=== PATIENT | female | born 1930 | race Caucasian/White ===

== ENCOUNTER 2018-08-04 08:30 | Inpatient (IN) ==
[2018-08-04] MEDS ORDERED: dilTIAZem HCl 5 MG/ML 5 ML VIAL IV STA (08:42)
[2018-08-04] MEDS ORDERED: FUROSEMIDE 40 MG/4 ML VIAL IV STA (08:42)
--- NOTE | 2018-08-04 09:03 | XRay Report ---
XR chest 1V portable CLINICAL HISTORY: 88 years-old Female presenting with Dyspnea. TECHNIQUE: Portable upright AP view of the chest was obtained. COMPARISON: None. FINDINGS: Atherosclerosis of the aortic arch. Cardiac silhouette enlarged. Pulmonary vascular prominence. Asymm etric bronchial wall thickening on the right with diffuse right lung density and more focal patchy no dular opacities with a slight basilar predominance. Small right and trace left pleural effusion suspe cted. No pneumothorax. Degenerative changes of the thoracic spine. Upper abdomen normal. IMPRESSION: 1. Cardiomegaly with volume overload. 2. Given the asymmetry of the right lung patchy infiltrates, an underlying process such as infection or metastatic disease cannot be excluded. Asymmetric congestive change and pulmonary edema are possi ble though less likely. Consider chest CT for further violation. 3. Small pleural effusions. Electronically signed by: Max Cosme M.D. 08/04/2018 9:02 AM
[2018-08-04 09:17] LABS: Hematocrit (blood only) 30.1 % (37-47); Hemoglobin 9.4 g/dL (12.0-16.0); Mean Corpuscular Hgb Conc 31.2 g/dL (32-36); Mean Corpuscular Volume 88.5 fL (80-100); Mean Platelet Volume 10.7 fL (7.4-10.4); Platelet Count 283 K/uL (130-400); RDW Coefficient of Variation 15.6 % (11.5-14.5); RDW Standard Deviation 50.5 fL (36.4-46.3); White Blood Count 17.19 K/uL (4.8-10.8)
[2018-08-04 09:35] LABS: INR 1.1 (0.9-1.1); Partial Thromboplastin Ratio 0.9; Partial Thromboplastin Time 23.3 Seconds (21.0-31.0); Prothrombin Time 10.9 Seconds (9.0-12.0)
[2018-08-04 09:36] LABS: Basophils # (auto) 0.02 K/uL (0-0.2); Basophils % (auto) 0.1 %; Echinocytes 1+; Eosinophils # (auto) 0.07 K/uL (0-0.5); Eosinophils % (auto) 0.4 %; Immature Granulocytes # (auto) 0.07 K/uL (0.00-0.02); Immature Granulocytes % (auto) 0.4 %; Lymphocytes # (auto) 2.07 K/uL (1.2-3.4); Monocytes # (auto) 0.83 K/uL (0.11-0.59); Monocytes % (auto) 4.8 %; Neutrophils # (auto) 14.13 K/uL (1.4-6.5); Neutrophils % (auto) 82.3 %
[2018-08-04 09:43] LABS: Albumin Level 2.9 gm/dl (3.4-5.0); BUN Creatinine Ratio 20.8 (10-20); Calcium 8.9 mg/dl (8.5-10.1); Creatinine Clr Calc Pharmacy 13.8 ml/min; Est GFR (African American) 18.1; Est GFR (Non-African American) 15.6; Potassium 4.6 mmol/L (3.5-5.1)
[2018-08-04 09:56] LABS: Appearance Urine Clear (Clear); Bilirubin Urine Negative (Negative); Blood Urine Negative (Negative); Color Urine Yellow; Glucose Urine UA Negative (Negative); Ketones Urine Negative (Negative); Leukocyte Esterase Urine Trace (Negative); Nitrite Urine Negative (Negative); Protein Urine 2+ (Negative); Specific Gravity Urine 1.015 (1.000-1.030); Urobilinogen Urine Negative (Negative); pH Urine 5.5 (4.5-7.5)
[2018-08-04 10:30] LABS: Albumin Globulin Ratio 0.8 (0.9-2); Bilirubin,Total 0.4 mg/dl (0.2-1); Globulin 3.6 gm/dl (2.5-4.0); Total Protein 6.5 gm/dl (6.4-8.2); Troponin I 0.094 ng/ml (0-0.045)
[2018-08-04 10:48] LABS: Amorphous Sediment Urine Present (None Prsent); Bacteria Urine 3+ (Negative); RBC Urine 0-4 /hpf (0-4)
--- NOTE | 2018-08-04 11:39 | CT Scan Report ---
CT chest wo con CLINICAL HISTORY: 88 years-old Female presenting with hypoxia, shortness of breath, f/u CXR. TECHNIQUE: Multidetector CT imaging of the chest was performed without the use of intravenous contras t. IV contrast: None. One or more dose lowering techniques were used consistent with the principles o f ALARA (as low as reasonably achievable), including automatic exposure control, mA or kV adjustment to individual patient size, and/or use of iterative reconstruction. COMPARISON: Chest x-ray from earlier today. CT DOSE (mGy.cm): The estimated cumulative dose is 177.20 mGy.cm. FINDINGS: Building Performance Consultant topogram: Cardiomegaly. Soft tissues: Normal thyroid and thoracic inlet. Numerous scattered subcentimeter mediastinal lymph n odes, nonspecific. Atherosclerosis of the aorta. Multichamber enlargement of the heart. Coronary gabe ry, aortic valve, and mitral annular calcification. Small bilateral pleural effusions. Pericardial cy st suggested along the right cardiophrenic angle. No pericardial effusion. Large sliding-type hiatal hernia. Lungs and airways: No pneumothorax. Central airways patent allowing for the expiratory phase of respi ration. Pulmonary arteries enlarged relative to adjacent bronchi. Interlobular septal prominence most pronounced in the right upper lobe. Extensive volume loss and consolidation in the right middle and lower lobes and to a lesser extent in the left lower lobe. This primarily represents passive atelecta sis in the setting of the effusions. Patchy groundglass opacity noted in the right upper and middle l obes. Minimal groundglass opacity is also noted at the lung bases. Musculoskeletal: Degenerative changes of the spine. IMPRESSION: 1. Bilateral pleural effusions with extensive passive atelectasis. 2. Patchy groundglass infiltrates in the right upper and middle lobes. While the distribution and as ymmetry due not favor pulmonary edema, this diagnosis is not excluded. However, other evidence consid erations include an infectious or inflammatory infiltrate. 3. Mild pulmonary edema may be present at the lung bases. 4. Cardiomegaly. 5. Large sliding-type hiatal hernia. Electronically signed by: Max Cosme M.D. 08/04/2018 11:38 AM
[2018-08-04] MEDS ORDERED: HEPARIN SOD 5,000 UNIT/0.5 ML VIAL ONE (11:49)
[2018-08-04] MEDS ORDERED: ACETAMINOPHEN 325 MG TAB PO PRN (12:15)
[2018-08-04] MEDS ORDERED: GLUCOSE 40% GEL 15 GM TUBE PO PRN (12:18)
[2018-08-04] MEDS ORDERED: GLUCAGON FOR INJ 1 MG VIAL SQ PRN (12:18)
[2018-08-04] MEDS ORDERED: GLUCOSE 10 TABS/TUBE PO PRN (12:18)
[2018-08-04] MEDS ORDERED: DEXTROSE 50% 50 ML SYRINGE IV PRN (12:18)
[2018-08-04] MEDS ORDERED: CARBOHYDRATES FOR HYPOGLYCEMIA PO PRN (12:18)
[2018-08-04] MEDS: Heparin Adult STANDARD Wt-Based Dextrose 5% 25,000 units/500 mL IV SCH (12:41)
--- NOTE | 2018-08-04 12:49 | History & Physical Report ---
Date of Service August 04, 2018 Assessment & Plan (1) Atrial fibrillation, rapid: -Admit to telemetry -Patient presenting from home with reports of shortness of breath, lightheadedness, diaphoresis; found to be in A. fib with RVR -Received diltiazem 15mg IV for EMS and then an additional 20 mg IV in the ED with improvement in heart rates -No history of atrial fibrillation -will start metoprolol 12.5 mg p.o. every 6 hours -Start heparin; [id number] score 5 (HTN, age, DM, female; score possibly 6 with CHF, echo pending) -Initial troponin 0.094, no reports of chest pain, likely demand ischemia from A. fib with RVR; will continue to trend -Resting echo -Cardiology consult (2) Acute CHF: -Possibly from A. fib with RVR -No reported history of CHF (outpatient records unavailable) -Received furosemide 40 mg IV in the ED -Noted to be on Bumex 1 mg every other day at home -Creatinine 2.6 (unknown baseline) -Reevaluate patient later today and consider additional diuresis -Echo -Low Na+ diet, Hernandes placed, I's and O's, daily weights (3) Acute respiratory failure: -Initially requiring BiPAP in the ED secondary to tachypnea and increased work of breathing -Now doing well on 6 L via oxygen mask -Likely due to volume overload however given leukocytosis and infiltrates noted on CT chest, will place empirically on ceftriaxone and doxycycline; noted normal lactate and procalcitonin (4) Possible urinary tract infection: -UA suggest possible UTI, on ceftriaxone as above -Follow culture (5) Chronic kidney disease: -Unknown baseline, records requested from PCP -Creatinine 2.6 today, continue to monitor (6) HTN (hypertension): -BP elevated on arrival, improved after IV diltiazem -Continue home doses of clonidine and doxazosin, will hold losartan for now in light of unknown baseline creatinine and diuresis (7) COPD (chronic obstructive pulmonary disease): -No wheezing noted on exam -Continue home Advair -[id number] nebulizers (8) Diabetes: -Hgb A1c unknown, will check -Hold oral agents and utilize NovoLog per protocol while hospitalized (9) DVT prophylaxis: -On IV heparin History of Present Illness Chief Complaint: Shortness of breath Primary Care Provider: FAHEEM MARS 88-year-old female who presents to the ED with shortness of breath. Patient is currently visiting from out of town, staying with her daughter. She arrived yesterday. She was in her usual state of health yesterday. This morning, around 4 AM, she called out to her daughter and reported that she was short of breath. Her daughter found her leaning over, very short of breath, and diaphoretic. Patient also reports she felt lightheaded. EMS was then called. Patient denies chest pain and palpitations. She has chronic lower extremity edema which is managed by her outpatient master police detective. This is been mildly increased over the past couple of weeks. Patient denies orthopnea. No cough or sputum production. Denies fevers and chills. No abdominal pain, nausea, vomiting, diarrhea. She denies urinary symptoms. Upon EMS arrival, patient was found to be in A. fib with RVR. She was given diltiazem 50 mg IV and transported to the ED. In the ER, she was placed on BiPAP secondary to tachypnea and increased work of breathing. She remained in A. fib with RVR and was given an additional diltiazem 20 mg IV and Lasix 40 mg IV. EKG shows LBBB with A. fib RVR. Labs show WBC 17 K, Hgb 9.4, creatinine 2.6, initial troponin 0 0.094. Negative procalcitonin lactate. UA suggest possible UTI. CXR shows volume overload and possible underlying pneumonia. Allergies Allergy/AdvReac Type Severity Reaction Status Date / Time No Known Allergies Allergy Unverified 08/04/18 09:22 Home Medications Home Medications Medication Instructions Recorded Confirmed Type aspirin 81 mg PO QAM 08/04/18 08/04/18 History bumetanide 1 mg PO Q2D 08/04/18 08/04/18 History cholecalciferol (vitamin D3) 5,000 unit PO QAM 08/04/18 08/04/18 History [Vitamin D3] clonidine HCl 0.3 mg PO BIDM 08/04/18 08/04/18 History doxazosin 4 mg PO QAM 08/04/18 08/04/18 History fluticasone propion-salmeterol 1 puff INHALATION BID 08/04/18 08/04/18 History [Advair Diskus] glimepiride 3 mg PO QAM 08/04/18 08/04/18 History losartan 100 mg PO PM 08/04/18 08/04/18 History simvastatin 40 mg PO PM 08/04/18 08/04/18 History sitagliptin [Januvia] 25 mg PO PM 08/04/18 08/04/18 History Past Med/Surg History Medical History Chronic kidney disease (Chronic) History of hysterectomy (Chronic) Lower extremity edema (Chronic) HTN (hypertension) (Chronic) COPD (chronic obstructive pulmonary disease) (Chronic) Diabetes (Chronic) Family History Father Emphysema lung Mother Stroke Social History Communication Ability: Effective Beliefs That Will Affect Care: None marital status: / Current Living Situation: Alone current occupational status: retired Other Information That Helps Us Care for You: No Feels Safe at Home: Yes Safety Concerns: Feels Safe At This Time Smoking Status: Never smoker Hx Alcohol Use: No Hx Substance Use: No Review of Systems Review of Systems: ROS per HPI, all other systems reviewed and negative Physical Exam Constitutional: WD/WN, vitals as above Eyes: PERRL, conjunctivae normal, anicteric sclerae ENMT: external ear and nose normal, oropharynx normal Respiratory: normal respiratory effort; no respiratory distress Auscultation: + diminished lung sounds On BiPAP Cardiovascular: Rate/Rhythm: + tachycardic and + irregularly irregular Vessels: normal peripheral pulses Extremities: + edema (+3 pitting BLE) Gastrointestinal (Abdomen): normal bowel sounds, soft, nontender, no hepatosplenomegaly Musculoskeletal: no cyanosis or clubbing, extremities motor strength 5/5 Skin: no rashes, warm and dry Neurologic: PERRL, EOMI, accommodation nl, no face palsy, no dysarthria Psychiatric: A+Ox3, euthymic affect Genitourinary: Hernandes in place draining clear yellow urine Results & Data Vital Signs (Past 12 Hours) Vital Signs Temp Pulse Resp BP BP Pulse Ox 08/04/18 12:16 36.5 C 20 163/80 H 97 08/04/18 12:15 36.5 C 08/04/18 11:30 107 H 23 162/81 H 97 08/04/18 11:03 83 24 98 08/04/18 11:00 91 H 21 166/77 H 99 08/04/18 10:33 168/75 H 08/04/18 10:30 96 H 21 96 08/04/18 10:00 96 H 20 160/89 H 96 08/04/18 09:55 120 H 22 78 L 08/04/18 09:54 100 H 22 168/77 H 93 08/04/18 09:32 100 H 23 95 08/04/18 09:31 105 H 20 151/95 H 93 08/04/18 09:30 103 H 24 91 08/04/18 09:08 103 H 30 H 94 08/04/18 09:02 109 H 29 H 94 08/04/18 09:01 112 H 33 H 171/104 H 93 08/04/18 09:00 111 H 31 H 93 08/04/18 08:57 128 H 30 H 193/110 H 94 08/04/18 08:51 119 H 32 H 183/87 H 92 08/04/18 08:38 127 H 36 H 193/110 H 98 08/04/18 08:37 127 H 32 H 100 08/04/18 08:35 126 H 33 H 97 Laboratory Results Short CBC 08/04/18 Range/Units 08:42 WBC 17.19 H (4.8-10.8) K/uL Hgb 9.4 L (12.0-16.0) g/dL Hct 30.1 L (37-47) % Plt Count 283 (130-400) K/uL BMP 08/04/18 08:42 Sodium 140 Potassium 4.6 Chloride 107 Carbon Dioxide 22 BUN 55 H Creatinine 2.66 H Glucose 205 H Calcium 8.9 Cardiac Enzymes 08/04/18 Range/Units 08:42 Troponin I 0.094 H* (0-0.045) ng/ml Liver Function 08/04/18 Range/Units 08:42 Total Bilirubin 0.4 (0.2-1) mg/dl AST 22 (15-37) U/L ALT 20 (12-78) U/L Alkaline Phosphatase 75 (45-117) U/L Albumin 2.9 L (3.4-5.0) gm/dl Urine 08/04/18 Range/Units 09:30 Urine Color Yellow Urine Appearance Clear (Clear) Urine pH 5.5 (4.5-7.5) Ur Specific [place] 1.015 (1.000-1.030) Urine Protein 2+ H (Negative) Urine Glucose (UA) Negative (Negative) Diagnostic Findings CXR IMPRESSION: 1. Cardiomegaly with volume overload. 2. Given the asymmetry of the right lung patchy infiltrates, an underlying process such as infection or metastatic disease cannot be excluded. Asymmetric congestive change and pulmonary edema are possible though less likely. Consider chest CT for further violation. 3. Small pleural effusions. CHEST CT IMPRESSION: 1. Bilateral pleural effusions with extensive passive atelectasis. 2. Patchy groundglass infiltrates in the right upper and middle lobes. While the distribution and asymmetry due not favor pulmonary edema, this diagnosis is not excluded. However, other evidence considerations include an infectious or inflammatory infiltrate. 3. Mild pulmonary edema may be present at the lung bases. 4. Cardiomegaly. 5. Large sliding-type hiatal hernia. Code Status & VTE Plan Code Status Patient is a DNR as per my discussion with her and her daughter who is the bedside. VTE Prophylaxis Plan VTE Prophylaxis will be ordered: Yes Supervising Physician Co-Signing Physician Notes Patient is an 88-year-old female with history of diabetes, CKD, COPD, hypertension and other problems presents with history of sudden onset of shortne ss of breath today morning. She had a brief episode of diaphoresis associated with mild lightheadedness. Family states that patient had chronic bilateral lower extremity edema which could have slightly progressed from her baseline. Patient was found to be in A. fib RVR while in ED and was given diltiazem. Patient was also found to be tachypneic, and has labored breathing and was placed on BiPAP which later was transitioned to nasal cannula. Labs showed elevated white count at 17 K, anemia-hemoglobin of 9.4, creatinine at 2.66, unknown baseline, mild troponin elevation 0.094, normal lactate and procalcitonin levels. Urine analysis is abnormal, patient denies any urinary symptoms. CT chest showed bilateral pleural effusions with extensive atelectasis, patchy groundglass infiltrates in the right upper limb edema. EKG showed A. fib RVR with premature ventricular complexes, left bundle branch block, QTC 511, no previous EKGs to compare to. Patient currently denies any chest pain, palpitations. No known history of cough, fever chills. Patient is elderly, no apparent distress, normocephalic atraumatic, lungs decreased breath sounds at bases, irregularly irregular rhythm, tachycardia, abdomen soft nontender, grossly normal focal neurological deficits, bilateral lower extremity edema 2-3+, skin on right mario. Patient is admitted for management of A. fib RVR, volume overload likely secondary to tachyarrhythmia. To R/O UTI. Troponin elevation likely due to demand ischemia. Agree with starting metoprolol, IV heparin, ceftriaxone, Doxy. Will hold losartan for now. IV lasix as needed. Supplemental oxygen as needed, cardiology is consulted. Check ECHO. Will obtain old records. I personally reviewed the record. Patient is interviewed and examined at bedside. Patient's care is coordinated with Dana Palm [employer]. Please refer to the documentation above for details of patient's presentation and for discussion of other issues.
[2018-08-04 13:06] LABS: Estimated Average Glucose 177 mg/dl; Hemoglobin A1C 7.8 % (4.5-5.6)
--- NOTE | 2018-08-04 13:39 | Emergency Department Note ---
Entered by Leslye Almanza acting as a scribe for History of Present Illness General Chief complaint: Respiratory Distress Stated complaint: sob Source: patient and family (daughter) History of Present Illness Onset (ago): hour(s) (this morning) Location: eyes Pain Consistency: + other (episode) Quality: + other (shortness of breath) Associated symptoms: + diaphoresis The patient is a 88 year old female that is presenting to the Emergency Room with complaints of an episode of respiratory distress that started this morning. The patient's daughter reports that the patient repeatedly stated that she was unable to breath while seated. Her daughter notes that the patient started sweating and was bent over in her chair. Her daughter states that she decided to call EMS at that time as the symptoms were abnormal for the patient. Her daughter notes that the patient has a history of atrial fibrillation, COPD, diabetes, and kidney disease. Her daughter reports that the patient's bilateral legs are swollen at baseline secondary to her kidney disease. Her daughter states that the patient takes diuretics and that the patient's provider is working on finding the correct dosage. The patient's daughter notes that the patient lives by herself normally and is able to carry out most daily functions on her own. Her daughter states that the patient's other daughter checks on the patient daily to make sure she takes her medications and eats regularly. Her daughter notes that patient has some short term memory loss. Her daughter denies any known history of heart disease for the patient. She denies that the patient takes any blood thinners regularly. EMS notes that the patient received 15mg of Cardizem IV by my medic command and a Duoneb en route. Home Medications Home Medications Medication Instructions Recorded Confirmed Type aspirin 81 mg PO QAM 08/04/18 08/04/18 History bumetanide 1 mg PO Q2D 08/04/18 08/04/18 History cholecalciferol (vitamin D3) 5,000 unit PO QAM 08/04/18 08/04/18 History [Vitamin D3] clonidine HCl 0.3 mg PO BIDM 08/04/18 08/04/18 History doxazosin 4 mg PO QAM 08/04/18 08/04/18 History fluticasone propion-salmeterol 1 puff INHALATION BID 08/04/18 08/04/18 History [Advair Diskus] glimepiride 3 mg PO QAM 08/04/18 08/04/18 History losartan 100 mg PO PM 08/04/18 08/04/18 History simvastatin 40 mg PO PM 08/04/18 08/04/18 History sitagliptin [Januvia] 25 mg PO PM 08/04/18 08/04/18 History Allergies Allergy/AdvReac Type Severity Reaction Status Date / Time No Known Allergies Allergy Unverified 08/04/18 09:22 Past Med/Surg History Medical History Chronic kidney disease (Chronic) History of hysterectomy (Chronic) Lower extremity edema (Chronic) HTN (hypertension) (Chronic) COPD (chronic obstructive pulmonary disease) (Chronic) Diabetes (Chronic) Family History Father Emphysema lung Mother Stroke Social History Communication Ability: Effective Beliefs That Will Affect Care: None marital status: / Current Living Situation: Alone current occupational status: retired Other Information That Helps Us Care for You: No Feels Safe at Home: Yes Safety Concerns: Feels Safe At This Time Smoking Status: Never smoker Hx Alcohol Use: No Hx Substance Use: No Review of Systems See HPI for pertinent positives & negatives. and A total of 10 systems reviewed and were otherwise negative Physical Exam Vital Signs Vital Signs - 24 hr 08/04/18 08:35 08/04/18 08:37 08/04/18 08:38 Sepsis Recent Fever Within 48 Hours Sepsis New/Unexplained Change in Mental Status Sepsis Action Taken by Nursing Pulse Rate 126 H 127 H 127 H Pulse Rate from SpO2 Sensor 131 H 127 H Pulse Strength Respiratory Rate 33 H 32 H 36 H Respiratory Effort / Characteristics Short of Breath Respiratory Depth Shallow Respiratory Pattern Tachypnea Blood Pressure 193/110 H Blood Pressure [Left Arm] Blood Pressure Mean 137 Blood Pressure Mean [Left Arm] Blood Pressure Position Blood Pressure Position [Left Arm] Pulse Oximetry 97 100 98 Oxygen Delivery Method Fraction of Inspired Oxygen 35 08/04/18 08:51 08/04/18 08:57 08/04/18 09:00 Sepsis Recent Fever Within 48 Hours No Sepsis New/Unexplained Change in Mental Status No Sepsis Action Taken by Nursing No Action Required Pulse Rate 119 H 128 H 111 H Pulse Rate from SpO2 Sensor 117 H 112 H Pulse Strength Normal Respiratory Rate 32 H 30 H 31 H Respiratory Effort / Characteristics Spontaneous Labored Respiratory Depth Deep Respiratory Pattern Rapid/Shallow Blood Pressure 183/87 H 193/110 H Blood Pressure [Left Arm] Blood Pressure Mean 119 137 Blood Pressure Mean [Left Arm] Blood Pressure Position Sitting Blood Pressure Position [Left Arm] Pulse Oximetry 92 94 93 Oxygen Delivery Method BiPAP Fraction of Inspired Oxygen 08/04/18 09:01 08/04/18 09:02 08/04/18 09:04 Sepsis Recent Fever Within 48 Hours Sepsis New/Unexplained Change in Mental Status Sepsis Action Taken by Nursing Pulse Rate 112 H 109 H Pulse Rate from SpO2 Sensor 111 H 109 H Pulse Strength Respiratory Rate 33 H 29 H Respiratory Effort / Characteristics Spontaneous Labored Respiratory Depth Shallow Respiratory Pattern Rapid/Shallow Tachypnea Blood Pressure 171/104 H Blood Pressure [Left Arm] Blood Pressure Mean 126 Blood Pressure Mean [Left Arm] Blood Pressure Position Blood Pressure Position [Left Arm] Pulse Oximetry 93 94 Oxygen Delivery Method BiPAP Fraction of Inspired Oxygen 08/04/18 09:08 08/04/18 09:30 08/04/18 09:31 Sepsis Recent Fever Within 48 Hours Sepsis New/Unexplained Change in Mental Status Sepsis Action Taken by Nursing Pulse Rate 103 H 103 H 105 H Pulse Rate from SpO2 Sensor 107 H 104 H Pulse Strength Respiratory Rate 30 H 24 20 Respiratory Effort / Characteristics Respiratory Depth Respiratory Pattern Blood Pressure 151/95 H Blood Pressure [Left Arm] Blood Pressure Mean 113 Blood Pressure Mean [Left Arm] Blood Pressure Position Blood Pressure Position [Left Arm] Pulse Oximetry 94 91 93 Oxygen Delivery Method BiPAP Fraction of Inspired Oxygen 08/04/18 09:32 08/04/18 09:54 08/04/18 09:55 Sepsis Recent Fever Within 48 Hours Sepsis New/Unexplained Change in Mental Status Sepsis Action Taken by Nursing Pulse Rate 100 H 100 H 120 H Pulse Rate from SpO2 Sensor 102 H 98 H 94 H Pulse Strength Respiratory Rate 23 22 22 Respiratory Effort / Characteristics Respiratory Depth Respiratory Pattern Blood Pressure 168/77 H Blood Pressure [Left Arm] Blood Pressure Mean 107 Blood Pressure Mean [Left Arm] Blood Pressure Position Blood Pressure Position [Left Arm] Pulse Oximetry 95 93 78 L Oxygen Delivery Method Fraction of Inspired Oxygen 08/04/18 10:00 08/04/18 10:30 08/04/18 10:33 Sepsis Recent Fever Within 48 Hours Sepsis New/Unexplained Change in Mental Status Sepsis Action Taken by Nursing Pulse Rate 96 H 96 H Pulse Rate from SpO2 Sensor 95 H 92 H Pulse Strength Respiratory Rate 20 21 Respiratory Effort / Characteristics Respiratory Depth Respiratory Pattern Blood Pressure 160/89 H Blood Pressure [Left Arm] 168/75 H Blood Pressure Mean 112 Blood Pressure Mean [Left Arm] 106 Blood Pressure Position Blood Pressure Position [Left Arm] Lying Pulse Oximetry 96 96 Oxygen Delivery Method Fraction of Inspired Oxygen Vital signs reviewed. General: Well-appearing elderly female, in no significant distress. CPAP in place. HEENT: No scleral icterus, PERRLA, neck supple. Atraumatic. Cardiovascular: Tachycardic with irregular rhythm, no extra sounds. Pulmonary: Coarse breath sounds bilaterally with diminished bases. Abdomen: Soft, nontender, nondistended, positive bowel sounds. Musculoskeletal: Atraumatic. 3 to 4+ pedal edema in bilateral lower extremities with walking boots in place. Neurologic: Patient awake alert and oriented x 3. Skin: Warm, dry, no rash Course 0838:The patient was evaluated in room B12B. A complete history and physical examination was performed. 0930: I updated the patient and her daughter on the patient's current lab and imaging results. The patient is resting comfortably at this time. 1005: I reevaluated the patient at this time. Her O2 saturation was 93% and her heart rate was down to 96 bpm. She continues to be in atrial fibrillation. 1007: I discussed the patient's case with MARVIN Smith, who will evaluate the patient for further management and care with Dr. Ureña as the attending physician. 1015: Upon reevaluation, the patient is resting comfortably. I discussed laboratory and radiographic results with the patient and her daughter. They verbalized agreement of the treatment plan. The patient will be evaluated for further management and care. Consultations Consultation #1: I discussed the patient's case with MARVIN Smith, who will evaluate the patient for further management and care with Dr. Ureña as the attending physician. Time: 10:07 Administered Medications Ceftriaxone Sodium 1,000 mg/ (Dextrose) 50 mls @ 100 mls/hr IV Q24H [facility]; Protocol Stop: 08/09/18 13:59 Last Admin: 08/04/18 14:09 Dose: 100 mls/hr Documented by: [id number] Heparin Sodium/Dextrose (Heparin Sodium/Dextrose) 25,000 units in 500 mls @ 21 mls/hr IV .[id number] [facility]; Protocol Stop: 09/03/18 12:44 Last Admin: 08/04/18 12:41 Dose: 1,050 units/hr, 21 mls/hr Documented by: [id number] Cosigned by: [id number] Ipratropium [place] (Atrovent 0.02% 0.5mg/2.5ml) 0.5 mg INH Q6R [facility] Stop: 09/03/18 13:59 Last Admin: 08/04/18 14:08 Dose: 0.5 mg Documented by: [id number] Levalbuterol HCl (Xopenex 1.25mg/0.5ml Neb) 1.25 mg INH Q6R [facility] Stop: 09/03/18 13:59 Last Admin: 08/04/18 14:08 Dose: 1.25 mg Documented by: [id number] Discontinued Medications Diltiazem HCl (Cardizem) 20 mg IV NOW STA Stop: 08/04/18 08:43 Last Admin: 08/04/18 08:47 Dose: 20 mg Documented by: [id number] Cosigned by: [id number] Furosemide (Lasix) 40 mg IV NOW STA Stop: 08/04/18 08:43 Last Admin: 08/04/18 08:48 Dose: 40 mg Documented by: [id number] Heparin Sodium (Porcine) (Heparin Sodium (Porcine)) Confirm Administered Dose 5,000 units .ROUTE .STK-MED ONE Stop: 08/04/18 11:50 Last Admin: 08/04/18 11:58 Dose: 5,000 units Documented by: [id number] Cosigned by: [id number] Heparin Sodium/Dextrose () 1 ea IV NOW STA; Protocol Stop: 08/04/18 10:52 Last Admin: 08/04/18 11:59 Dose: Not Given Documented by: [id number] Medical Decision Making Differential Diagnosis Differential diagnosis: Etiologies such as infections, reactive airway disease, pneumonia, pneumothorax, COPD, CHF, cardiac ischemia, pulmonary embolism, musculoskeletal, gastrointestinal, as well as others were entertained. Medical Records Attestation: I reviewed the patient's medical records. Home Medications Current Medication List: was personally reviewed by me Laboratory Data Attestation: I reviewed the patient's lab results. Result diagrams: 08/04/18 08:42 06/08/19 08:42 Lab Results 08/04/18 08/04/18 08/04/18 Range/Units 08:42 08:42 08:42 WBC 17.19 H (4.8-10.8) K/uL RBC 3.40 L (4.2-5.4) M/uL Hgb 9.4 L (12.0-16.0) g/dL Hct 30.1 L (37-47) % MCV 88.5 (80-100) fL MCH 27.6 (25-34) pg MCHC 31.2 L (32-36) g/dL RDW Std Deviation 50.5 H (36.4-46.3) fL RDW Coeff of Nba 15.6 H (11.5-14.5) % Plt Count 283 (130-400) K/uL MPV 10.7 H (7.4-10.4) fL Immature Gran % (Auto) 0.4 % Neut % (Auto) 82.3 % Lymph % (Auto) 12.0 % Martin % (Auto) 4.8 % Eos % (Auto) 0.4 % Baso % (Auto) 0.1 % Immature Gran # (Auto) 0.07 H (0.00-0.02) K/uL Neut # (Auto) 14.13 H (1.4-6.5) K/uL Lymph # (Auto) 2.07 (1.2-3.4) K/uL Martin # (Auto) 0.83 H (0.11-0.59) K/uL Eos # (Auto) 0.07 (0-0.5) K/uL Baso # (Auto) 0.02 (0-0.2) K/uL Echinocytes 1+ PT 10.9 (9.0-12.0) Seconds INR 1.1 (0.9-1.1) APTT 23.3 (21.0-31.0) Seconds PTT Ratio 0.9 Sodium 140 (136-145) mmol/L Potassium 4.6 (3.5-5.1) mmol/L Chloride 107 (98-107) mmol/L Carbon Dioxide 22 (21-32) mmol/L Anion Gap 11.0 (3-11) BUN 55 H (7-18) mg/dl Creatinine 2.66 H (0.6-1.2) mg/dl Est Cr Clr Drug Dosing 13.8 ml/min Est GFR ( Amer) 18.1 Est GFR (Non-Af Amer) 15.6 BUN/Creatinine Ratio 20.8 H (10-20) Glucose 205 H (70-99) mg/dl Estimat Average Glucose mg/dl Hemoglobin A1c (4.5-5.6) % Lactate (0.4-2.0) mmol/L Calcium 8.9 (8.5-10.1) mg/dl Total Bilirubin 0.4 (0.2-1) mg/dl AST 22 (15-37) U/L ALT 20 (12-78) U/L Alkaline Phosphatase 75 (45-117) U/L Troponin I 0.094 H* (0-0.045) ng/ml Total Protein 6.5 (6.4-8.2) gm/dl Albumin 2.9 L (3.4-5.0) gm/dl Globulin 3.6 (2.5-4.0) gm/dl Albumin/Globulin Ratio 0.8 L (0.9-2) Procalcitonin (0-0.5) ng/ml Urine Color Urine Appearance (Clear) Urine pH (4.5-7.5) Ur Specific Tiro (1.000-1.030) Urine Protein (Negative) Urine Glucose (UA) (Negative) Urine Ketones (Negative) Urine Blood (Negative) Urine Nitrite (Negative) Urine Bilirubin (Negative) Urine Urobilinogen (Negative) Ur Leukocyte Esterase (Negative) Urine RBC (0-4) /hpf Urine WBC (0-5) /hpf Ur Epithelial Cells (0-5) /lpf Amorphous Sediment (None Prsent) Urine Bacteria (Negative) 08/04/18 08/04/18 08/04/18 Range/Units 08:42 09:30 10:48 WBC (4.8-10.8) K/uL RBC (4.2-5.4) M/uL Hgb (12.0-16.0) g/dL Hct (37-47) % MCV (80-100) fL MCH (25-34) pg MCHC (32-36) g/dL RDW Std Deviation (36.4-46.3) fL RDW Coeff of Nba (11.5-14.5) % Plt Count (130-400) K/uL MPV (7.4-10.4) fL Immature Gran % (Auto) % Neut % (Auto) % Lymph % (Auto) % Martin % (Auto) % Eos % (Auto) % Baso % (Auto) % Immature Gran # (Auto) (0.00-0.02) K/uL Neut # (Auto) (1.4-6.5) K/uL Lymph # (Auto) (1.2-3.4) K/uL Martin # (Auto) (0.11-0.59) K/uL Eos # (Auto) (0-0.5) K/uL Baso # (Auto) (0-0.2) K/uL Echinocytes PT (9.0-12.0) Seconds INR (0.9-1.1) APTT (21.0-31.0) Seconds PTT Ratio Sodium (136-145) mmol/L Potassium (3.5-5.1) mmol/L Chloride (98-107) mmol/L Carbon Dioxide (21-32) mmol/L Anion Gap (3-11) BUN (7-18) mg/dl Creatinine (0.6-1.2) mg/dl Est Cr Clr Drug Dosing ml/min Est GFR ( Amer) Est GFR (Non-Af Amer) BUN/Creatinine Ratio (10-20) Glucose (70-99) mg/dl Estimat Average Glucose 177 mg/dl Hemoglobin A1c 7.8 H (4.5-5.6) % Lactate 2.0 (0.4-2.0) mmol/L Calcium (8.5-10.1) mg/dl Total Bilirubin (0.2-1) mg/dl AST (15-37) U/L ALT (12-78) U/L Alkaline Phosphatase (45-117) U/L Troponin I (0-0.045) ng/ml Total Protein (6.4-8.2) gm/dl Albumin (3.4-5.0) gm/dl Globulin (2.5-4.0) gm/dl Albumin/Globulin Ratio (0.9-2) Procalcitonin (0-0.5) ng/ml Urine Color Yellow Urine Appearance Clear (Clear) Urine pH 5.5 (4.5-7.5) Ur Specific Tiro 1.015 (1.000-1.030) Urine Protein 2+ H (Negative) Urine Glucose (UA) Negative (Negative) Urine Ketones Negative (Negative) Urine Blood Negative (Negative) Urine Nitrite Negative (Negative) Urine Bilirubin Negative (Negative) Urine Urobilinogen Negative (Negative) Ur Leukocyte Esterase Trace H (Negative) Urine RBC 0-4 (0-4) /hpf Urine WBC 10-30 H (0-5) /hpf Ur Epithelial Cells 5-10 H (0-5) /lpf Amorphous Sediment Present A (None Prsent) Urine Bacteria 3+ H (Negative) 08/04/18 Range/Units 10:48 WBC (4.8-10.8) K/uL RBC (4.2-5.4) M/uL Hgb (12.0-16.0) g/dL Hct (37-47) % MCV (80-100) fL MCH (25-34) pg MCHC (32-36) g/dL RDW Std Deviation (36.4-46.3) fL RDW Coeff of Nba (11.5-14.5) % Plt Count (130-400) K/uL MPV (7.4-10.4) fL Immature Gran % (Auto) % Neut % (Auto) % Lymph % (Auto) % Martin % (Auto) % Eos % (Auto) % Baso % (Auto) % Immature Gran # (Auto) (0.00-0.02) K/uL Neut # (Auto) (1.4-6.5) K/uL Lymph # (Auto) (1.2-3.4) K/uL Martin # (Auto) (0.11-0.59) K/uL Eos # (Auto) (0-0.5) K/uL Baso # (Auto) (0-0.2) K/uL Echinocytes PT (9.0-12.0) Seconds INR (0.9-1.1) APTT (21.0-31.0) Seconds PTT Ratio Sodium (136-145) mmol/L Potassium (3.5-5.1) mmol/L Chloride (98-107) mmol/L Carbon Dioxide (21-32) mmol/L Anion Gap (3-11) BUN (7-18) mg/dl Creatinine (0.6-1.2) mg/dl Est Cr Clr Drug Dosing ml/min Est GFR ( Amer) Est GFR (Non-Af Amer) BUN/Creatinine Ratio (10-20) Glucose (70-99) mg/dl Estimat Average Glucose mg/dl Hemoglobin A1c (4.5-5.6) % Lactate (0.4-2.0) mmol/L Calcium (8.5-10.1) mg/dl Total Bilirubin (0.2-1) mg/dl AST (15-37) U/L ALT (12-78) U/L Alkaline Phosphatase (45-117) U/L Troponin I (0-0.045) ng/ml Total Protein (6.4-8.2) gm/dl Albumin (3.4-5.0) gm/dl Globulin (2.5-4.0) gm/dl Albumin/Globulin Ratio (0.9-2) Procalcitonin 0.10 (0-0.5) ng/ml Urine Color Urine Appearance (Clear) Urine pH (4.5-7.5) Ur Specific Tiro (1.000-1.030) Urine Protein (Negative) Urine Glucose (UA) (Negative) Urine Ketones (Negative) Urine Blood (Negative) Urine Nitrite (Negative) Urine Bilirubin (Negative) Urine Urobilinogen (Negative) Ur Leukocyte Esterase (Negative) Urine RBC (0-4) /hpf Urine WBC (0-5) /hpf Ur Epithelial Cells (0-5) /lpf Amorphous Sediment (None Prsent) Urine Bacteria (Negative) Imaging Data Radiologist's Impression: Radiology results as stated below per my review and th e radiologist's interpretation: XR chest 1V portable CLINICAL HISTORY: 88 years-old Female presenting with Dyspnea. TECHNIQUE: Portable upright AP view of the chest was obtained. COMPARISON: None. FINDINGS: Atherosclerosis of the aortic arch. Cardiac silhouette enlarged. Pulmonary vascular prominence. Asymmetric bronchial wall thickening on the right with diffuse right lung density and more focal patchy nodular opacities with a slight basilar predominance. Small right and trace left pleural effusion suspected. No pneumothorax. Degenerative changes of the thoracic spine. Upper abdomen normal. IMPRESSION: 1. Cardiomegaly with volume overload. 2. Given the asymmetry of the right lung patchy infiltrates, an underlying process such as infection or metastatic disease cannot be excluded. Asymmetric congestive change and pulmonary edema are possible though less likely. Consider chest CT for further violation. 3. Small pleural effusions. Electronically signed by: Max Cosme M.D. 08/04/2018 9:02 AM ECG Data Attestation: I personally reviewed and interpreted this ECG as follows: Indication: SOB/dyspnea Rate (beats per minute): 128 Rhythm: atrial fibrillation (rapid) Findings: + LBBB; no ST depression, no ST elevation and no acute ischemic change Additional Comments: Poor quality baseline for interpretation Blood Pressure Blood Pressure Findings: Elevated blood pressure Blood Pressure Disposition: Referred to patients primary care provider MDM Narrative This patient was evaluated and appeared to be in significant respiratory discomfort. The patient was on CPAP per EMS. She did receive a DuoNeb and IV Cardizem in route. Additional IV Cardizem 20 mg was given at the bedside. IV Lasix was ordered 40 mg. Chest x-ray confirms congestive changes. There is concern over pulmonary infiltrate. The patient does have an elevated WBC at 17. She is afebrile with a history of CHF. Given the massive lower extremity edema and the patient's presentation with atrial fibrillation, I favor CHF over pneumonia. Patient's laboratory work does reveal a mildly elevated troponin, likely due to her renal insufficiency and heart strain. Patient is not anticoagulated however her rate is now well controlled. I will defer anticoagulation to the hospitalist service. She is feeling much improved and heart rate is below 100 bpm. She is on BiPAP saturating well. She is interactive at the bedside. Patient will be evaluated by the [facility] hospitalist for further management. She and her daughter are aware of the plan and agree. Impression & Plan Atrial fibrillation, rapid, CHF (congestive heart failure) Critical Care Time Critical Care Time: Yes Total Critical Care Time: 30 I have personally spent greater than 30 minutes of critical care time in the direct management of this patient. This includes bedside care, interpretation of diagnostic studies, and testing, discussion with consultants, patient, and family members, and other required patient management activities. This 30 minutes is in excess of all separately billable procedures. Discharge Plan Visit Data *Final* Discharge Date/Time: 08/04/18 11:55 Chief Complaint: Respiratory Distress Stated Complaint: sob ED Provider: Lisa Reyes Discharge Problem: Atrial fibrillation, rapid, CHF (congestive heart failure) Patient Disposition: Admitted As Inpatient Discharge Instructions Interventions: ED Discharge Assessment Last Done: 08/04/18 11:55 The scribe's documentation has been prepared under my direction and personally reviewed by me in its entirety. I confirm that the note above accurately reflects all work, treatment, procedures, and medical decision making performed by me.
[2018-08-04] MEDS ORDERED: XOPENEX/ATROVENT 1.25mg/0.5MG NEB COMBO NEB SCH (14:00)
[2018-08-04] MEDS: IPRATROPIUM BROMIDE NEB SOLN 0.02% 2.5 ML VIAL INH SCH ×2 (14:08→19:48)
[2018-08-04] MEDS: LEVALBUTEROL 1.25MG/0.5ML NEB INH SCH ×2 (14:08→19:48)
[2018-08-04] MEDS: cefTRIAXone SODIUM 1,000 MG in DEXTROSE 5% 50 ML IV SCH (14:09)
[2018-08-04] MEDS: METOPROLOL TARTRATE 25 MG TAB PO SCH ×2 (14:55→23:30)
[2018-08-04] MEDS ORDERED: FUROSEMIDE 40 MG in SYRINGE 0 ML IV ONE (16:00)
[2018-08-04] MEDS: INSULIN ASPART 100 UNITS/ML 3 ML PEN SC SCH ×2 (17:28→21:03)
--- NOTE | 2018-08-04 18:05 | Cardiology Consultation ---
Date of Consultation August 04, 2018 Assessment & Plan (1) Atrial fibrillation, rapid: (2) Acute HFrEF (heart failure with reduced ejection fraction): (3) LBBB (left bundle branch block): (4) Mitral regurgitation: (5) Tricuspid regurgitation: (6) Pulmonary hypertension: Patient with interval clinical improvement. Her presenting EKG certainly appears to be atrial fibrillation with rapid ventricular response at 120 bpm, alternatively, sinus tachycardia with frequent superventricular ectopy could been present, but she responded to treatment including diltiazem and furosemide with interval significant improvement. The patient has a left bundle branch block, severe valvular heart disease with severe mitral regurgitation moderate severe tricuspid regurgitation, and reduced left ventricular systolic function in the range of 30-35%. Pulmonary hypertension may very well be due to her underlying mitral regurgitation may be due to pulmonary venous (post capillary) hypertension from the mitral regurgitation. We will hold off on additional diuretic therapy for now given her significant renal insufficiency with creatinine of 2.66. Is difficult to determine what her baseline GFR is perhaps we will actually see interval improvement tomorrow after having received diuretic therapy and improved heart rate control. Her troponin is trended up to 1.7 with the second measurement. This is likely due to demand ischemia in the setting of tachycardia. She is on heparin for stroke prophylaxis, and I think it is reasonable to continue heparin given her elevated troponin as well although her story does not sound suggestive of an acute intracoronary plaque rupture. She did have an abr upt onset of symptoms, and I think this is likely related to onset of the atrial fibrillation. We will start amiodarone for planned rhythm control strategy she is clearly does not tolerate atrial fibrillation, although given her left atrial enlargement and valvular heart disease, she may not stay in sinus rhythm in the long-term. Heparin has been started as outlined above, start Coumadin also. Baseline liver function tests are within normal limits. We will add a TSH on tomorrow given start of amiodarone. History of Present Illness Attending Physician: Inocente Partida MD History of Present Illness Marjorie Macias is an 88 year old female seen in cardiology consultation per the request of MARVIN Smith for the evaluation of shortness of breath and tachycardia. The patient typically lives independently with help from her daughter who lives near her outside of [place]. Last evening, she traveled to [place] to spend time with her other daughter, Jeanne, who accompanies her at the bedside. The patient was reportedly in her normal state of health until 4 AM when she noted abrupt onset of shortness of breath. She did not mention anything to her family until 730. She was subsequently brought to the emergency department by emergency medical services. On arrival, emergency medical services apparently noted the patient was in atrial fibrillation with rapid ventricular response. She received her first dose of IV diltiazem prehospital, and received an additional bolus of IV diltiazem while in the emergency room. Initial EKG revealed atrial fibrillation with left bundle branch block, and rate of 128 bpm. I reviewed this EKG on paper copy on her paper chart, as it is not available in the electronic record for review. Upon my assessment at the bedside and review of telemetry, it appears the patient had reverted to sinus rhythm after arrival to the telemetry floor. An EKG was therefore repeated per my request today 08/04/2017 at 1702 revealed sinus rhythm at 93 bpm with occasional PACs. In addition to IV diltiazem, the patient received 40 mg of IV furosemide. Echocardiogram was performed with multiple abnormalities as noted below. During my assessment, the patient was perfectly comfortable. She was enjoying her evening meal, she was joking, and asking when she could go home. Her family tells me that this is the first time she has been in the hospital since she had her children. 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 She does follow with a radio dispatcher. She is not aware of having a past heart murmur or valvular heart disease, and does not recall being told that she had atrial fibrillation in the past. Allergies Allergy/AdvReac Type Severity Reaction Status Date / Time No Known Allergies Allergy Unverified 08/04/18 09:22 Home Medications Home Medications Medication Instructions Recorded Confirmed Type aspirin 81 mg PO QAM 08/04/18 08/04/18 History bumetanide 1 mg PO Q2D 08/04/18 08/04/18 History cholecalciferol (vitamin D3) 5,000 unit PO QAM 08/04/18 08/04/18 History [Vitamin D3] clonidine HCl 0.3 mg PO BIDM 08/04/18 08/04/18 History doxazosin 4 mg PO QAM 08/04/18 08/04/18 History fluticasone propion-salmeterol 1 puff INHALATION BID 08/04/18 08/04/18 History [Advair Diskus] glimepiride 3 mg PO QAM 08/04/18 08/04/18 History losartan 100 mg PO PM 08/04/18 08/04/18 History simvastatin 40 mg PO PM 08/04/18 08/04/18 History sitagliptin [Januvia] 25 mg PO PM 08/04/18 08/04/18 History Patient History Medical History Chronic kidney disease (Chronic) History of hysterectomy (Chronic) Lower extremity edema (Chronic) HTN (hypertension) (Chronic) COPD (chronic obstructive pulmonary disease) (Chronic) Diabetes (Chronic) Family History Father Emphysema lung Mother Stroke Social History Communication Ability: Effective Beliefs That Will Affect Care: None marital status: / Current Living Situation: Alone current occupational status: retired Other Information That Helps Us Care for You: No Feels Safe at Home: Yes Safety Concerns: Feels Safe At This Time Smoking Status: Never smoker Hx Alcohol Use: No Hx Substance Use: No Review of Systems Review of Systems: All systems reviewed & are unremarkable except as noted in HPI & below Physical Exam Physical Exam: General: no acute distress and stated age, frail Eyes: conjunctiva are pink and non-injected, sclera clear Neck: normal jugular venous pulse, no hepatojugular reflux Chest: normal shape and normal respiratory effort Lungs: Decreased breath sounds bilaterally at the bases Cardiac Exam: - regular heart sounds, II/ systolic murmur heard best at the left axilla Abdomen: abdomen soft, non-tender, no abnormal masses and no hepatosplenomegaly Extremities: 1-2+ lower extremity edema, patient states that she has chronic lower extremity edema but it is a bit worse than usual Neuro:awake, coversant, follows commands, no focal motor deficits Results & Data Vital Signs (Past 12 Hours) Vital Signs Temp Pulse Pulse Resp BP BP BP 08/04/18 16:00 36.9 C 100 H 20 163/78 H 08/04/18 14:08 100 H 18 08/04/18 12:16 36.5 C 20 163/80 H 08/04/18 12:15 36.5 C 08/04/18 11:30 107 H 23 162/81 H 08/04/18 11:03 83 24 08/04/18 11:00 91 H 21 166/77 H 08/04/18 10:33 168/75 H 08/04/18 10:30 96 H 21 08/04/18 10:00 96 H 20 160/89 H 08/04/18 09:55 120 H 22 08/04/18 09:54 100 H 22 168/77 H 08/04/18 09:32 100 H 23 08/04/18 09:31 105 H 20 151/95 H 08/04/18 09:30 103 H 24 08/04/18 09:08 103 H 30 H 08/04/18 09:02 109 H 29 H 08/04/18 09:01 112 H 33 H 171/104 H 08/04/18 09:00 111 H 31 H 08/04/18 08:57 128 H 30 H 193/110 H 08/04/18 08:51 119 H 32 H 183/87 H 08/04/18 08:38 127 H 36 H 193/110 H 08/04/18 08:37 127 H 32 H 08/04/18 08:35 126 H 33 H Pulse Ox 08/04/18 16:00 95 08/04/18 14:08 92 08/04/18 12:16 97 08/04/18 12:15 08/04/18 11:30 97 08/04/18 11:03 98 08/04/18 11:00 99 08/04/18 10:33 08/04/18 10:30 96 08/04/18 10:00 96 08/04/18 09:55 78 L 08/04/18 09:54 93 08/04/18 09:32 95 08/04/18 09:31 93 08/04/18 09:30 91 08/04/18 09:08 94 08/04/18 09:02 94 08/04/18 09:01 93 08/04/18 09:00 93 08/04/18 08:57 94 08/04/18 08:51 92 08/04/18 08:38 98 08/04/18 08:37 100 08/04/18 08:35 97 Laboratory Results Cardiac Enzymes 08/04/18 08/04/18 Range/Units 08:42 16:16 AST 22 (15-37) U/L Troponin I 0.094 H* 1.720 H* (0-0.045) ng/ml Coagulation 08/04/18 Range/Units 08:42 PT 10.9 (9.0-12.0) Seconds APTT 23.3 (21.0-31.0) Seconds CBC 08/04/18 Range/Units 08:42 WBC 17.19 H (4.8-10.8) K/uL RBC 3.40 L (4.2-5.4) M/uL Hgb 9.4 L (12.0-16.0) g/dL Hct 30.1 L (37-47) % Plt Count 283 (130-400) K/uL Neut # (Auto) 14.13 H (1.4-6.5) K/uL Lymph # (Auto) 2.07 (1.2-3.4) K/uL [place] # (Auto) 0.83 H (0.11-0.59) K/uL Eos # (Auto) 0.07 (0-0.5) K/uL Baso # (Auto) 0.02 (0-0.2) K/uL Comprehensive Metabolic Panel 08/04/18 Range/Units 08:42 Sodium 140 (136-145) mmol/L Potassium 4.6 (3.5-5.1) mmol/L Chloride 107 (98-107) mmol/L Carbon Dioxide 22 (21-32) mmol/L BUN 55 H (7-18) mg/dl Creatinine 2.66 H (0.6-1.2) mg/dl Glucose 205 H (70-99) mg/dl Calcium 8.9 (8.5-10.1) mg/dl AST 22 (15-37) U/L ALT 20 (12-78) U/L Alkaline Phosphatase 75 (45-117) U/L Total Protein 6.5 (6.4-8.2) gm/dl Albumin 2.9 L (3.4-5.0) gm/dl Intake and Output 08/04/18 08/04/18 08/04/18 06:59 14:59 22:59 Intake Total 46.9 / 96.9 50 / 96.9 Balance 46.9 / 96.9 50 / 96.9 Intake: IV 46.9 / 96.9 50 / 96.9 HEPARIN SODIUM/DEXTROSE 25,000 46.9 / 46.9 units In 500 ml @ 1,050 UNITS/ HR 21 mls/hr IV .[id number] [facility] Rx #:[id number] Rocephin 1,000 mg In D5w 50 ml 50 / 50 @ 100 mls/hr IV Q24H [facility] Rx#: [id number] Other: Weight 68.8 kg Patient Weight 08/05/18 06:59 Weight 68.8 kg Diagnostic Findings EKG tracings as outlined in the history of present illness Summary of transthoracic echocardiogram performed today 08/04/2018 reviewed independently by the undersigned: Sinus rhythm was present during the echocardiogram. There is moderate concentric left ventricular hypertrophy. Septal motion is consistent with conduction abnormality. Otherwise, mild to moderate global hypokinesis is present, although there is does appear to be some degree of regional wall motion abnormality with focal akinesis of the basal inferior wall, consistent with suspected underlying coronary heart disease. Left ventricular systolic function is moderately reduced. The LV Ejection Fraction = 30-35%. The left atrium is severely dilated. Aortic valve sclerosis moderate, without significant aortic valvular stenosis. There is severe mitral annular calcification. There is moderate to severe tricuspid regurgitation. Severe pulmonary hypertension is present. The pulmonary artery systolic pressure is estimated to be 70 mmHg. Medications Administered Current Inpatient Medications Acetaminophen (Tylenol) 650 mg PO Q4H PRN PRN Reason: Pain or Fever Stop: 09/03/18 12:14 Amiodarone HCl (Cordarone) 200 mg PO BID [facility] Stop: 09/03/18 20:59 Aspirin (Ecotrin Ectab) 81 mg PO QAM [facility] Stop: 09/04/18 08:59 Clonidine HCl (Catapress) 0.3 mg PO BIDM [facility] Stop: 09/03/18 16:59 Last Admin: 08/04/18 17:29 Dose: 0.3 mg Documented by: Dextrose (Dextrose 50%) 25 - 50 ml IV UD PRN; Protocol PRN Reason: Hypoglycemia Protocol Stop: 09/03/18 12:17 Doxazosin Mesylate (Cardura) 4 mg PO QDB [facility] Stop: 09/04/18 07:29 Doxycycline Hyclate (Vibramycin) 100 mg PO BID [facility]; Protocol Stop: 08/11/18 20:59 Glucagon (Glucagen) 1 mg SQ UD PRN; Protocol PRN Reason: Hypoglycemia Protocol Stop: 09/03/18 12:17 Glucose (Dex4 Glucose) 4 - 8 tabs PO UD PRN; Protocol PRN Reason: Hypoglycemia Protocol Stop: 09/03/18 12:17 Glucose (Glucose 40%) 15 - 30 gm PO UD PRN; Protocol PRN Reason: Hypoglycemia Protocol Stop: 09/03/18 12:17 Ceftriaxone Sodium 1,000 mg/ (Dextrose) 50 mls @ 100 mls/hr IV Q24H [facility]; Protocol Stop: 08/09/18 13:59 Last Infusion: 08/04/18 15:36 Dose: Infused Documented by: Heparin Sodium/Dextrose (Heparin Sodium/Dextrose) 25,000 units in 500 mls @ 21 mls/hr IV .[id number] [facility]; Protocol Stop: 09/03/18 12:44 Last Titration: 08/04/18 14:55 Dose: 1,050 units/hr, 21 mls/hr Documented by: Insulin Aspart (Novolog Flexpen) 0 units SC ACHS [facility] Stop: 09/03/18 16:29 Last Admin: 08/04/18 17:28 Dose: 6 units Documented by: Ipratropium [place] (Atrovent 0.02% 0.5mg/2.5ml) 0.5 mg INH Q6R [facility] Stop: 09/03/18 13:59 Last Admin: 08/04/18 14:08 Dose: 0.5 mg Documented by: Levalbuterol HCl (Xopenex 1.25mg/0.5ml Neb) 1.25 mg INH Q6R [facility] Stop: 09/03/18 13:59 Last Admin: 08/04/18 14:08 Dose: 1.25 mg Documented by: Metoprolol Tartrate (Lopressor) 12.5 mg PO Q6H [facility] Stop: 09/03/18 13:59 Last Admin: 08/04/18 14:55 Dose: 12.5 mg Documented by: Miscellaneous (Carbohydrates For Hypoglycemia) 15 - 30 gm PO UD PRN PRN Reason: Hypoglycemia Treatment Stop: 09/03/18 12:17 Fluticasone/Salmeterol (Advair Diskus 100/50) 1 puffs INH BID [facility] Stop: 09/03/18 20:59 Simvastatin (Zocor) 10 mg PO PM [facility] Stop: 09/03/18 20:59 Vitamin D (Vitamin D3) 5,000 units PO QDB [facility] Stop: 09/04/18 07:29 Warfarin Sodium (Coumadin) 2.5 mg PO ONE ONE Stop: 08/05/18 17:48
[2018-08-04] MEDS ORDERED: WARFARIN SOD 2.5 MG TAB PO ONE (18:30)
[2018-08-04 19:06] LABS: Partial Thromboplastin Ratio 4.9
[2018-08-04 19:25] LABS: Partial Thromboplastin Time 131.8 Seconds (21.0-31.0)
[2018-08-04] MEDS: FLUTICASONE/SALMETEROL 100/50 (ADVAIR) 14 PUFF/1 INHALER INH SCH (19:56)
[2018-08-04] MEDS: DOXYCYCLINE HYCLATE 100 MG CAP PO SCH (19:57)
[2018-08-04] MEDS: SIMVASTATIN 10 MG TAB PO SCH (19:58)
[2018-08-04] MEDS: AMIODARONE 200 MG TAB PO SCH (19:59)
[2018-08-04] MEDS ORDERED: SIMVASTATIN 40 MG TAB PO SCH (21:00)
[2018-08-04 21:30] LABS: Partial Thromboplastin Ratio 2.6
[2018-08-04 21:39] LABS: Partial Thromboplastin Time 71.8 Seconds (21.0-31.0)
[2018-08-05] MEDS: IPRATROPIUM BROMIDE NEB SOLN 0.02% 2.5 ML VIAL INH SCH ×5 (01:53→23:07)
[2018-08-05] MEDS: LEVALBUTEROL 1.25MG/0.5ML NEB INH SCH ×5 (01:54→23:07)
[2018-08-05 04:11] LABS: Hematocrit (blood only) 27.8 % (37-47); Hemoglobin 8.9 g/dL (12.0-16.0); Mean Corpuscular Volume 86.1 fL (80-100); Platelet Count 254 K/uL (130-400); RDW Coefficient of Variation 15.6 % (11.5-14.5); RDW Standard Deviation 49.3 fL (36.4-46.3); Red Blood Count 3.23 M/uL (4.2-5.4); White Blood Count 8.24 K/uL (4.8-10.8)
[2018-08-05 04:32] LABS: BUN Creatinine Ratio 21.9 (10-20); Calcium 8.4 mg/dl (8.5-10.1); Creatinine Clr Calc Pharmacy 13.9 ml/min; Est GFR (African American) 18.2; Est GFR (Non-African American) 15.7; Magnesium 1.9 mg/dl (1.8-2.4); Partial Thromboplastin Ratio 3.6; Potassium 4.1 mmol/L (3.5-5.1)
[2018-08-05 04:49] LABS: Partial Thromboplastin Time 97.7 Seconds (21.0-31.0)
[2018-08-05] MEDS: METOPROLOL TARTRATE 25 MG TAB PO SCH ×3 (05:12→19:44)
[2018-08-05] MEDS ORDERED: PROMETHAZINE HCL 12.5 MG in SODIUM CHLORIDE 0.9% 50 ML IV STA ×2 (07:51→11:06)
[2018-08-05] MEDS ORDERED: LEVALBUTEROL HCL 0.63 MG/3 ML NEB NEB STA (07:56)
[2018-08-05] MEDS ORDERED: FUROSEMIDE 20 MG in SYRINGE 0 ML IV ONE (08:10)
[2018-08-05] MEDS ORDERED: METOPROLOL TARTRATE 1 MG/ML VIAL IV STA (08:11)
[2018-08-05] MEDS ORDERED: methylPREDNISolone 40 MG in SYRINGE 0 ML IV STA (08:12)
[2018-08-05] MEDS ORDERED: methylPREDNISolone 40 MG in SYRINGE 0 ML IV SCH (08:15)
--- NOTE | 2018-08-05 08:29 | Hospitalist Progress Note ---
Date of Service August 05, 2018 Assessment & Plan (1) Acute respiratory failure: ACUTE HYPOXIC RESPIRATORY FAILURE secondary to: ACUTE SYSTOLIC, VALVULAR CHF echo: noted repeat CXR: CHF pattern, possible r pneumonia additional Lasix 20mg IV given Lopressor 5mg IV given for HTN COPD EXACERBATION UNDERLYING RIGHT SIDED PNEUMONIA? ABG Solumedrol 40mg IV one dose STAT nebs continue Ceftri, Doxy, Nebs (2) Atrial fibrillation, rapid: -[id number] score 5 (HTN, age, DM, female; score possibly 6 with CHF, echo pending) - on Amidiodarione PO, Metoprolol 12.5 q6h now in Sinus tach - Heparin drip (3) Elevated troponin: peaked to 4 EKG this AM non specific t wave depression lateral lead patient denies chest pain on Heparin drip (4) Possible urinary tract infection: -UA suggest possible UTI, on ceftriaxone as above -Follow culture (5) Chronic kidney disease: baseline crea 2.4 as per patient's daughter -Creatinine 2.6 today, continue to monitor (6) HTN (hypertension): -BP elevated on arrival, improved after IV diltiazem\\ - on Metoprolol PO q6h -Continue home doses of clonidine and doxazosin, will hold losartan for now in light of unknown baseline creatinine and diuresis (7) Diabetes: -Hgb A1c unknown, will check -Hold oral agents and utilize NovoLog per protocol while hospitalized (8) DVT prophylaxis: -On IV heparin Subjective ff up for CHF exacerbation called by RN for patient's elevated BP systolic 190s, and shortness of breath seen sitting up in bed, tachypneic, speaks in sentences with mild accessory muscle use states she felt short of breath, right after she received a "shot" this morning- apparently this was bloodwork denies chest pain, dizziness, (+) Nausea denies cough, sputum, fever/chills no other symptoms Review of Systems Review of Systems: All systems reviewed & are unremarkable except as noted in HPI & below Physical Exam Physical Exam: General- oriented x 2, tachypneic, speaks in sentences with mild effort, mild acc muscle use Eyes- anicteric Neck- (+) JVD Lungs- (+) rales bilateral mid-base no wheeze Heart- tachycardic, regular rhythm; no murmurs Abdomen- normal bowel sounds, nondistended, soft, nontender Extremities- grade 1 lower leg edema, no calf tenderness Neuro- alert, oriented x 2; no gross focal neurologic deficits Skin- warm & dry Results & Data Vital Signs (Past 12 Hours) Vital Signs Temp Pulse Pulse Resp BP BP Pulse Ox 08/05/18 08:06 105 H 20 95 08/05/18 07:38 190/99 H 08/05/18 07:26 100 H 18 94 08/05/18 07:11 37 C 110 H 22 188/104 H 94 08/05/18 03:38 37 C 96 H 20 172/78 H 96 08/05/18 01:54 83 16 97 08/04/18 23:04 36.8 C 77 18 141/75 H 100 08/04/18 23:03 77 Laboratory Results Laboratory Results - last 24 hr 08/04/18 08/04/18 08/04/18 08:42 08:42 08:42 WBC 17.19 H RBC 3.40 L Hgb 9.4 L Hct 30.1 L MCV 88.5 MCH 27.6 MCHC 31.2 L RDW Std Deviation 50.5 H RDW Coeff of Nba 15.6 H Plt Count 283 MPV 10.7 H Immature Gran % (Auto) 0.4 Neut % (Auto) 82.3 Lymph % (Auto) 12.0 Love % (Auto) 4.8 Eos % (Auto) 0.4 Baso % (Auto) 0.1 Immature Gran # (Auto) 0.07 H Neut # (Auto) 14.13 H Lymph # (Auto) 2.07 Love # (Auto) 0.83 H Eos # (Auto) 0.07 Baso # (Auto) 0.02 Echinocytes 1+ PT 10.9 INR 1.1 APTT 23.3 PTT Ratio 0.9 Sodium 140 Potassium 4.6 Chloride 107 Carbon Dioxide 22 Anion Gap 11.0 BUN 55 H Creatinine 2.66 H Est Cr Clr Drug Dosing 13.8 Est GFR ( Amer) 18.1 Est GFR (Non-Af Amer) 15.6 BUN/Creatinine Ratio 20.8 H Glucose 205 H POC Glucose Estimat Average Glucose Hemoglobin A1c Lactate Calcium 8.9 Magnesium Total Bilirubin 0.4 AST 22 ALT 20 Alkaline Phosphatase 75 Troponin I 0.094 H* Total Protein 6.5 Albumin 2.9 L Globulin 3.6 Albumin/Globulin Ratio 0.8 L Procalcitonin Urine Color Urine Appearance Urine pH Ur Specific [place] Urine Protein Urine Glucose (UA) Urine Ketones Urine Blood Urine Nitrite Urine Bilirubin Urine Urobilinogen Ur Leukocyte Esterase Urine RBC Urine WBC Ur Epithelial Cells Amorphous Sediment Urine Bacteria 08/04/18 08/04/18 08/04/18 08:42 09:30 10:48 WBC RBC Hgb Hct MCV MCH MCHC RDW Std Deviation RDW Coeff of Nba Plt Count MPV Immature Gran % (Auto) Neut % (Auto) Lymph % (Auto) Love % (Auto) Eos % (Auto) Baso % (Auto) Immature Gran # (Auto) Neut # (Auto) Lymph # (Auto) Love # (Auto) Eos # (Auto) Baso # (Auto) Echinocytes PT INR APTT PTT Ratio Sodium Potassium Chloride Carbon Dioxide Anion Gap BUN Creatinine Est Cr Clr Drug Dosing Est GFR ( Amer) Est GFR (Non-Af Amer) BUN/Creatinine Ratio Glucose POC Glucose Estimat Average Glucose 177 Hemoglobin A1c 7.8 H Lactate 2.0 Calcium Magnesium Total Bilirubin AST ALT Alkaline Phosphatase Troponin I Total Protein Albumin Globulin Albumin/Globulin Ratio Procalcitonin Urine Color Yellow Urine Appearance Clear Urine pH 5.5 Ur Specific [place] 1.015 Urine Protein 2+ H Urine Glucose (UA) Negative Urine Ketones Negative Urine Blood Negative Urine Nitrite Negative Urine Bilirubin Negative Urine Urobilinogen Negative Ur Leukocyte Esterase Trace H Urine RBC 0-4 Urine WBC 10-30 H Ur Epithelial Cells 5-10 H Amorphous Sediment Present A Urine Bacteria 3+ H 08/04/18 08/04/18 08/04/18 10:48 16:16 16:36 WBC RBC Hgb Hct MCV MCH MCHC RDW Std Deviation RDW Coeff of Nba Plt Count MPV Immature Gran % (Auto) Neut % (Auto) Lymph % (Auto) Love % (Auto) Eos % (Auto) Baso % (Auto) Immature Gran # (Auto) Neut # (Auto) Lymph # (Auto) Love # (Auto) Eos # (Auto) Baso # (Auto) Echinocytes PT INR APTT PTT Ratio Sodium Potassium Chloride Carbon Dioxide Anion Gap BUN Creatinine Est Cr Clr Drug Dosing Est GFR ( Amer) Est GFR (Non-Af Amer) BUN/Creatinine Ratio Glucose POC Glucose 187 H Estimat Average Glucose Hemoglobin A1c Lactate Calcium Magnesium Total Bilirubin AST ALT Alkaline Phosphatase Troponin I 1.720 H* Total Protein Albumin Globulin Albumin/Globulin Ratio Procalcitonin 0.10 Urine Color Urine Appearance Urine pH Ur Specific [place] Urine Protein Urine Glucose (UA) Urine Ketones Urine Blood Urine Nitrite Urine Bilirubin Urine Urobilinogen Ur Leukocyte Esterase Urine RBC Urine WBC Ur Epithelial Cells Amorphous Sediment Urine Bacteria 08/04/18 08/04/18 08/04/18 17:51 20:47 20:53 WBC RBC Hgb Hct MCV MCH MCHC RDW Std Deviation RDW Coeff of Bna Plt Count MPV Immature Gran % (Auto) Neut % (Auto) Lymph % (Auto) Love % (Auto) Eos % (Auto) Baso % (Auto) Immature Gran # (Auto) Neut # (Auto) Lymph # (Auto) Love # (Auto) Eos # (Auto) Baso # (Auto) Echinocytes PT INR APTT 131.8 H* 71.8 H* PTT Ratio 4.9 2.6 Sodium Potassium Chloride Carbon Dioxide Anion Gap BUN Creatinine Est Cr Clr Drug Dosing Est GFR ( Amer) Est GFR (Non-Af Amer) BUN/Creatinine Ratio Glucose POC Glucose 132 H Estimat Average Glucose Hemoglobin A1c Lactate Calcium Magnesium Total Bilirubin AST ALT Alkaline Phosphatase Troponin I Total Protein Albumin Globulin Albumin/Globulin Ratio Procalcitonin Urine Color Urine Appearance Urine pH Ur Specific [place] Urine Protein Urine Glucose (UA) Urine Ketones Urine Blood Urine Nitrite Urine Bilirubin Urine Urobilinogen Ur Leukocyte Esterase Urine RBC Urine WBC Ur Epithelial Cells Amorphous Sediment Urine Bacteria 08/05/18 08/05/18 08/05/18 00:07 03:59 03:59 WBC 8.24 RBC 3.23 L Hgb 8.9 L Hct 27.8 L MCV 86.1 MCH 27.6 MCHC 32.0 RDW Std Deviation 49.3 H RDW Coeff of Nba 15.6 H Plt Count 254 MPV 10.0 Immature Gran % (Auto) Neut % (Auto) Lymph % (Auto) Love % (Auto) Eos % (Auto) Baso % (Auto) Immature Gran # (Auto) Neut # (Auto) Lymph # (Auto) [place] # (Auto) Eos # (Auto) Baso # (Auto) Echinocytes PT INR APTT PTT Ratio Sodium 139 Potassium 4.1 Chloride 107 Carbon Dioxide 24 Anion Gap 8.0 BUN 58 H Creatinine 2.65 H Est Cr Clr Drug Dosing 13.9 Est GFR ( Amer) 18.2 Est GFR (Non-Af Amer) 15.7 BUN/Creatinine Ratio 21.9 H Glucose 87 POC Glucose Estimat Average Glucose Hemoglobin A1c Lactate Calcium 8.4 L Magnesium 1.9 Total Bilirubin AST ALT Alkaline Phosphatase Troponin I 4.460 H* Total Protein Albumin Globulin Albumin/Globulin Ratio Procalcitonin Urine Color Urine Appearance Urine pH Ur Specific [place] Urine Protein Urine Glucose (UA) Urine Ketones Urine Blood Urine Nitrite Urine Bilirubin Urine Urobilinogen Ur Leukocyte Esterase Urine RBC Urine WBC Ur Epithelial Cells Amorphous Sediment Urine Bacteria 08/05/18 08/05/18 08/05/18 03:59 07:13 07:58 WBC RBC Hgb Hct MCV MCH MCHC RDW Std Deviation RDW Coeff of Nba Plt Count MPV Immature Gran % (Auto) Neut % (Auto) Lymph % (Auto) Love % (Auto) Eos % (Auto) Baso % (Auto) Immature Gran # (Auto) Neut # (Auto) Lymph # (Auto) [place] # (Auto) Eos # (Auto) Baso # (Auto) Echinocytes PT INR APTT 97.7 H* PTT Ratio 3.6 Sodium Potassium Chloride Carbon Dioxide Anion Gap BUN Creatinine Est Cr Clr Drug Dosing Est GFR ( Amer) Est GFR (Non-Af Amer) BUN/Creatinine Ratio Glucose POC Glucose 87 Estimat Average Glucose Hemoglobin A1c Lactate Calcium Magnesium Total Bilirubin AST ALT Alkaline Phosphatase Troponin I Pending Total Protein Albumin Globulin Albumin/Globulin Ratio Procalcitonin Urine Color Urine Appearance Urine pH Ur Specific [place] Urine Protein Urine Glucose (UA) Urine Ketones Urine Blood Urine Nitrite Urine Bilirubin Urine Urobilinogen Ur Leukocyte Esterase Urine RBC Urine WBC Ur Epithelial Cells Amorphous Sediment Urine Bacteria
--- NOTE | 2018-08-05 08:31 | XRay Report ---
XR chest 1V portable HISTORY: 88 years-old Female shortness of breath acute shortness of breath COMPARISON: Chest radiograph and chest CT 08/04/2018 TECHNIQUE: Portable AP view of the chest. FINDINGS: Cardiac silhouette is enlarged, unchanged. Calcification of the thoracic aortic arch. Unchanged small bilateral pleural effusions. No pneumothorax. Bilateral reticular opacities with right perihilar and bibasilar alveolar densities are redemonstrated. Degenerative changes of the shoulders and spine. IMPRESSION: 1. Cardiomegaly with persistent pulmonary edema. 2. Unchanged bilateral pleural effusions with bibasilar opacities suggestive of atelectasis or pneumo nitis. The above report was generated using voice recognition software. It may contain grammatical, syntax o r spelling errors. Electronically signed by: Andreas Blanchard M.D. 08/05/2018 8:30 AM
[2018-08-05 09:01] LABS: HCO3 ABG 21 mmol/L (19-24); Oxygen Saturation ABG 93.4 % (90-95); PCO2 ABG 30 mmHg (35-46); PO2 ABG 74 mm/Hg (80-95); pH ABG 7.45 (7.35-7.45)
[2018-08-05 09:02] LABS: Allen Test Pos (Pos)
[2018-08-05] MEDS: ASPIRIN 81 MG ECTAB PO SCH (09:50)
[2018-08-05] MEDS: DOXAZosin MESYLATE 4 MG TAB PO SCH (09:50)
[2018-08-05] MEDS: AMIODARONE 200 MG TAB PO SCH ×2 (09:51→17:15)
[2018-08-05] MEDS: CHOLECALCIFEROL 1,000 UNITS TAB PO SCH (09:51)
[2018-08-05] MEDS: DOXYCYCLINE HYCLATE 100 MG CAP PO SCH ×2 (09:52→19:44)
[2018-08-05] MEDS: FLUTICASONE/SALMETEROL 100/50 (ADVAIR) 14 PUFF/1 INHALER INH SCH ×2 (09:52→19:43)
[2018-08-05] MEDS: INSULIN ASPART 100 UNITS/ML 3 ML PEN SC SCH ×4 (09:53→21:00)
--- NOTE | 2018-08-05 12:14 | XRay Report ---
KUB HISTORY: Acute generalized abdominal pain r/o ileus, obstruction COMPARISON: Chest radiograph of same day, chest CT 08/04/2018 FINDINGS: Cardiomegaly with bilateral pleural effusions and bibasilar opacities. Moderate to marked v olume of formed stool throughout the colon with 7.7 cm stool ball the rectum. Mild gaseous distention of colon within the central abdomen. No definite associated bowel obstruction, pneumatosis or pneumo peritoneum. No urolith identified. Hiatal hernia redemonstrated. Severe degenerative changes of the s pine, pelvis and hips. Convex right curvature of the thoracolumbar junction. IMPRESSION: 1. Moderate to severe constipation. 2. Mild gaseous distention of bowel within the central abdomen without obstructive process identified . 3. No pneumatosis or pneumoperitoneum. 4. Cardiomegaly with bilateral pleural effusions and bibasilar opacities. Electronically signed by: Andreas Blanchard M.D. 08/05/2018 12:13 PM
--- NOTE | 2018-08-05 12:36 | Cardiology Progress Note ---
Date of Service August 05, 2018 Assessment & Plan (1) NSTEMI (non-ST elevated myocardial infarction): (2) Acute HFrEF (heart failure with reduced ejection fraction): (3) LBBB (left bundle branch block): (4) Mitral regurgitation: (5) Tricuspid regurgitation: (6) Pulmonary hypertension: Troponin peaked at 4.4 performed at midnight last night, trended down to 2.56 this morning. No symptoms suggestive of angina at present. Her nauseousness may very well be due to amiodarone as this is a known side effect of oral amiodarone and I am going to change the order so that this is administered with meals to prevent ongoing nauseousness. Her presenting symptom was shortness of breath and respiratory distress, not GI distress, so I am not convinced that this is an anginal equivalent at present. Her elevated troponin must be interpreted with taking her kidney function into account. Her creatinine is 2.6. She has known chronic kidney disease and apparently follows with a internet designer in [place], but we do not know what her baseline creatinine is. She has received IV furosemide 40 mg yesterday and another dose of 20 today, and I think conservative ongoing furosemide treatment is reasonable. We will reassess her kidney function tomorrow prior to re- dosing. The patient's other daughter who typically takes her to her medical appointments did communicate by phone to Jeanne who is accompanying her here that the patient had a test for "heart function "about a year ago, this was likely a heart echo. It is difficult to determine the acuity versus chronicity of her findings of left bundle branch block, LV systolic dysfunction, mitral regurgitation and tricuspid regurgitation. It does appear that perhaps the atrial fibrillation was acute, as she has had interval symptomatic improvement. I discussed with patient family that we need to proceed cautiously with AV kelly jael such as metoprolol and amiodarone in order to hopefully maintain sinus rhythm, but also she is of course at risk for needing a pacemaker given her age and underlying conduction system disease. Recommend heparin due to her elevated troponin as well as for stroke prophylaxis for atrial fibrillation. [id number] score is 6 given her age of over 77, female sex, left ventricular systolic dysfunction, hypertension, and diabetes, predicting high risk for cardioembolic stroke and therefore even though her episode of atrial fibrillation was brief, I believe anticoagulation for stroke prophylaxis is indicated. Given code ministration of amiodarone, will proceed with cautious Coumadin loading, receiving 2.5 mg yesterday, and will start 4 mg daily today. Her hemoglobin is 8.9. This will need to be monitored. I had intended for the patient have a TSH with her morning labs this morning, but I had time to send appropriately for tonight. We will therefore reorder for tomorrow morning and canceled the current order. Subjective Chief complaint: Follow-up shortness of breath Subjective: Patient seen and examined. She was resting comfortably. Her daughter, Jeanne was accompanying her at the bedside. Patient apparently reported nauseousness earlier today and therefore she is n.p.o., and recently had an x-ray performed. She received a dose of furosemide 20 mg IV as well as IV metoprolol for blood pressure today. EKG this morning revealed ongoing sinus tachycardia 107 bpm with left bundle branch block. No evidence of atrial fi brillation on telemetry overnight. Physical Exam Physical Exam: General: no acute distress and stated age Eyes: conjunctiva are pink and non-injected, sclera clear Neck: normal jugular venous pulse, no hepatojugular reflux, frail, conversant Chest: normal shape and normal respiratory effort Lungs: Mildly decreased breath sounds at the bases Cardiac Exam: -Elevated heart rate, 2/6 systolic murmur Abdomen: abdomen soft, non-tender, no abnormal masses and no hepatosplenomegaly Extremities: no edema and no cyanosis Neuro:awake, coversant, follows commands, no focal motor deficits Psych: appropriate affect and insight. Results & Data Vital Signs (Past 12 Hours) Vital Signs Temp Pulse Pulse Resp BP BP BP 08/05/18 09:56 93 H 162/85 H 08/05/18 08:23 110 H 190/99 H 08/05/18 08:06 105 H 20 08/05/18 08:00 101 H 08/05/18 07:38 190/99 H 08/05/18 07:26 100 H 18 08/05/18 07:11 37 C 110 H 22 188/104 H 08/05/18 03:38 37 C 96 H 20 172/78 H 08/05/18 01:54 83 16 Pulse Ox 08/05/18 09:56 08/05/18 08:23 08/05/18 08:06 95 08/05/18 08:00 08/05/18 07:38 08/05/18 07:26 94 08/05/18 07:11 94 08/05/18 03:38 96 08/05/18 01:54 97
[2018-08-05] MEDS ORDERED: POLYETHYLENE (MIRALAX) 17 GM PACK PO PRN (12:53)
[2018-08-05] MEDS ORDERED: BISACODYL 10 MG SUPP PR PRN (13:19)
[2018-08-05 13:28] LABS: Partial Thromboplastin Ratio 2.1
[2018-08-05 13:30] LABS: Partial Thromboplastin Time 56.7 Seconds (21.0-31.0)
[2018-08-05] MEDS: cefTRIAXone SODIUM 1,000 MG in DEXTROSE 5% 50 ML IV SCH (15:13)
[2018-08-05] MEDS: DOCUSATE SODIUM/SENNA 50/8.6MG TAB PO SCH (15:13)
[2018-08-05 17:06] LABS: INR 1.1 (0.9-1.1); Prothrombin Time 11.4 Seconds (9.0-12.0)
[2018-08-05] MEDS: Heparin Adult STANDARD Wt-Based Dextrose 5% 25,000 units/500 mL IV SCH (17:11)
[2018-08-05] MEDS: WARFARIN SOD 4 MG TAB PO SCH (17:12)
[2018-08-05] MEDS: SIMVASTATIN 10 MG TAB PO SCH (19:45)
[2018-08-06] MEDS: METOPROLOL TARTRATE 25 MG TAB PO SCH ×5 (00:14→23:56)
[2018-08-06 05:56] LABS: Hematocrit (blood only) 25.2 % (37-47); Hemoglobin 8.2 g/dL (12.0-16.0); Mean Corpuscular Hgb Conc 32.5 g/dL (32-36); Mean Corpuscular Volume 86.9 fL (80-100); Mean Platelet Volume 10.6 fL (7.4-10.4); Platelet Count 212 K/uL (130-400); RDW Coefficient of Variation 15.8 % (11.5-14.5); RDW Standard Deviation 50.5 fL (36.4-46.3); White Blood Count 7.42 K/uL (4.8-10.8)
[2018-08-06 06:32] LABS: Calcium 8.5 mg/dl (8.5-10.1); Creatinine Clr Calc Pharmacy 13.3 ml/min; Est GFR (African American) 17.5; Est GFR (Non-African American) 15.1; Potassium 4.9 mmol/L (3.5-5.1)
[2018-08-06 06:36] LABS: INR 1.4 (0.9-1.1); Partial Thromboplastin Ratio 3.4; Prothrombin Time 14.2 Seconds (9.0-12.0)
[2018-08-06 06:47] LABS: Partial Thromboplastin Time 91.1 Seconds (21.0-31.0)
[2018-08-06] MEDS: LEVALBUTEROL 1.25MG/0.5ML NEB INH SCH ×2 (07:12→14:23)
[2018-08-06] MEDS: IPRATROPIUM BROMIDE NEB SOLN 0.02% 2.5 ML VIAL INH SCH ×2 (07:12→14:23)
[2018-08-06] MEDS: AMIODARONE 200 MG TAB PO SCH ×2 (07:33→17:41)
[2018-08-06] MEDS: DOXYCYCLINE HYCLATE 100 MG CAP PO SCH ×2 (07:41→20:14)
[2018-08-06] MEDS: DOCUSATE SODIUM/SENNA 50/8.6MG TAB PO SCH (07:41)
[2018-08-06] MEDS: CHOLECALCIFEROL 1,000 UNITS TAB PO SCH (07:42)
[2018-08-06] MEDS: DOXAZosin MESYLATE 4 MG TAB PO SCH (07:42)
[2018-08-06] MEDS: ASPIRIN 81 MG ECTAB PO SCH (07:43)
[2018-08-06] MEDS: FLUTICASONE/SALMETEROL 100/50 (ADVAIR) 14 PUFF/1 INHALER INH SCH ×2 (07:43→20:15)
[2018-08-06] MEDS: INSULIN ASPART 100 UNITS/ML 3 ML PEN SC SCH ×4 (07:44→21:31)
--- NOTE | 2018-08-06 09:41 | Hospitalist Progress Note ---
Date of Service August 06, 2018 Assessment & Plan (1) Acute respiratory failure: ACUTE HYPOXIC RESPIRATORY FAILURE secondary to: ACUTE SYSTOLIC, VALVULAR CHF echo: noted repeat CXR: CHF pattern, possible r pneumonia 08/06/2018 Patient's respiratory status improved today Weaned off oxygen supplementation Lasix 60 mg 1 dose ordered for today Metoprolol every [address] Phan's recommendations Possible component of mild COPD EXACERBATION UNDERLYING RIGHT SIDED PNEUMONIA? Also improving Afebrile, leukocytosis resolved continue Ceftri, Doxy, Nebs Monitor closely (2) Atrial fibrillation, rapid: -[id number] score 5 (HTN, age, DM, female; score possibly 6 with CHF, echo pending) - on amiodarone PO, Metoprolol 12.5 q6h now in Sinus tach -Heparin drip discontinued, Coumadin resumed Monitor INR daily next (3) Elevated troponin: peaked to 4, trended down EKG non specific t wave depression lateral lead patient denies chest pain (4) Possible urinary tract infection: Urine cultures negative (5) Chronic kidney disease: baseline crea 2.4 as per patient's daughter 2.7 today Called patient's primary care physician margarine churn operator, records requested (6) HTN (hypertension): -BP elevated on arrival, improved after IV diltiazem\ - on Metoprolol PO q6h -Continue home doses of clonidine and doxazosin, will hold losartan for now in light of unknown baseline creatinine and diuresis Improving (7) Diabetes: -A1c 7.8 -Hold oral agents and utilize NovoLog per protocol while hospitalized (8) DVT prophylaxis: -On Coumadin Subjective Follow-up for acute CHF exacerbation Seen sitting up in bed, comfortable, in good spirits Oriented x3, answers all questions appropriately States she feels improved overall today compared to yesterday Breathing has improved, no cough, no fever or chills Denies chest pain, palpitations, dizziness Nausea resolved, positive BM yesterday Denies other symptoms Review of Systems Review of Systems: All systems reviewed & are unremarkable except as noted in HPI & below Physical Exam Physical Exam: General- oriented x 3, not in distress, speaks in sentences with no effort or accessory muscle use Eyes- anicteric Neck- no JVD Lungs-very faint rales bilateral bases, no wheezing, good air entry bilaterally Heart- normal rate, regular rhythm; no murmurs Abdomen- normal bowel sounds, nondistended, soft, nontender Extremities-mild lower leg edema, no calf tenderness Neuro- alert, oriented x 3; no gross focal neurologic deficits Skin- warm & dry Results & Data Vital Signs (Past 12 Hours) Vital Signs Temp Pulse Pulse Resp BP Pulse Ox 08/06/18 07:26 36.7 C 77 19 156/91 H 99 08/06/18 07:12 74 18 97 08/06/18 03:26 36.8 C 70 18 138/67 97 08/05/18 23:50 67 08/05/18 23:48 37.2 C 71 17 154/82 H 99 08/05/18 23:07 78 18 95 Laboratory Results Laboratory Results - last 24 hr 08/05/18 08/05/18 08/05/18 12:44 16:35 20:28 WBC RBC Hgb Hct MCV MCH MCHC RDW Std Deviation RDW Coeff of Nba Plt Count MPV PT 11.4 INR 1.1 APTT PTT Ratio Sodium Potassium Chloride Carbon Dioxide Anion Gap BUN Creatinine Est Cr Clr Drug Dosing Est GFR ( Amer) Est GFR (Non-Af Amer) BUN/Creatinine Ratio Glucose POC Glucose 275 H 270 H Calcium TSH 08/06/18 08/06/18 08/06/18 05:31 05:31 05:31 WBC 7.42 RBC 2.90 L Hgb 8.2 L Hct 25.2 L MCV 86.9 MCH 28.3 MCHC 32.5 RDW Std Deviation 50.5 H RDW Coeff of Nba 15.8 H Plt Count 212 MPV 10.6 H PT 14.2 H INR 1.4 H APTT 91.1 H* PTT Ratio 3.4 Sodium 138 Potassium 4.9 D Chloride 105 Carbon Dioxide 25 Anion Gap 8.0 BUN 63 H Creatinine 2.74 H Est Cr Clr Drug Dosing 13.3 Est GFR ( Amer) 17.5 Est GFR (Non-Af Amer) 15.1 BUN/Creatinine Ratio 23.0 H Glucose 211 H POC Glucose Calcium 8.5 TSH 0.469 08/06/18 08/06/18 08/06/18 07:25 11:02 13:59 WBC RBC Hgb Hct MCV MCH MCHC RDW Std Deviation RDW Coeff of Nba Plt Count MPV PT INR APTT Pending PTT Ratio Pending Sodium Potassium Chloride Carbon Dioxide Anion Gap BUN Creatinine Est Cr Clr Drug Dosing Est GFR ( Amer) Est GFR (Non-Af Amer) BUN/Creatinine Ratio Glucose POC Glucose 199 H 134 H Calcium TSH
--- NOTE | 2018-08-06 12:59 | Cardiology Progress Note ---
Date of Service August 06, 2018 Assessment & Plan (1) Acute HFrEF (heart failure with reduced ejection fraction): (2) LBBB (left bundle branch block): (3) Mitral regurgitation: (4) Tricuspid regurgitation: (5) Pulmonary hypertension: (6) NSTEMI (non-ST elevated myocardial infarction): Patient's hemoglobin is trended down from 9.4-8.2. She has no symptoms suggestive angina. I do not think her presentation is suggestive of an acute intracoronary thrombosis episode, and therefore I am going to discontinue unfractioned heparin, and continue Coumadin loading. INR is 1.4 today. We will continue with 4 mg of Coumadin. She is on antibiotics and amiodarone so anticipate her INR will become therapeutic quickly. Proceed with furosemide 60 mg x [address] Partida is working on communicating with her PCP and reed man to obtain outside records so we know her baseline creatinine. Subjective Chief complaint: Follow-up shortness of breath Subjective: Patient seen and examined. Her daughter Jeanne is at the bedside. Patient feels well. She has been up out of bed minimally to walk to the bathroom. Telemetry reveals stable sinus rhythm with left bundle branch block. Physical Exam Constitutional: no acute distress Respiratory: Auscultation: + diminished lung sounds (Mildly decreased breath sounds at the bases); no crackles, no rales and no rhonchi Cardiovascular: Rate/Rhythm: regular rate Heart Sounds: + murmur (2/6 systolic murmur heard best at left axilla) Extremities: + edema (Trace lower extremity edema) Neurologic: PERRL, EOMI, accommodation nl, no face palsy, no dysarthria moves all extremities; no focal motor deficits Results & Data Vital Signs (Past 12 Hours) Vital Signs Temp Pulse Pulse Resp BP Pulse Ox 08/06/18 12:31 95 08/06/18 10:55 36.3 C L 64 19 134/78 100 08/06/18 10:35 75 08/06/18 07:26 36.7 C 77 19 156/91 H 99 08/06/18 07:12 74 18 97 08/06/18 03:26 36.8 C 70 18 138/67 97
[2018-08-06] MEDS ORDERED: FUROSEMIDE 60 MG in SYRINGE 0 ML IV ONE (13:30)
[2018-08-06 14:37] LABS: Partial Thromboplastin Ratio 2.5
[2018-08-06 14:42] LABS: Partial Thromboplastin Time 67.3 Seconds (21.0-31.0)
[2018-08-06] MEDS: cefTRIAXone SODIUM 1,000 MG in DEXTROSE 5% 50 ML IV SCH (14:55)
[2018-08-06] MEDS: Heparin Adult STANDARD Wt-Based Dextrose 5% 25,000 units/500 mL IV SCH (15:20)
[2018-08-06] MEDS: WARFARIN SOD 4 MG TAB PO SCH (17:38)
[2018-08-06] MEDS: SIMVASTATIN 10 MG TAB PO SCH (20:15)
[2018-08-07] MEDS: METOPROLOL TARTRATE 25 MG TAB PO SCH ×3 (06:17→16:47)
[2018-08-07 06:43] LABS: INR 2.3 (0.9-1.1); Prothrombin Time 22.4 Seconds (9.0-12.0)
[2018-08-07 07:09] LABS: BUN Creatinine Ratio 22.6 (10-20); Calcium 8.4 mg/dl (8.5-10.1); Creatinine Clr Calc Pharmacy 11.8 ml/min; Est GFR (African American) 15.2; Est GFR (Non-African American) 13.1; Potassium 4.4 mmol/L (3.5-5.1)
[2018-08-07] MEDS: DOXYCYCLINE HYCLATE 100 MG CAP PO SCH ×2 (07:34→19:29)
[2018-08-07] MEDS: DOXAZosin MESYLATE 4 MG TAB PO SCH (07:34)
[2018-08-07] MEDS: ASPIRIN 81 MG ECTAB PO SCH (07:34)
[2018-08-07] MEDS: AMIODARONE 200 MG TAB PO SCH ×2 (07:35→16:48)
[2018-08-07] MEDS: CHOLECALCIFEROL 1,000 UNITS TAB PO SCH (07:35)
[2018-08-07] MEDS: FLUTICASONE/SALMETEROL 100/50 (ADVAIR) 14 PUFF/1 INHALER INH SCH ×2 (07:36→19:28)
[2018-08-07] MEDS: INSULIN ASPART 100 UNITS/ML 3 ML PEN SC SCH ×4 (08:13→20:57)
[2018-08-07] MEDS: DOCUSATE SODIUM/SENNA 50/8.6MG TAB PO SCH (10:09)
[2018-08-07] MEDS: cefTRIAXone SODIUM 1,000 MG in DEXTROSE 5% 50 ML IV SCH (13:37)
--- NOTE | 2018-08-07 15:40 | Hospitalist Progress Note ---
Date of Service August 07, 2018 Assessment & Plan (1) Acute respiratory failure: ACUTE HYPOXIC RESPIRATORY FAILURE secondary to: ACUTE SYSTOLIC, VALVULAR CHF echo: noted repeat CXR: CHF pattern, possible r pneumonia given IV Lasix, diuresed well respiratory status much improved Weaned off oxygen supplementation -- crea increased to 3 (baseline 2.1) HOLD off on Lasix today check crea tomorrow, dose Lasix accordingly patient usually on Bumex 3x/week also started on Metoprolol 12.5mg q6h Cardiology on board Possible component of mild COPD EXACERBATION UNDERLYING RIGHT SIDED PNEUMONIA? COPD exacerbation resolved Afebrile, leukocytosis resolved continue Ceftri, Doxy, Nebs PO Doxy on discharge (2) Atrial fibrillation, rapid: -[id number] score 5 (HTN, age, DM, female; score possibly 6 with CHF, echo pending) - started on amiodarone PO, Metoprolol 12.5 q6h now in Sinus tach -Heparin drip discontinued started on Coumadin, INR 2.4 reduce coumadin to 3mg po daily (3) Elevated troponin: possible Type 2 WI, Present on Admission, in the setting of Afib with RVR and acute systolic CHF peaked to 4, trended down EKG non specific t wave depression lateral lead patient denies chest pain (4) Possible urinary tract infection: Urine cultures negative (5) Chronic kidney disease: Acute Kidney Injury on CKFD 4 baseline crea 2.1 per review of outpatient records crea trending up, 3.0 today HOLD lasix today monitor crea (6) HTN (hypertension): -BP elevated on arrival, improved after IV diltiazem - on Metoprolol PO q6h -Continue home doses of clonidine and doxazosin, will hold losartan for now in light of unknown baseline creatinine and diuresis Improving (7) Diabetes: -A1c 7.8 -Hold oral agents and utilize NovoLog per protocol while hospitalized (8) DVT prophylaxis: -On Coumadin Subjective ff up for acute respiratory failure seen resting in bedside chair, comfortable in good spirits states she continues to feel better denies shortness of breath, cough, fever/chills no chest pain, dyspnea, palpitations, dizziness no other symptoms Review of Systems Review of Systems: All systems reviewed & are unremarkable except as noted in HPI & below Physical Exam Physical Exam: General- oriented x 3, not in distress, speaks in sentences with no effort or accessory muscle use Eyes- anicteric Neck- no JVD Lungs- clear BS BL no rales/wheezing Heart- normal rate, regular rhythm; no murmurs Abdomen- normal bowel sounds, nondistended, soft, nontender Extremities- trace pretibial edema, no calf tenderness Neuro- alert, oriented x 3; no gross focal neurologic deficits Skin- warm & dry Results & Data Vital Signs (Past 12 Hours) Vital Signs Temp Pulse Pulse Pulse Resp BP BP 08/07/18 15:16 36.4 C L 65 18 156/94 H 08/07/18 11:17 36.6 C 61 18 136/78 08/07/18 07:22 76 08/07/18 07:08 36.7 C 97 H 18 187/73 H 08/07/18 06:18 71 138/74 Pulse Ox 08/07/18 15:16 98 08/07/18 11:17 98 08/07/18 07:22 08/07/18 07:08 96 08/07/18 06:18
[2018-08-07] MEDS ORDERED: WARFARIN SOD 3 MG TAB PO SCH (16:00)
--- NOTE | 2018-08-07 17:54 | Cardiology Progress Note ---
Date of Service August 07, 2018 Assessment & Plan (1) Acute HFrEF (heart failure with reduced ejection fraction): (2) NSTEMI (non-ST elevated myocardial infarction): (3) Mitral regurgitation: (4) Pulmonary hypertension: (5) Elevated troponin: (6) Tricuspid regurgitation: (7) Atrial fibrillation, rapid: (8) Acute kidney injury superimposed on CKD: INR at goal at 2.3. Dose of coumadin reduced to 3 mg daily. PAF- new dx, now in SR. change metoprolol tartrate to metoprolol succinate 25 mg daily starting tomorrow. Holding diuretics for creatinine of 3.08, baseline apparently about 2 mg/dl. Subjective CC : follow up , shortness of breath. Subjective: Feeling well. SOB improving. Telemetry reveals SR, LBBB, in the 70s. Physical Exam Constitutional: no acute distress Respiratory: Auscultation: + diminished lung sounds (mildly decreased BS at bases); no crackles, no rales and no rhonchi Cardiovascular: RRR, no murmur, no edema Heart Sounds: + murmur (II/ systolic murmur) Vessels: no JVD Extremities: no edema Gastrointestinal (Abdomen): normal bowel sounds, soft, nontender, no hepatosplenomegaly Neurologic: PERRL, EOMI, accommodation nl, no face palsy, no dysarthria Results & Data Vital Signs (Past 12 Hours) Vital Signs Temp Pulse Pulse Pulse Resp BP BP 08/07/18 15:16 36.4 C L 65 18 156/94 H 08/07/18 11:17 36.6 C 61 18 136/78 08/07/18 07:22 76 08/07/18 07:08 36.7 C 97 H 18 187/73 H 08/07/18 06:18 71 138/74 Pulse Ox 08/07/18 15:16 98 08/07/18 11:17 98 08/07/18 07:22 08/07/18 07:08 96 08/07/18 06:18 Laboratory Results Coagulation INR 2.3 08/07/18 Range/Units 06:23 PT 22.4 H (9.0-12.0) Seconds Comprehensive Metabolic Panel 08/07/18 Range/Units 06:23 Sodium 136 (136-145) mmol/L Potassium 4.4 (3.5-5.1) mmol/L Chloride 102 (98-107) mmol/L Carbon Dioxide 25 (21-32) mmol/L BUN 70 H (7-18) mg/dl Creatinine 3.08 H D (0.6-1.2) mg/dl Glucose 98 (70-99) mg/dl Calcium 8.4 L (8.5-10.1) mg/dl Intake and Output 08/07/18 08/07/18 08/07/18 06:59 14:59 22:59 Intake Total 50 / 948.967 250 / 250 Output Total 700 / 1600 301 / 301 Balance -650 / -651.033 -51 / -51 Intake: IV 50 / 50 Rocephin 1,000 mg In D5w 50 ml 50 / 50 @ 100 mls/hr IV Q24H [facility] Rx#: [id number] Oral 50 / 790 200 / 200 Output: Urine Amount (Catheter) 700 / 1600 300 / 300 Hernandes/Indwelling 700 / 1600 300 / 300 # Bowel Movements
[2018-08-07] MEDS: SIMVASTATIN 10 MG TAB PO SCH (19:29)
[2018-08-08 06:00] LABS: Prothrombin Time 44.5 Seconds (9.0-12.0)
[2018-08-08 06:01] LABS: INR 4.9 (0.9-1.1)
[2018-08-08 06:09] LABS: BUN Creatinine Ratio 24.1 (10-20); Calcium 8.4 mg/dl (8.5-10.1); Creatinine Clr Calc Pharmacy 12.4 ml/min; Est GFR (Non-African American) 13.8; Potassium 4.2 mmol/L (3.5-5.1)
[2018-08-08] MEDS: CHOLECALCIFEROL 1,000 UNITS TAB PO SCH (07:40)
[2018-08-08] MEDS: DOXAZosin MESYLATE 4 MG TAB PO SCH (07:40)
[2018-08-08] MEDS: AMIODARONE 200 MG TAB PO SCH ×2 (07:41→16:56)
[2018-08-08] MEDS: INSULIN ASPART 100 UNITS/ML 3 ML PEN SC SCH ×4 (07:42→21:01)
[2018-08-08] MEDS: METOPROLOL SUCC 25MG EXT REL TAB PO SCH (08:27)
[2018-08-08] MEDS: DOXYCYCLINE HYCLATE 100 MG CAP PO SCH ×2 (08:28→20:52)
[2018-08-08] MEDS: FLUTICASONE/SALMETEROL 100/50 (ADVAIR) 14 PUFF/1 INHALER INH SCH ×2 (08:28→20:51)
[2018-08-08] MEDS: DOCUSATE SODIUM/SENNA 50/8.6MG TAB PO SCH (08:31)
[2018-08-08] MEDS: MAGNESIUM HYDROXIDE SUSP 30 ML UDC PO PRN (08:31)
--- NOTE | 2018-08-08 12:50 | Hospitalist Progress Note ---
Date of Service August 08, 2018 Assessment & Plan (1) Acute respiratory failure: ACUTE HYPOXIC RESPIRATORY FAILURE secondary to: Acute systolic valvular Congestive heart failure -severe mitral regurgitation; moderate to severe tricuspid regurgitation -patient has been diuresed with Lasix -lower leg edema is much improved bur right extremity has more edema than left leg, will get venous ultrasound to ryle out DVT -continue to hold off Lasix given that patient is currently breathing on room air and because of chronic kidney disease -expect that patient be returned to oral diuretics prior to hospital discharge -metoprolol 12.5mg q6h has been transitioned to metoprolol succinate 25 mg daily as per cardiology service mild COPD exacerbation has resolved on this admission right sided pneumonia -admission with leukocytosis of 17,000 -has been on ceftriaxone and doxycycline since 08/04/18 -will continue antibiotics for now, will plan on repeat Chest X ray (2) Atrial fibrillation, rapid: -initially on this admission with atrial fibrillation -patient was given amiodarone and metoprolol on this admission and patient has been in sinus rhythm since 08/06/18 -patient also was systemically anticoagulated with heparin drip and had been bridged to coumadin -continue amiodarone and metoprolol beta jael -hold coumadin fro now because INR is 4.9, hold aspirin for now Anemia -Hgb downtrended to 8.2 -blood transfusion consent signed if more anemia, trend CBC (3) Elevated troponin: elevated troponins secondary to possible demand ischemia from atrial fibrillation and chronic kidney disease troponin peaked at 4 and trended down as per cardiology service Her elevated troponin must be interpreted with taking her kidney function into account (4) Possible urinary tract infection: Urine cultures negative (5) Chronic kidney disease: Acute Kidney Injury on Chronic Kidney Disease stage IV -monitor renal function off diuretics (6) HTN (hypertension): -BP elevated on arrival, improved after IV diltiazem -on metoprolol succinate -Continue home doses of clonidine and doxazosin -will resume home medication of losartan as low dose (7) Diabetes: -A1c 7.8 -Hold oral agents and utilize NovoLog per protocol while hospitalized (8) DVT prophylaxis: -has been on coumadin on this admission, INR is 4.3 on 08/08/18, hold oral coumadin daughter Jeanne [phone] Subjective Patient seen and examined with daughter Jeanne [phone] at the bedside. Patient pleasant. awake and alert. We discussed INR elevated at 4.9 and downtrending hemoglobin. Patient signed consent for blood transfusion if needed. no chest pain. no shortness of breath. breathing on room air. Jeanne confirms that leg edema is much improved during this hospital stay. Patient denies bleeding from orifices but nurse reports hemorrhoids Physical Exam Constitutional: WD/WN, vitals as above Eyes: PERRL, conjunctivae normal, anicteric sclerae EOM intact bilaterally ENMT: external ear and nose normal, oropharynx normal Neck: trachea midline, no thyromegaly normal visual inspection Respiratory: normal respiratory effort Cardiovascular: Rate/Rhythm: regular rhythm and + bradycardic Gastrointestinal (Abdomen): normal bowel sounds, soft, nontender, no hepatosplenomegaly Musculoskeletal: Extremities: + lower leg abnormality (right lower extremity edema more than left) Neurologic: PERRL, EOMI, accommodation nl, no face palsy, no dysarthria Psychiatric: A+Ox3, euthymic affect Results & Data Vital Signs (Past 12 Hours) Vital Signs Temp Pulse Pulse Resp BP Pulse Ox 08/08/18 11:16 36.4 C L 59 L 20 159/77 H 97 08/08/18 08:00 73 08/08/18 06:57 36.9 C 73 16 171/82 H 95 08/08/18 03:02 36.7 C 68 18 145/85 H 94 08/08/18 02:56 36.4 C L 62 18 143/78 H 98 08/08/18 00:45 60
[2018-08-08] MEDS: cefTRIAXone SODIUM 1,000 MG in DEXTROSE 5% 50 ML IV SCH (13:35)
[2018-08-08] MEDS: LOSARTAN POTASSIUM 25 MG TAB PO SCH (15:46)
--- NOTE | 2018-08-08 16:08 | Ultrasound Report ---
BILATERAL LOWER EXTREMITY VENOUS DOPPLER HISTORY: Acute pain and swelling of the lower legs rule out DVT COMPARISON STUDY: None. FINDINGS: There is normal compressibility, flow, and augmentation within the bilateral lower extremit y deep venous systems. Within the right popliteal vein, there is minimal peripheral increased echogen icity. The calf vessels are suboptimally visualized secondary to lower extremity edema. Indeterminate hypoechoic cystic area is noted about the distal medial aspect of the right thigh, 4.5 x 1.4 x 1.6 cm. 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 0 cm. IMPRESSION: 1. No acute occlusive deep venous thrombosis within the right or left lower extremity. 2. Increased echogenicity about the peripheral right popliteal vein may reflect changes related to ch ronic nonocclusive thrombus. 3. Indeterminate cystic focus of the distal medial right thigh, 4.5 cm. Correlate clinically.. Electronically signed by: Andreas Blanchard M.D. 08/08/2018 4:06 PM
--- NOTE | 2018-08-08 19:39 | Cardiology Progress Note ---
Date of Service August 08, 2018 Assessment & Plan (1) Acute HFrEF (heart failure with reduced ejection fraction): volume status stable off of diuretics due to JASON. (2) LBBB (left bundle branch block): Stable Remains in SR. (3) Mitral regurgitation: No operative intervention recommended. (4) Pulmonary hypertension: Likely due to diastolic dysfunction and MR. Diuretics when renal function stable. (5) NSTEMI (non-ST elevated myocardial infarction): s/p heparin. Continue beta jael and low dose simvastatin, (dose adjusted for amiodarone) (6) Acute kidney injury superimposed on CKD: Holding diuretics. (7) Atrial fibrillation, rapid: In SR. INR elevated. Coumadin on hold. Continue toprol. Continue amiodarone. Subjective CC: follow up SOB Subjective: Continue to feel better in terms of her breathing. LE edema improved. Telemetry reveals SR. Physical Exam Constitutional: WD/WN, vitals as above Respiratory: normal respiratory effort, lungs clear to auscultation Cardiovascular: Rate/Rhythm: regular rate and regular rhythm Heart Sounds: + murmur (II/ SM) Extremities: + edema (trace edema) Gastrointestinal (Abdomen): normal bowel sounds, soft, nontender, no hepatosplenomegaly Neurologic: PERRL, EOMI, accommodation nl, no face palsy, no dysarthria Results & Data Vital Signs (Past 12 Hours) Vital Signs Temp Pulse Pulse Resp BP BP Pulse Ox 08/08/18 18:57 36.5 C 70 18 137/74 97 08/08/18 16:24 36.3 C L 79 20 170/79 H 97 08/08/18 11:16 36.4 C L 59 L 20 159/77 H 97 08/08/18 08:00 73 Laboratory Results Coagulation 08/08/18 Range/Units 05:23 PT 44.5 H (9.0-12.0) Seconds Comprehensive Metabolic Panel 08/08/18 Range/Units 05:23 Sodium 137 (136-145) mmol/L Potassium 4.2 (3.5-5.1) mmol/L Chloride 103 (98-107) mmol/L Carbon Dioxide 26 (21-32) mmol/L BUN 71 H (7-18) mg/dl Creatinine 2.94 H (0.6-1.2) mg/dl Glucose 90 (70-99) mg/dl Calcium 8.4 L (8.5-10.1) mg/dl Intake and Output 08/08/18 08/08/18 08/08/18 06:59 14:59 22:59 Intake Total 325 / 355 30 / 355 Output Total 275 / 826 450 / 450 Balance -275 / -201 -125 / -95 30 / -95 Intake: IV 50 / 50 Rocephin 1,000 mg In D5w 50 ml 50 / 50 @ 100 mls/hr IV Q24H [facility] Rx#: [id number] Oral 275 / 305 30 305 Output: Urine Amount (Catheter) 275 / 825 450 / 450 Hernandes/Indwelling 275 / 825 450 / 450 Other: Weight 67.9 kg Medications Administered Current Inpatient Medications Acetaminophen (Tylenol) 650 mg PO Q4H PRN PRN Reason: Pain or Fever Stop: 09/03/18 12:14 Amiodarone HCl (Cordarone) 200 mg PO BIDM [facility] Stop: 09/04/18 16:59 Last Admin: 08/08/18 16:56 Dose: 200 mg Documented by: Aspirin (Ecotrin Ectab) 81 mg PO QAM [facility] Stop: 09/04/18 08:59 Last Admin: 08/07/18 07:34 Dose: 81 mg Documented by: Bisacodyl (Dulcolax) 10 mg [place] DAILY PRN PRN Reason: Constipation Stop: 09/04/18 13:18 Clonidine HCl (Catapress) 0.3 mg PO BIDM [facility] Stop: 09/03/18 16:59 Last Admin: 08/08/18 16:56 Dose: 0.3 mg Documented by: Dextrose (Dextrose 50%) 25 - 50 ml IV UD PRN; Protocol PRN Reason: Hypoglycemia Protocol Stop: 09/03/18 12:17 Doxazosin Mesylate (Cardura) 4 mg PO QDB [facility] Stop: 09/04/18 07:29 Last Admin: 08/08/18 07:40 Dose: 4 mg Documented by: Doxycycline Hyclate (Vibramycin) 100 mg PO BID [facility]; Protocol Stop: 08/11/18 20:59 Last Admin: 08/08/18 08:28 Dose: 100 mg Documented by: Glucagon (Glucagen) 1 mg SQ UD PRN; Protocol PRN Reason: Hypoglycemia Protocol Stop: 09/03/18 12:17 Glucose (Dex4 Glucose) 4 - 8 tabs PO UD PRN; Protocol PRN Reason: Hypoglycemia Protocol Stop: 09/03/18 12:17 Glucose (Glucose 40%) 15 - 30 gm PO UD PRN; Protocol PRN Reason: Hypoglycemia Protocol Stop: 09/03/18 12:17 Ceftriaxone Sodium 1,000 mg/ (Dextrose) 50 mls @ 100 mls/hr IV Q24H [place]; Protocol Stop: 08/09/18 13:59 Last Infusion: 08/08/18 14:37 Dose: Infused Documented by: Insulin Aspart (Novolog Flexpen) 0 units SC ACHS [facility] Stop: 09/03/18 16:29 Last Admin: 08/08/18 16:57 Dose: 2 units Documented by: Losartan Potassium (Cozaar) 25 mg PO QAM [facility] Stop: 09/07/18 13:59 Last Admin: 08/08/18 15:46 Dose: 25 mg Documented by: Magnesium Hydroxide (Milk Of Magnesia) 30 ml PO Q6H PRN PRN Reason: Constipation Stop: 09/04/18 12:50 Last Admin: 08/08/18 08:31 Dose: 30 ml Documented by: Metoprolol Succinate ([facility]rol Xl) [facility] Stop: 09/07/18 08:59 Last Admin: 08/08/18 08:27 Dose: 25 mg Documented by: Miscellaneous (Carbohydrates For Hypoglycemia) 15 - 30 gm PO UD PRN PRN Reason: Hypoglycemia Treatment Stop: 09/03/18 12:17 Polyethylene Glycol (Miralax Powder Packet) 17 gm PO DAILY PRN PRN Reason: Constipation Stop: 09/04/18 12:52 Last Admin: 08/05/18 15:13 Dose: 17 gm Documented by: Fluticasone/Salmeterol (Advair Diskus 100/50) 1 puffs INH BID [facility] Stop: 09/03/18 20:59 Last Admin: 08/08/18 08:28 Dose: 1 puffs Documented by: Senna/Docusate Sodium (Senokot S) 1 tab PO QAM [facility] Stop: 09/04/18 12:59 Last Admin: 08/08/18 08:31 Dose: 1 tab Documented by: Simvastatin (Zocor) 10 mg PO PM [facility] Stop: 09/03/18 20:59 Last Admin: 08/07/18 19:29 Dose: 10 mg Documented by: Vitamin D (Vitamin D3) 5,000 units PO QDB [facility] Stop: 09/04/18 07:29 Last Admin: 08/08/18 07:40 Dose: 5,000 units Documented by: Warfarin Sodium (Coumadin) 3 mg PO DAILY@1600 [facility] Stop: 09/06/18 15:59 Last Admin: 08/07/18 16:46 Dose: 3 mg Documented by:
[2018-08-08] MEDS: SIMVASTATIN 10 MG TAB PO SCH (20:52)
[2018-08-09] MEDS: MAGNESIUM HYDROXIDE SUSP 30 ML UDC PO PRN (04:37)
[2018-08-09 07:22] LABS: Basophils # (auto) 0.01 K/uL (0-0.2); Basophils % (auto) 0.1 %; Eosinophils # (auto) 0.19 K/uL (0-0.5); Eosinophils % (auto) 2.7 %; Hematocrit (blood only) 26.9 % (37-47); Hemoglobin 8.6 g/dL (12.0-16.0); Immature Granulocytes # (auto) 0.01 K/uL (0.00-0.02); Immature Granulocytes % (auto) 0.1 %; Lymphocytes # (auto) 1.74 K/uL (1.2-3.4); Lymphocytes % (auto) 24.9 %; Mean Corpuscular Volume 87.1 fL (80-100); Mean Platelet Volume 10.1 fL (7.4-10.4); Monocytes # (auto) 0.63 K/uL (0.11-0.59); Neutrophils # (auto) 4.41 K/uL (1.4-6.5); Neutrophils % (auto) 63.2 %; Platelet Count 245 K/uL (130-400); RDW Coefficient of Variation 15.7 % (11.5-14.5); RDW Standard Deviation 50.4 fL (36.4-46.3); Red Blood Count 3.09 M/uL (4.2-5.4); White Blood Count 6.99 K/uL (4.8-10.8)
[2018-08-09 07:40] LABS: Prothrombin Time 62.8 Seconds (9.0-12.0)
[2018-08-09] MEDS: DOXAZosin MESYLATE 4 MG TAB PO SCH (07:43)
[2018-08-09] MEDS: LOSARTAN POTASSIUM 25 MG TAB PO SCH (07:43)
[2018-08-09] MEDS: CHOLECALCIFEROL 1,000 UNITS TAB PO SCH (07:44)
[2018-08-09] MEDS: METOPROLOL SUCC 25MG EXT REL TAB PO SCH (07:44)
[2018-08-09] MEDS: AMIODARONE 200 MG TAB PO SCH ×2 (07:44→16:55)
[2018-08-09] MEDS: DOXYCYCLINE HYCLATE 100 MG CAP PO SCH (07:45)
[2018-08-09] MEDS: FLUTICASONE/SALMETEROL 100/50 (ADVAIR) 14 PUFF/1 INHALER INH SCH ×2 (07:45→21:14)
[2018-08-09] MEDS: INSULIN ASPART 100 UNITS/ML 3 ML PEN SC SCH ×4 (07:46→21:14)
[2018-08-09] MEDS: DOCUSATE SODIUM/SENNA 50/8.6MG TAB PO SCH (07:49)
[2018-08-09 07:58] LABS: Albumin Level 2.5 gm/dl (3.4-5.0); BUN Creatinine Ratio 25.3 (10-20); Calcium 8.7 mg/dl (8.5-10.1); Creatinine Clr Calc Pharmacy 13.1 ml/min; Est GFR (African American) 17.4; Potassium 4.7 mmol/L (3.5-5.1)
[2018-08-09 08:01] LABS: Albumin Globulin Ratio 0.8 (0.9-2); Bilirubin,Total 0.4 mg/dl (0.2-1); Total Protein 5.5 gm/dl (6.4-8.2)
[2018-08-09 08:08] LABS: INR 7.1 (0.9-1.1)
[2018-08-09] MEDS ORDERED: PHYTONADIONE 2.5 MG in SODIUM CHLORIDE 0.9% 50 ML IV ONE (08:28)
--- NOTE | 2018-08-09 11:31 | XRay Report ---
XR chest 2V routine CLINICAL HISTORY: follow up lung infiltrates COMPARISON STUDY: Chest CT August 04, 2018. Chest radiograph August 05, 2018. FINDINGS: Cardiomegaly is unchanged. Interstitial thickening has improved. Small bilateral pleural ef fusions are unchanged. A large hiatal hernia is noted. Right lung airspace opacities have improved. IMPRESSION: 1. Interval improvement in pulmonary edema. 2. No significant change in small bilateral pleural effusions. Electronically signed by: Tejas Boudreaux M.D. 08/09/2018 11:30 AM
[2018-08-09 15:32] LABS: INR 1.8 (0.9-1.1); Prothrombin Time 17.4 Seconds (9.0-12.0)
[2018-08-09] MEDS ORDERED: WARFARIN SOD 2 MG TAB PO SCH (16:00)
[2018-08-09] MEDS ORDERED: BUMETANIDE 1 MG TAB PO SCH (16:30)
[2018-08-09] MEDS ORDERED: LOSARTAN POTASSIUM 25 MG TAB PO STA (16:31)
--- NOTE | 2018-08-09 16:35 | Hospitalist Progress Note ---
Date of Service August 09, 2018 Assessment & Plan (1) Acute respiratory failure: ACUTE HYPOXIC RESPIRATORY FAILURE secondary to: Acute systolic valvular Congestive heart failure -severe mitral regurgitation; moderate to severe tricuspid regurgitation -patient has been diuresed with Lasix -lower leg edema is much improved Ultrasound lower extremity 08/08/18 1. No acute occlusive deep venous thrombosis within the right or left lower extremity. 2. Increased echogenicity about the peripheral right popliteal vein may reflect changes related to chronic nonocclusive thrombus. 3. Indeterminate cystic focus of the distal medial right thigh, 4.5 cm -continue metoprolol succinate 25 mg daily as per cardiology service -Lasix was held to prevent worsening acute kidney injury -as patient's fluid status is improved will plan on resuming bumex 1 mg q2 days starting on 08/09/18 -patient had hogue removed on 08/09/18 and being observed for voiding mild COPD exacerbation has resolved on this admission right sided pneumonia -admission with leukocytosis of 17,000 -has been on ceftriaxone and doxycycline since 08/04/18 -CXR on 08/09/18 showed improvements of infiltrates and stopped ceftriaxone and doxycline on 08/09/18 as last day (2) Atrial fibrillation, rapid: -initially on this admission with atrial fibrillation -patient was given amiodarone and metoprolol on this admission and patient has been in sinus rhythm since 08/06/18 -continue amiodarone and metoprolol beta jael -patient also was systemically anticoagulated with heparin drip and had been bridged to coumadin 3 mg daily -coumadin was held on 08/08/18 because INR 4.9, then INR increased to 7.1 by 08/09/18 and vitamin IV was given with rechecked INR on 08/09/18 as 1.8 so coumadin is resumed as low dose 2 mg daily Anemia -Hgb stable at 8.6 (3) Elevated troponin: elevated troponins secondary to possible demand ischemia from atrial fibrillation and chronic kidney disease troponin peaked at 4 and trended down as per cardiology service Her elevated troponin must be interpreted with taking her kidney function into account (4) Possible urinary tract infection: Urine cultures negative (5) Chronic kidney disease: Acute Kidney Injury on Chronic Kidney Disease stage IV -reported baseline creatinine as per previous notes that patient's creatinine usually around 2.4 -monitor renal function (6) HTN (hypertension): -BP elevated on arrival, improved after IV diltiazem -on metoprolol succinate -Continue home doses of clonidine and doxazosin -continue home medication of losartan as low dose 50 mg daily (7) Diabetes: -A1c 7.8 -Hold oral agents and utilize NovoLog per protocol while hospitalized (8) DVT prophylaxis: -coumadin daughter Jeanne [phone] Disposition: discussed with patient and daughter about close monitoring and trial of void, with some resumption of home dose medications, and repeat INR on 08/10/18 while in the hospital Subjective Patient breathing on room air. no chest pain. currently sinus in rhythm. no palpitations. patient had hogue removed on 08/09/18 and made small amount of urine on her own.elevated INR was reversed. no lightheadedness. no dizziness. no headache Physical Exam Constitutional: WD/WN, vitals as above Eyes: PERRL, conjunctivae normal, anicteric sclerae EOM intact bilaterally ENMT: external ear and nose normal, oropharynx normal Neck: trachea midline, no thyromegaly normal visual inspection Respiratory: normal respiratory effort Cardiovascular: Rate/Rhythm: regular rhythm and + bradycardic Gastrointestinal (Abdomen): normal bowel sounds, soft, nontender, no hepatosplenomegaly Neurologic: PERRL, EOMI, accommodation nl, no face palsy, no dysarthria Psychiatric: A+Ox3, euthymic affect Results & Data Vital Signs (Past 12 Hours) Vital Signs Temp Pulse Resp BP BP Pulse Ox 08/09/18 15:26 36.5 C 71 18 172/80 H 94 08/09/18 11:30 36.7 C 60 20 160/76 H 96 08/09/18 09:48 36.8 C 74 20 155/85 H 96 08/09/18 09:27 36.8 C 65 18 153/73 H 96 08/09/18 09:17 36.8 C 65 18 168/74 H 97 08/09/18 07:36 36.6 C 81 18 175/81 H 93
[2018-08-09] MEDS: SIMVASTATIN 10 MG TAB PO SCH (21:14)
[2018-08-10 06:14] LABS: Basophils # (auto) 0.02 K/uL (0-0.2); Basophils % (auto) 0.2 %; Eosinophils # (auto) 0.13 K/uL (0-0.5); Eosinophils % (auto) 1.6 %; Hematocrit (blood only) 27.8 % (37-47); Immature Granulocytes # (auto) 0.03 K/uL (0.00-0.02); Immature Granulocytes % (auto) 0.4 %; Lymphocytes # (auto) 1.36 K/uL (1.2-3.4); Lymphocytes % (auto) 16.3 %; Mean Corpuscular Hgb Conc 32.4 g/dL (32-36); Mean Corpuscular Volume 86.6 fL (80-100); Monocytes # (auto) 0.69 K/uL (0.11-0.59); Monocytes % (auto) 8.3 %; Neutrophils # (auto) 6.11 K/uL (1.4-6.5); Neutrophils % (auto) 73.2 %; Platelet Count 267 K/uL (130-400); RDW Coefficient of Variation 15.6 % (11.5-14.5); RDW Standard Deviation 49.7 fL (36.4-46.3); Red Blood Count 3.21 M/uL (4.2-5.4); White Blood Count 8.34 K/uL (4.8-10.8)
[2018-08-10 06:21] LABS: INR 1.5 (0.9-1.1); Prothrombin Time 14.7 Seconds (9.0-12.0)
[2018-08-10 06:48] LABS: Albumin Level 2.7 gm/dl (3.4-5.0); BUN Creatinine Ratio 23.1 (10-20); Calcium 8.7 mg/dl (8.5-10.1); Creatinine Clr Calc Pharmacy 13.3 ml/min; Est GFR (African American) 17.8; Est GFR (Non-African American) 15.3; Magnesium 2.7 mg/dl (1.8-2.4); Potassium 4.6 mmol/L (3.5-5.1)
[2018-08-10 06:51] LABS: Albumin Globulin Ratio 0.8 (0.9-2); Bilirubin,Total 0.6 mg/dl (0.2-1); Globulin 3.2 gm/dl (2.5-4.0); Total Protein 5.9 gm/dl (6.4-8.2)
[2018-08-10] MEDS: FLUTICASONE/SALMETEROL 100/50 (ADVAIR) 14 PUFF/1 INHALER INH SCH (07:35)
[2018-08-10] MEDS: DOCUSATE SODIUM/SENNA 50/8.6MG TAB PO SCH (07:36)
[2018-08-10] MEDS: DOXAZosin MESYLATE 4 MG TAB PO SCH (07:36)
[2018-08-10] MEDS: METOPROLOL SUCC 25MG EXT REL TAB PO SCH (07:37)
[2018-08-10] MEDS: AMIODARONE 200 MG TAB PO SCH (07:37)
[2018-08-10] MEDS: CHOLECALCIFEROL 1,000 UNITS TAB PO SCH (07:37)
--- NOTE | 2018-08-10 08:20 | Hospitalist Progress Note ---
Date of Service August 10, 2018 Assessment & Plan (1) Acute respiratory failure: ACUTE HYPOXIC RESPIRATORY FAILURE secondary to: Acute systolic valvular Congestive heart failure -severe mitral regurgitation; moderate to severe tricuspid regurgitation -patient has been diuresed with Lasix -lower leg edema is much improved Ultrasound lower extremity 08/08/18 1. No acute occlusive deep venous thrombosis within the right or left lower extremity. 2. Increased echogenicity about the peripheral right popliteal vein may reflect changes related to chronic nonocclusive thrombus. 3. Indeterminate cystic focus of the distal medial right thigh, 4.5 cm -continue metoprolol succinate 25 mg daily as per cardiology service -Lasix was held to prevent worsening acute kidney injury -as patient's fluid status is improved will plan on resuming bumex 1 mg q2 days starting on 08/09/18 -patient had hogue removed on 08/09/18 - no problems with voiding CHF instructions Call your Primary Care doctor if any of the following symptoms or problems start or get worse: * Shortness of breath or difficulty breathing * Wake up at night short of breath * Chest pain * Cough * Swelling of your hands, feet, or legs * More fatigued or tired with your normal activity * Palpitations - sudden fast heart beats WEIGHT * Weigh yourself every morning after using the bathroom. * Use the same scale. * Wear the same amount of clothing. * Write your weight down on a chart. * Call your Primary Care doctor if you gain more than 2-3 pounds in 1-2 days. MEDICATIONS * Use this discharge instruction sheet for medication instructions. * Take your medications at the time your doctor ordered. * Do not skip a dose of your medicines. * If you miss a dose of medicine, take it as soon as possible, but DO NOT DOUBLE A DOSE. * Read your medicine information when you get home. * Know all of the side effects of your medicine. If in doubt, ask your pharmacist * Call your Primary Care doctor's office if you have any side effects. * Be sure all of your doctors know what medicine and herbs you take (including cold, flu, and herbal medicine). Take the following with you to your follow-up doctor appointments: * Weight Chart * Medication List * List of questions Do not drink excessive alcohol, beer or wine. right sided pneumonia mild COPD exacerbation has resolved on this admission -admission with leukocytosis of 17,000 -has been on ceftriaxone and doxycycline since 6/8/19 -CXR on 08/09/18 showed improvements of infiltrates and stopped ceftriaxone and doxycline on 08/09/18 as last day (2) Atrial fibrillation, rapid: -initially on this admission with atrial fibrillation -patient was given amiodarone and metoprolol on this admission and patient has been in sinus rhythm since 08/06/18 -continue amiodarone and metoprolol beta jael -patient also was systemically anticoagulated with heparin drip and had been bridged to coumadin 3 mg daily -coumadin was held on 08/08/18 because INR 4.9, then INR increased to 7.1 by 08/09/18 and vitamin IV was given with rechecked INR on 08/09/18 as 1.8 so coumadin is resumed as low dose 2 mg daily -Discharge day INR is 1.5 Patient should follow up with primary care doctor and to have INR rechecked while on coumadin 2 mg daily (goal INR is 2 to 3) Patient to be on simvastatin 10 mg daily on discharge instead of 40 mg daily to minimize potential drug interactions with amiodarone Patient should take amiodarone 200 mg twice a day and metoprolol succinate daily for heart rate and rhythm Anemia -Hgb stable at 8.6 (3) Elevated troponin: elevated troponins secondary to possible demand ischemia from atrial fibrillation and chronic kidney disease troponin peaked at 4 and trended down as per cardiology service Her elevated troponin must be interpreted with taking her kidney function into account (4) Possible urinary tract infection: Urine cultures negative (5) Chronic kidney disease: Acute Kidney Injury on Chronic Kidney Disease stage IV -reported baseline creatinine as per previous notes that patient's creatinine usually around 2.4 -renal function generally above 2.4 during hospital stay but stabilized between 2.6 to 2.7 (6) HTN (hypertension): -BP elevated on arrival, improved after IV diltiazem -on metoprolol succinate -Continue home doses of clonidine and doxazosin -Patient to continue losartan as 50 mg daily instead of 100 mg daily at home to avoid hypotension with multiple relatively new cardiac medications of amiodarone and metoprolol but if blood pressure remains elevated when follow up with [facility] doctor then losartan 100 mg daily could be resumed (7) Diabetes: Type 2 diabetes mellitus without complication 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 Patient should get blood sugar checked at primary care doctor's office (8) DVT prophylaxis: -coumadin daughter Jeanne [phone] Discharge Diagnosis ACUTE HYPOXIC RESPIRATORY FAILURE secondary to Acute systolic valvular Congestive heart failure (severe mitral regurgitation; moderate to severe tri cuspid regurgitation) - the hypoxia has resolved, atrial fibrillation initially with rapid ventricular response - the heart rate is now normal and in sinus rhythm, on coumadin for anticoagulation, Hypertension, Chronic kidney Disease, Type 2 diabetes mellitus without complication and without residential current use of insulin, Right sided pneumonia - treated, Anemia Patient is discharged to home Discharge day INR is 1.5 Patient should follow up with primary care doctor and to have INR rechecked while on coumadin 2 mg daily (goal INR is 2 to 3) 08/14/2018 1:00 PM Provider [facility] Department [facility] Patient is discharged with changes made to home medications including: holding off glimepiride for diabetes mellitus due to renal function patient may continue to take Januvia 25 mg (sitagliptin) for diabetes mellitus. Patient should get blood sugar checked at primary care doctor's office Patient to be on simvastatin 10 mg daily on discharge instead of 40 mg daily to minimize potential drug interactions with amiodarone Patient should take amiodarone 200 mg twice a day and metoprolol succinate daily for heart rate and rhythm Patient to continue losartan as 50 mg daily instead of 100 mg daily at home to avoid hypotension with multiple relatively new cardiac medications of amiodarone and metoprolol but if blood pressure remains elevated when follow up with primary care doctor then losartan 100 mg daily could be resumed Subjective Patient's blood pressure noted to be high this morning before nurse gave the morning medications. She is mentating at baseline and eager to be discharged to home under care of her daughter. Patient breathing on room air. Heart rate regular and in sinus. right leg size is the same as before. no acute leg edema compared to prior Physical Exam Constitutional: WD/WN, vitals as above Eyes: PERRL, conjunctivae normal, anicteric sclerae EOM intact bilaterally ENMT: external ear and nose normal, oropharynx normal Neck: trachea midline, no thyromegaly normal visual inspection Respiratory: normal respiratory effort Cardiovascular: Rate/Rhythm: regular rate and regular rhythm Gastrointestinal (Abdomen): normal bowel sounds, soft, nontender, no hepatosplenomegaly Musculoskeletal: Extremities: + lower leg abnormality (right lower extremity edema more than left) Neurologic: PERRL, EOMI, accommodation nl, no face palsy, no dysarthria Psychiatric: A+Ox3, euthymic affect Results & Data Vital Signs (Past 12 Hours) Vital Signs Temp Pulse Resp BP BP Pulse Ox 08/10/18 07:28 36.7 C 90 18 187/79 H 94 08/10/18 04:20 36.8 C 81 16 167/84 H 92 08/09/18 23:40 36.4 C L 86 18 166/62 H 94
[2018-08-10] MEDS: INSULIN ASPART 100 UNITS/ML 3 ML PEN SC SCH (08:29)
--- NOTE | 2018-08-10 08:29 | Discharge Summary ---
Date of Service August 10, 2018 Admission HPI Per Admitting Provider 88-year-old female who presents to the ED with shortness of breath. Patient is currently visiting from out of town, staying with her daughter. She arrived yesterday. She was in her usual state of health yesterday. This morning, around 4 AM, she called out to her daughter and reported that she was short of breath. Her daughter found her leaning over, very short of breath, and diaphoretic. Patient also reports she felt lightheaded. EMS was then called. Patient denies chest pain and palpitations. She has chronic lower extremity edema which is managed by her outpatient shop director. This is been mildly incr eased over the past couple of weeks. Patient denies orthopnea. No cough or sputum production. Denies fevers and chills. No abdominal pain, nausea, vomiting, diarrhea. She denies urinary symptoms. Upon EMS arrival, patient was found to be in A. fib with RVR. She was given diltiazem 50 mg IV and transported to the ED. In the ER, she was placed on BiPAP secondary to tachypnea and increased work of breathing. She remained in A. fib with RVR and was given an additional diltiazem 20 mg IV and Lasix 40 mg IV. EKG shows LBBB with A. fib RVR. Labs show WBC 17 K, Hgb 9.4, creatinine 2.6, initial troponin 0 0.094. Negative procalcitonin lactate. UA suggest possible UTI. CXR shows volume overload and possible underlying pneumonia. Admission Exam Per Admitting Provider Physical Exam Constitutional: WD/WN, vitals as above Eyes: PERRL, conjunctivae normal, anicteric sclerae ENMT: external ear and nose normal, oropharynx normal Respiratory: normal respiratory effort; no respiratory distress Auscultation: + diminished lung sounds On BiPAP Cardiovascular: Rate/Rhythm: + tachycardic and + irregularly irregular Vessels: normal peripheral pulses Extremities: + edema (+3 pitting BLE) Gastrointestinal (Abdomen): normal bowel sounds, soft, nontender, no hepatosplenomegaly Musculoskeletal: no cyanosis or clubbing, extremities motor strength 5/5 Skin: no rashes, warm and dry Neurologic: PERRL, EOMI, accommodation nl, no face palsy, no dysarthria Psychiatric: A+Ox3, euthymic affect Genitourinary: Hogue in place draining clear yellow urine Principal Diagnosis ACUTE HYPOXIC RESPIRATORY FAILURE secondary to Acute systolic valvular Conge stive heart failure (severe mitral regurgitation; moderate to severe tricuspid regurgitation) - the hypoxia has resolved, atrial fibrillation initially with rapid ventricular response - the heart rate is now normal and in sinus rhythm, on coumadin for anticoagulation, Hypertension, Chronic kidney Disease, Type 2 diabetes mellitus without complication and without shelter current use of insulin, Right sided pneumonia - treated, Anemia Discharge Exam Constitutional WD/WN, vitals as above Eyes PERRL, conjunctivae normal, anicteric sclerae EOM intact bilaterally ENMT external ear and nose normal, oropharynx normal Neck trachea midline, no thyromegaly normal visual inspection Respiratory normal respiratory effort Cardiovascular Rate/Rhythm: regular rate and regular rhythm Gastrointestinal (Abdomen) normal bowel sounds, soft, nontender, no hepatosplenomegaly Musculoskeletal Extremities: + lower leg abnormality (right lower extremity edema more than left) Neurologic PERRL, EOMI, accommodation nl, no face palsy, no dysarthria Psychiatric A+Ox3, euthymic affect Discharge Data Allergies Allergy/AdvReac Type Severity Reaction Status Date / Time No Known Allergies Allergy Unverified 08/04/18 09:22 Consultations 08/04/18 10:09 ED Decision to Admit Stat 08/04/18 12:15 Consult Cardiology Routine Consult Case Management - Discharge Planning Routine Consult Health Information Management Stat Ordered Studies 08/04/18 10:54 CT chest wo con Urgent 08/08/18 13:06 US venous doppler LE Routine Hospital Course (1) Acute respiratory failure: ACUTE HYPOXIC RESPIRATORY FAILURE secondary to: Acute systolic valvular Congestive heart failure -severe mitral regurgitation; moderate to severe tricuspid regurgitation -patient has been diuresed with Lasix -lower leg edema is much improved Ultrasound lower extremity 08/08/18 1. No acute occlusive deep venous thrombosis within the right or left lower extremity. 2. Increased echogenicity about the peripheral right popliteal vein may reflect changes related to chronic nonocclusive thrombus. 3. Indeterminate cystic focus of the distal medial right thigh, 4.5 cm -continue metoprolol succinate 25 mg daily as per cardiology service -Lasix was held to prevent worsening acute kidney injury -as patient's fluid status is improved will plan on resuming bumex 1 mg q2 days starting on 08/09/18 -patient had hogue removed on 08/09/18 - no problems with voiding CHF instructions Call your Primary Care doctor if any of the following symptoms or problems start or get worse: * Shortness of breath or difficulty breathing * Wake up at night short of breath * Chest pain * Cough * Swelling of your hands, feet, or legs * More fatigued or tired with your normal activity * Palpitations - sudden fast heart beats WEIGHT * Weigh yourself every morning after using the bathroom. * Use the same scale. * Wear the same amount of clothing. * Write your weight down on a chart. * Call your Primary Care doctor if you gain more than 2-3 pounds in 1-2 days. MEDICATIONS * Use this discharge instruction sheet for medication instructions. * Take your medications at the time your doctor ordered. * Do not skip a dose of your medicines. * If you miss a dose of medicine, take it as soon as possible, but DO NOT DOUBLE A DOSE. * Read your medicine information when you get home. * Know all of the side effects of your medicine. If in doubt, ask your pharmacist * Call your Primary Care doctor's office if you have any side effects. * Be sure all of your doctors know what medicine and herbs you take (including cold, flu, and herbal medicine). Take the following with you to your follow-up doctor appointments: * Weight Chart * Medication List * List of questions Do not drink excessive alcohol, beer or wine. right sided pneumonia mild COPD exacerbation has resolved on this admission -admission with leukocytosis of 17,000 -has been on ceftriaxone and doxycycline since 08/04/18 -CXR on 08/09/18 showed improvements of infiltrates and stopped ceftriaxone and doxycline on 08/09/18 as last day (2) Atrial fibrillation, rapid: -initially on this admission with atrial fibrillation -patient was given amiodarone and metoprolol on this admission and patient has been in sinus rhythm since 08/06/18 -continue amiodarone and metoprolol beta jael -patient also was systemically anticoagulated with heparin drip and had been bridged to coumadin 3 mg daily -coumadin was held on 08/08/18 because INR 4.9, then INR increased to 7.1 by 08/09/18 and vitamin IV was given with rechecked INR on 08/09/18 as 1.8 so coumadin is resumed as low dose 2 mg daily -Discharge day INR is 1.5 Patient should follow up with primary care doctor and to have INR rechecked while on coumadin 2 mg daily (goal INR is 2 to 3) Patient to be on simvastatin 10 mg daily on discharge instead of 40 mg daily to minimize potential drug interactions with amiodarone Patient should take amiodarone 200 mg twice a day and metoprolol succinate daily for heart rate and rhythm Anemia -Hgb stable at 8.6 (3) Elevated troponin: elevated troponins secondary to possible demand ischemia from atrial fibrillation and chronic kidney disease troponin peaked at 4 and trended down as per cardiology service Her elevated troponin must be interpreted with taking her kidney function into account (4) Possible urinary tract infection: Urine cultures negative (5) Chronic kidney disease: Acute Kidney Injury on Chronic Kidney Disease stage IV -reported baseline creatinine as per previous notes that patient's creatinine usually around 2.4 -renal function generally above 2.4 during hospital stay but stabilized between 2.6 to 2.7 (6) HTN (hypertension): -BP elevated on arrival, improved after IV diltiazem -on metoprolol succinate -Continue home doses of clonidine and doxazosin -Patient to continue losartan as 50 mg daily instead of 100 mg daily at home to avoid hypotension with multiple relatively new cardiac medications of amiodarone and metoprolol but if blood pressure remains elevated when follow up with primary care doctor then losartan 100 mg daily could be resumed (7) Diabetes: Type 2 diabetes mellitus without complication and without shelter curre nt use of insulin -HbA1c 7.8 -Hold oral agents and utilize NovoLog per protocol while hospitalized -holding off glimepiride for diabetes mellitus due to renal function on disharge patient may continue to take Januvia 25 mg (sitagliptin) for diabetes mellitus. 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 Patient should get blood sugar checked at primary care doctor's office Patient to be on simvastatin 10 mg daily on discharge instead of 40 mg daily to minimize potential drug interactions with amiodarone Patient should take amiodarone 200 mg twice a day and metoprolol succinate daily for heart rate and rhythm Patient to continue losartan as 50 mg daily instead of 100 mg daily at home to avoid hypotension with multiple relatively new cardiac medications of amiodarone and metoprolol but if blood pressure remains elevated when follow up with primary care doctor then losartan 100 mg daily could be resumed Total Time Total Time Spent Total Time Spent (In Minutes): 40 minutes Total Time Includes: Examination of the Patient, Discharge Planning, Medication Reconciliation and Communication With Other Providers Discharge Plan Discharge Items Patient Disposition: Home - Self-Care Reason For Visit: AFIB RVR,RESP. DISTRESS Discharge Diagnosis: ACUTE HYPOXIC RESPIRATORY FAILURE secondary to Acute systolic valvular Congestive heart failure (severe mitral regurgitation; moderate to severe tricuspid regurgitation) - the hypoxia has resolved, atrial fibrillation initially with rapid ventricular response - the heart rate is now normal and in sinus rhythm, on coumadin for anticoagulation, Hypertension, Chronic kidney Disease, Type 2 diabetes mellitus without complication and without remote computer terminal operator current use of insulin, Right sided pneumonia - treated, Anemia Condition: Fair Discharge Goals: Improve disease control Activity: Resume your previous activity Non-emergency contact: Primary Care Provider Call non-emergency contact if: you have any medication questions Follow-up/Referrals: MICHAEL MARS [Other] Diet: Carb Consistent or DM2 and Low Sodium (2gm) Addtl Provider Instructions: Patient is discharged to home Discharge day INR is 1.5 Patient should follow up with primary care doctor and to have INR rechecked while on coumadin 2 mg daily (goal INR is 2 to 3) 08/14/2018 1:00 PM Provider Merry Ryan DO [facility] Patient is discharged with changes made to home medications including: holding off glimepiride for diabetes mellitus due to renal function patient may continue to take Januvia 25 mg (sitagliptin) for diabetes mellitus. Patient should get blood sugar checked at primary care doctor's office Patient to be on simvastatin 10 mg daily on discharge instead of 40 mg daily to minimize potential drug interactions with amiodarone Patient should take amiodarone 200 mg twice a day and metoprolol succinate daily for heart rate and rhythm Patient to continue losartan as 50 mg daily instead of 100 mg daily at home to avoid hypotension with multiple relatively new cardiac medications of amiodarone and metoprolol but if blood pressure remains elevated when follow up with primary care doctor then losartan 100 mg daily could be resumed CHF instructions Call your Primary Care doctor if any of the following symptoms or problems start or get worse: * Shortness of breath or difficulty breathing * Wake up at night short of breath * Chest pain * Cough * Swelling of your hands, feet, or legs * More fatigued or tired with your normal activity * Palpitations - sudden fast heart beats WEIGHT * Weigh yourself every morning after using the bathroom. * Use the same scale. * Wear the same amount of clothing. * Write your weight down on a chart. * Call your Primary Care doctor if you gain more than 2-3 pounds in 1-2 days. MEDICATIONS * Use this discharge instruction sheet for medication instructions. * Take your medications at the time your doctor ordered. * Do not skip a dose of your medicines. * If you miss a dose of medicine, take it as soon as possible, but DO NOT DOUBLE A DOSE. * Read your medicine information when you get home. * Know all of the side effects of your medicine. If in doubt, ask your pharmacist * Call your Primary Care doctor's office if you have any side effects. * Be sure all of your doctors know what medicine and herbs you take (including cold, flu, and herbal medicine). Take the following with you to your follow-up doctor appointments: * Weight Chart * Medication List * List of questions Do not drink excessive alcohol, beer or wine. Prescriptions: New losartan 50 mg Tablet 50 mg PO QAM 30 Days Qty: 30 RF: 0 amiodarone 200 mg Tablet 200 mg PO BIDM 30 Days Qty: 60 RF: 0 simvastatin 10 mg Tablet 10 mg PO PM 30 Days Qty: 30 RF: 0 warfarin [Coumadin] 2 mg Tablet 2 mg PO DAILY@1600 30 Days Qty: 30 RF: 0 metoprolol succinate 25 mg Tablet Extended Release 24 Hr 25 mg PO QAM 30 Days Qty: 30 RF: 0 Continued clonidine HCl 0.3 mg tablet 0.3 mg PO BIDM RF: 0 aspirin 81 mg Tablet,Delayed Release (Dr/Ec) 81 mg PO QAM RF: 0 doxazosin 4 mg tablet 4 mg PO QAM RF: 0 bumetanide 1 mg tablet 1 mg PO Q2D RF: 0 fluticasone propion-salmeterol [Advair Diskus] 100-50 mcg/dose blister with device 1 puff inhalation BID RF: 0 Januvia 25 mg tablet 25 mg PO PM RF: 0 cholecalciferol (vitamin D3) [Vitamin D3] 5,000 unit Tablet 5,000 unit PO QAM RF: 0 Discontinued simvastatin 40 mg tablet 40 mg PO PM RF: 0 glimepiride 2 mg tablet 3 mg PO QAM RF: 0 losartan 100 mg tablet 100 mg PO PM RF: 0 Stand-Alone Forms: [facility] Discharge Orders: Discharge Order (Routine); Ordered 08/10/18 Ordered By: Paco Chamorro Admission Data Admit Date/Time: 08/04/18 10:50 Attending Provider: Paco Chamorro Admit Provider: Vinod Ureña Primary Care Provider: Michael Mars Other Providers: Vinod Ureña ; Pedrito Barahona ; Home,Nursing Agency Service: Telemetry
[2018-08-10] MEDS: ASPIRIN 81 MG ECTAB PO SCH (08:31)
[2018-08-10] MEDS ORDERED: LOSARTAN POTASSIUM 50 MG TAB PO SCH (09:00)
--- NOTE | 2018-08-10 09:26 | Cardiology Progress Note ---
Date of Service August 10, 2018 Assessment & Plan (1) Acute HFrEF (heart failure with reduced ejection fraction): (2) NSTEMI (non-ST elevated myocardial infarction): (3) LBBB (left bundle branch block): (4) Mitral regurgitation: (5) Tricuspid regurgitation: (6) Pulmonary hypertension: (7) Atrial fibrillation, rapid: (8) Acute kidney injury superimposed on CKD: BP still high, but will permit this as she is 88 y/o and is on 5 BP agents, bumex, clonidine, metoprolol, losartan, doxazosin. Reduce amiodarone to 200 mg daily. Low dose coumadin. INR had been high due to illness and amiodarone. Follow up with PCP, nephro, cardio as outpt in [place]. Stable for discharge. Subjective CC: follow up shortness of breath Subjective: patient comfortable . Out of bed. Telemetry, SR. Physical Exam Constitutional: WD/WN, vitals as above Respiratory: normal respiratory effort, lungs clear to auscultation Cardiovascular: Rate/Rhythm: regular rate Heart Sounds: + murmur (2/6 SM) Extremities: no edema Gastrointestinal (Abdomen): normal bowel sounds, soft, nontender, no hepatosplenomegaly Skin: no rashes, warm and dry Neurologic: no focal deficits Results & Data Vital Signs (Past 12 Hours) Vital Signs Temp Pulse Pulse Resp BP BP Pulse Ox 08/10/18 09:15 77 170/72 H 08/10/18 08:34 85 181/83 H 95 08/10/18 07:28 36.7 C 90 18 187/79 H 94 08/10/18 07:00 85 08/10/18 04:20 36.8 C 81 16 167/84 H 92 08/09/18 23:40 36.4 C L 86 18 166/62 H 94 Laboratory Results Cardiac Enzymes 08/10/18 Range/Units 05:45 AST 17 (15-37) U/L Coagulation 08/09/18 08/10/18 Range/Units 15:17 05:45 PT 17.4 H 14.7 H (9.0-12.0) Seconds CBC 08/10/18 Range/Units 05:45 WBC 8.34 (4.8-10.8) K/uL RBC 3.21 L (4.2-5.4) M/uL Hgb 9.0 L (12.0-16.0) g/dL Hct 27.8 L (37-47) % Plt Count 267 (130-400) K/uL Neut # (Auto) 6.11 (1.4-6.5) K/uL Lymph # (Auto) 1.36 (1.2-3.4) K/uL [place] # (Auto) 0.69 H (0.11-0.59) K/uL Eos # (Auto) 0.13 (0-0.5) K/uL Baso # (Auto) 0.02 (0-0.2) K/uL Comprehensive Metabolic Panel 08/10/18 Range/Units 05:45 Sodium 139 (136-145) mmol/L Potassium 4.6 (3.5-5.1) mmol/L Chloride 106 (98-107) mmol/L Carbon Dioxide 26 (21-32) mmol/L BUN 62 H (7-18) mg/dl Creatinine 2.70 H (0.6-1.2) mg/dl Glucose 117 H (70-99) mg/dl Calcium 8.7 (8.5-10.1) mg/dl AST 17 (15-37) U/L ALT 21 (12-78) U/L Alkaline Phosphatase 63 (45-117) U/L Total Protein 5.9 L (6.4-8.2) gm/dl Albumin 2.7 L (3.4-5.0) gm/dl Intake and Output 08/09/18 08/10/18 08/10/18 22:59 06:59 14:59 Intake Total 200 / 400.25 150 / 400.25 Output Total 101 / 351 Balance 99 / 49.25 150 / 49.25 Intake: Oral 200 / 350 150 / 350 Output: Urine 100 / 100 # Bowel Movements Other: Weight 65.5 kg Medications Administered Current Inpatient Medications Acetaminophen (Tylenol) 650 mg PO Q4H PRN PRN Reason: Pain or Fever Stop: 09/03/18 12:14 Am[facility]) [facility] Stop: 09/10/18 08:59 Aspirin (Ecotrin Ectab) 81 [facility] Stop: 09/04/18 08:59 Last Admin: 08/10/18 08:31 Dose: 81 mg Documented by: Bisacodyl (Dulcolax) 10 mg AK DAILY PRN PRN Reason: Constipation Stop: 09/04/18 13:18 Bumetanide (Bumex) 1 mg PO Q48H [facility] Stop: 09/08/18 16:29 Last Admin: 08/09/18 17:47 Dose: 1 mg Documented by: Clonidine HCl (Catapress) 0.3 mg PO BIDM [facility] Stop: 09/03/18 16:59 Last Admin: 08/10/18 07:37 Dose: 0.3 mg Documented by: Dextrose (Dextrose 50%) 25 - 50 ml IV UD PRN; Protocol PRN Reason: Hypoglycemia Protocol Stop: 09/03/18 12:17 Doxazosin Mesylate (Cardura) 4 mg PO QDB [facility] Stop: 09/04/18 07:29 Last Admin: 08/10/18 07:36 Dose: 4 mg Documented by: Glucagon (Glucagen) 1 mg SQ UD PRN; Protocol PRN Reason: Hypoglycemia Protocol Stop: 09/03/18 12:17 Glucose (Dex4 Glucose) 4 - 8 tabs PO UD PRN; Protocol PRN Reason: Hypoglycemia Protocol Stop: 09/03/18 12:17 Glucose (Glucose 40%) 15 - 30 gm PO UD PRN; Protocol PRN Reason: Hypoglycemia Protocol Stop: 09/03/18 12:17 Insulin Aspart (Novolog Flexpen) 0 units SC ACHS [facility] Stop: 09/03/18 16:29 Last Admin: 08/10/18 08:29 Dose: Not Given Documented by: Losartan Potassium (Cozaar) 50 mg PO [facility] Stop: 09/09/18 08:59 Last Admin: 08/10/18 07:35 Dose: 50 mg Documented by: Magnesium Hydroxide (Milk Of Magnesia) 30 ml PO Q6H PRN PRN Reason: Constipation Stop: 09/04/18 12:50 Last Admin: 08/09/18 04:37 Dose: 30 ml Documented by: Metoprolol Succinate (Toprol Xl) [facility] Stop: 09/07/18 08:59 Last Admin: 08/10/18 07:37 Dose: 25 mg Documented by: Miscellaneous (Carbohydrates For Hypoglycemia) 15 - 30 gm PO UD PRN PRN Reason: Hypoglycemia Treatment Stop: 07/08/19 12:17 Polyethylene Glycol (Miralax Powder Packet) 17 gm PO DAILY PRN PRN Reason: Constipation Stop: 09/04/18 12:52 Last Admin: 08/05/18 15:13 Dose: 17 gm Documented by: Fluticasone/Salmeterol (Advair Diskus 100/50) 1 puffs INH BID [facility] Stop: 09/03/18 20:59 Last Admin: 08/10/18 07:35 Dose: 1 puffs Documented by: Senna/Docusate Sodium (Senokot S) 1 tab PO QAM [facility] Stop: 09/04/18 12:59 Last Admin: 08/10/18 07:36 Dose: Not Given Documented by: Simvastatin (Zocor) 10 mg PO PM [facility] Stop: 09/03/18 20:59 Last Admin: 08/09/18 21:14 Dose: 10 mg Documented by: Vitamin D (Vitamin D3) 5,000 units PO QDB [facility] Stop: 09/04/18 07:29 Last Admin: 08/10/18 07:37 Dose: 5,000 units Documented by: Warfarin Sodium (Coumadin) 2 mg PO DAILY@1600 [facility] Stop: 09/08/18 15:59 Last Admin: 08/09/18 16:54 Dose: 2 mg Documented by:
[2018-08-11] MEDS ORDERED: AMIODARONE 200 MG TAB PO SCH (09:00)
--- NOTE | 2018-08-14 09:50 | Coding Query ---
CODING QUERY To promote full compliance with coding requirements relating to patient care, provider participation is requested in all cases of invoice coder uncertainty. Please assist us with the question(s) below: Coding Question(s): There is documentation of elevated troponin beginning on H&P and thought to be demand ischemia on H&P and the Cardiology Progress Note on 08/05/18 documents NSTEMI, as does further Cardiology Progress Notes and the Hospitalist Progress Note by Dr. Partida on 08/07 documents, "Elevated troponin: possible Type 2 MT, Present on Admission, in the setting of Afib with RVR and acute systolic CHF peaked to 4, trended down EKG non specific t wave depression lateral lead", and the Discharge Summary documents, " Elevated troponin: elevated troponins secondary to possible demand ischemia from atrial fibrillation and chronic kidney disease troponin peaked at 4 and trended down as per cardiology service Her elevated troponin must be interpreted with taking her kidney function into account". Please clarify below, in your clinical opinion, regarding the elevated troponin, Demand Ischemia, possible type 2 MT and NSTEMI documentation. ( ) Elevated Troponin is possible Type 2 MT (or MT due to Demand Ischemia) ( x ) Elevated Troponin is NSTEMI ( ) Elevated Troponin is Demand Ischemia only with NO type 2 MT Physician's Response(s): Cardiology documentation is NSTEMI, given echocardiogram with hypokinesis, will clarify this as elevated troponins is NSTEMI Thank you Erika Zhu Principal Diagnosis: "that condition established after study, to be chiefly responsible for occasioning the admission of the patient to the hospital for care." Co-Existing Principal Diagnosis: "when two or more diagnoses equally meet the criteria for principal diagnosis as determined by the circumstances of admission, diagnostic work up, and/or therapy provided, and the Alphabetic Index, Tabular List, or another coding guideline does not provide sequencing direction, any one of the diagnoses may be sequenced first." "When the physician has documented what appears to be a current diagnosis in the body of the record, but has not included the diagnosis in the final diagnostic statement, the physician should be asked whether the diagnosis should be added." (Source Coding [facility] 2 QTR90. p3-4) [facility]
== END 2018-08-10 10:21 | disposition home health service (06) | DRG 280 ==
LOC: ED 08:30 → 2S 10:50 → SUATTDRO 10:50 → 2S 11:55

== ENCOUNTER 2018-09-25 17:04 | Inpatient (IN) ==
[2018-09-25 17:57] LABS: Hematocrit (blood only) 26.2 % (37-47); Hemoglobin 8.3 g/dL (12.0-16.0); Mean Corpuscular Hgb Conc 31.7 g/dL (32-36); Mean Corpuscular Volume 82.9 fL (80-100); Mean Platelet Volume 9.8 fL (7.4-10.4); Platelet Count 290 K/uL (130-400); RDW Coefficient of Variation 17.7 % (11.5-14.5); RDW Standard Deviation 53.1 fL (36.4-46.3); Red Blood Count 3.16 M/uL (4.2-5.4); White Blood Count 6.91 K/uL (4.8-10.8)
[2018-09-25 18:15] LABS: Albumin Level 2.3 gm/dl (3.4-5.0); BUN Creatinine Ratio 25.7 (10-20); Calcium 8.4 mg/dl (8.5-10.1); Creatinine Clr Calc Pharmacy 13.6 ml/min; Est GFR (African American) 17.5; Est GFR (Non-African American) 15.1; Potassium 5.2 mmol/L (3.5-5.1)
[2018-09-25 18:18] LABS: Albumin Globulin Ratio 0.7 (0.9-2); Bilirubin,Total 0.3 mg/dl (0.2-1); Globulin 3.1 gm/dl (2.5-4.0); Prothrombin Time 50.8 Seconds (9.0-12.0); Total Protein 5.4 gm/dl (6.4-8.2)
[2018-09-25 18:25] LABS: Partial Thromboplastin Ratio 2.7
[2018-09-25 18:27] LABS: Partial Thromboplastin Time 73.8 Seconds (21.0-31.0)
[2018-09-25] MEDS ORDERED: PHYTONADIONE 10 MG in SODIUM CHLORIDE 0.9% 50 ML IV ONE (18:36)
[2018-09-25 21:03] LABS: Prothrombin Time 48.1 Seconds (9.0-12.0)
[2018-09-25 21:06] LABS: Partial Thromboplastin Ratio 2.7
[2018-09-25 21:07] LABS: Partial Thromboplastin Time 72.3 Seconds (21.0-31.0)
[2018-09-25 21:09] LABS: INR 5.3 (0.9-1.1)
[2018-09-25] MEDS ORDERED: ONDANSETRON INJ 2 MG/ML 2 ML VIAL IV PRN (21:33)
[2018-09-25] MEDS ORDERED: SODIUM CHLORIDE 0.9% 1000ML 1,000 ML IV SCH (21:33)
[2018-09-25] MEDS ORDERED: ACETAMINOPHEN 325 MG TAB PO PRN (21:33)
[2018-09-25] MEDS ORDERED: NITROGLYCERIN SL 0.4 MG/TAB TAB SL PRN (21:33)
[2018-09-25] MEDS ORDERED: GLUCAGON FOR INJ 1 MG VIAL IM PRN (22:00)
[2018-09-25] MEDS ORDERED: CARBOHYDRATES FOR HYPOGLYCEMIA PO PRN (22:00)
[2018-09-25] MEDS ORDERED: GLUCOSE 40% GEL 15 GM TUBE PO PRN (22:00)
[2018-09-25] MEDS ORDERED: GLUCOSE 10 TABS/TUBE PO PRN (22:00)
[2018-09-25] MEDS: FAMOTIDINE 20 MG in SYRINGE 3 ML IV SCH (22:05)
[2018-09-25] MEDS: INSULIN ASPART 100 UNITS/ML 3 ML PEN SC SCH (22:52)
[2018-09-25 23:09] LABS: Hematocrit (blood only) 23.6 % (37-47); Hemoglobin 7.5 g/dL (12.0-16.0)
[2018-09-25] MEDS ORDERED: ACETAMINOPHEN 500 MG TAB PO STA (23:49)
[2018-09-25] MEDS ORDERED: SODIUM CHLORIDE 0.9% 250 ML IV PRN (23:49)
--- NOTE | 2018-09-25 23:54 | Emergency Department Note ---
Entered by Elidia Hernandez acting as a scribe for Jamal Evans MD History of Present Illness General Chief complaint: Rectal Bleed Stated complaint: BLEEDING FROM RECTUM Time Seen by Provider: 09/25/18 18:08 Source: patient and family History of Present Illness Onset (ago): day(s) 2 Location: pelvis (rectal bleeding ) Pain Consistency: + other (episode ) Maximum Pain Intensity: 0 Relieved By: + none Exacerbated By: + none Associated symptoms: + other (hemorrhoids) Treatments prior to arrival: none The patient is a 88 year old female who presents to the ED with complaints of an episode of rectal bleeding for 2 days now. The patient states that her rectal bleeding is bright red. She states that she has very large hemorrhoids that are dripping blood. The patients daughter states that the patient was recently in the ED for shortness of breath and was diagnosed with A-fib. She notes that the patient was prescribed 3 different medications that she stopped taking because they made her feel sick. The patients daughter states that she saw her PCP in [place] and was prescribed Pradaxa, 75mg twice a day. She reports that the patient has been taking the medication for 2 weeks. The patient denies any other bleeding. The patients daughter states that the patient was on Coumadin and Eliquis but they took the patient off because they said it was not working. The patients daughter states that the patient took her last dose of Coumadin about a month ago. The patient states that the swelling in her legs is normal. The patient states that her red blood cell count was 8.4 about 2 weeks ago and she was placed on iron. The patients daughter states that the patient is visiting for 2 months. Home Medications Home Medications Medication Instructions Recorded Confirmed Type Januvia 25 mg PO QDD 08/04/18 09/25/18 History bumetanide 1 mg PO Q2D 08/04/18 09/25/18 History cholecalciferol (vitamin D3) 5,000 unit PO QDB 08/04/18 09/25/18 History [Vitamin D3] clonidine HCl 0.3 mg PO BIDM 08/04/18 09/25/18 History doxazosin 4 mg PO QDB 08/04/18 09/25/18 History Vitafusion 1 tab PO QDD 09/25/18 09/25/18 History Vitafusion 2 tab PO QDB 09/25/18 09/25/18 History dabigatran etexilate [Pradaxa] 75 mg PO BIDM 09/25/18 09/25/18 History glimepiride 2 mg PO QDB 09/25/18 09/25/18 History loratadine [Claritin] 10 mg PO QDB 09/25/18 09/25/18 History losartan 50 mg PO QDB 09/25/18 09/25/18 History metoprolol succinate 25 mg PO QDB 09/25/18 09/25/18 History simvastatin 10 mg PO QDD 09/25/18 09/25/18 History Allergies Allergy/AdvReac Type Severity Reaction Status Date / Time No Known Allergies Allergy Verified 09/25/18 17:34 Past Med/Surg History Medical History Chronic kidney disease (Chronic) History of hysterectomy (Chronic) Lower extremity edema (Chronic) HTN (hypertension) (Chronic) COPD (chronic obstructive pulmonary disease) (Chronic) Diabetes (Chronic) Family History Father Emphysema lung Mother Stroke Social History Preferred Language: Wolof Communication Ability: Effective Jig Builder Helper Required: No Beliefs That Will Affect Care: None marital status: / Current Living Situation: Family current occupational status: retired Feels Safe at Home: Yes Safety Concerns: Feels Safe At This Time Smoking Status: Never smoker Hx Alcohol Use: No Hx Substance Use: No Review of Systems See HPI for pertinent positives & negatives. and A total of 10 systems reviewed and were otherwise negative Physical Exam Vital Signs Vital Signs - 24 hr 09/25/18 17:13 09/25/18 18:10 09/25/18 18:58 Temperature 36.7 C Temperature Source Oral Sepsis Recent Fever Within 48 Hours No Sepsis New/Unexplained Change in Mental Status No Sepsis Action Taken by Nursing No Action Required Pulse Rate - Lying 62 Pulse Rate - Sitting 60 Pulse Rate - Standing 58 L Pulse Rate 60 Pulse Rate [Right Finger] 58 L Respiratory Rate 18 18 Respiratory Effort / Characteristics Non-Labored Spontaneous Respiratory Depth Normal Respiratory Pattern Regular Blood Pressure - Lying 181/72 H Blood Pressure - Sitting 160/76 H Blood Pressure- Standing 150/76 H Blood Pressure 163/66 H Blood Pressure [Right Arm] 181/72 H Blood Pressure Mean 98 Blood Pressure Mean [Right Arm] 108 Blood Pressure Position Sitting Pulse Oximetry 99 98 Oxygen Delivery Method Room Air GENERAL: Patient is in no acute distress. HEENT: No acute trauma, normocephalic atraumatic, mucous membranes moist, no nasal congestion, no scleral icterus. NECK: No stridor, no adenopathy, no meningismus, trachea is midline. LUNGS: Clear to auscultation bilaterally, no wheeze, no rhonchi, breath sounds equal. HEART: Without murmurs gallops or rubs, regular rate and rhythm. ABDOMEN: Soft, nontender, bowel sounds positive, no hernias, no peritonitis. EXTREMITIES: Moderate bilateral pedal edema, full range of motion of all the joints without pain or difficulty, no signs for acute trauma. NEUROLOGIC: Oriented x 3, no acute motor or sensory deficits, no focal weakness. SKIN: No rash, no jaundice, no diaphoresis. RECTAL: Small hemorrhoids noted, no active bleeding, brown stool. Course 1812: Past medical records reviewed. The patient was evaluated in room B9. A complete history and physical exam was performed. 1900: I discussed the patients case with MARVIN Smith. she agreed to admit the patient for further management. Consultations Consultation #1: I discussed the patients case with MARVIN Smith. she agreed to admit the patient for further management. Time: 19:00 Administered Medications Clonidine HCl (Catapress) 0.3 mg PO BIDM [facility] Stop: 10/26/18 07:59 Last Admin: 09/26/18 08:24 Dose: 0.3 mg Documented by: [id number] Dextrose (Dextrose 50%) 25 - 50 ml IV UD PRN; Protocol PRN Reason: Hypoglycemia Protocol Stop: 10/25/18 21:59 Last Admin: 09/26/18 04:50 Dose: 25 ml Documented by: [id number] Admin: 09/26/18 01:18 Dose: 25 ml Documented by: [id number] Doxazosin Mesylate (Cardura) 4 mg PO QDB [facility] Stop: 10/26/18 07:29 Last Admin: 09/26/18 08:24 Dose: 4 mg Documented by: [id number] Hydralazine HCl (Apresoline) 10 mg PO Q6H PRN PRN Reason: Hypertension Stop: 10/26/18 05:29 Last Admin: 09/26/18 08:23 Dose: 10 mg Documented by: [id number] Famotidine 20 mg/ Syringe 5 mls @ 2.5 mls/min IV BID [facility] Stop: 10/25/18 21:32 Last Admin: 09/26/18 08:41 Dose: Not Given Documented by: [id number] Admin: 09/25/18 22:05 Dose: 2.5 mls/min Documented by: [id number] Dextrose/Sodium Chloride (D5w And Nss) 1,000 mls @ 40 mls/hr IV .Q24H [facility] Stop: 10/26/18 05:14 Last Admin: 09/26/18 05:32 Dose: 40 mls/hr Documented by: [id number] Insulin Aspart (Novolog Flexpen) 0 units SC ACHS [facility] Stop: 10/25/18 21:59 Last Admin: 09/26/18 08:02 Dose: Not Given Documented by: [id number] Admin: 09/25/18 22:52 Dose: Not Given Documented by: [id number] Cosigned by: [id number] Loratadine (Claritin) 10 mg PO QDB [facility] Stop: 10/26/18 07:29 Last Admin: 09/26/18 08:24 Dose: 10 mg Documented by: [id number] Losartan Potassium (Cozaar) 50 mg PO QDB [facility] Stop: 10/26/18 07:29 Last Admin: 09/26/18 08:24 Dose: 50 mg Documented by: [id number] Metoprolol Succinate (Toprol Xl) 25 mg PO QDB [facility] Stop: 10/26/18 07:29 Last Admin: 09/26/18 08:24 Dose: 25 mg Documented by: [id number] Vitamin D (Vitamin D3) 5,000 units PO QDB [facility] Stop: 10/26/18 07:29 Last Admin: 09/26/18 08:23 Dose: 5,000 units Documented by: [id number] Discontinued Medications Acetaminophen (Tylenol) 500 mg PO NOW STA Stop: 09/25/18 23:50 Last Admin: 09/26/18 00:29 Dose: 500 mg Documented by: [id number] Furosemide (Lasix) 40 mg IV TODAY@0000 [facility] Stop: 09/26/18 04:00 Last Admin: 09/26/18 04:55 Dose: 40 mg Documented by: [id number] Hydralazine HCl (Hydralazine Hcl) 5 mg IV NOW ONE Stop: 09/26/18 01:07 Last Admin: 09/26/18 01:09 Dose: 5 mg Documented by: [id number] Phytonadione 10 mg/ Sodium (Chloride) 51 mls @ 102 mls/hr IV ONE ONE Stop: 09/25/18 19:05 Last Infusion: 09/25/18 19:28 Dose: 0 mls/hr Documented by: [id number] Admin: 09/25/18 18:57 Dose: 102 mls/hr Documented by: [id number] Sodium Chloride (Nss 1000ml) 1,000 mls @ 50 mls/hr IV .Q20H [facility] Stop: 10/25/18 21:32 Last Infusion: 09/26/18 05:13 Dose: 0 mls/hr Documented by: [id number] Infusion: 09/26/18 01:07 Dose: 0 mls/hr Documented by: [id number] Admin: 09/25/18 22:03 Dose: 50 mls/hr Documented by: [id number] Idarucizumab 5 gm/ Syringe 100 mls @ 10 mls/min IV ONE ONE; Protocol Stop: 09/26/18 00:24 Last Admin: 09/26/18 00:15 Dose: 10 mls/min Documented by: [id number] Metoprolol Succinate (Toprol Xl) 12.5 mg PO ONE ONE Stop: 09/26/18 11:31 Last Admin: 09/26/18 11:45 Dose: 12.5 mg Documented by: [id number] Sodium Polystyrene Sulfonate (Kayexalate) 15 gm PO ONE ONE Stop: 09/26/18 00:01 Last Admin: 09/26/18 00:31 Dose: 15 gm Documented by: [id number] Medical Decision Making Differential Diagnosis Differential diagnoses include coagulopathy, anemia, liver failure, medication reaction, GI bleeding, hemorrhoid bleeding. Medical Records Attestation: I reviewed the patient's medical records. Home Medications Current Medication List: was personally reviewed by me Laboratory Data Attestation: I reviewed the patient's lab results. Result diagrams: 09/26/18 10:38 09/26/18 05:36 Lab Results 09/25/18 09/25/18 09/25/18 Range/Units 17:49 17:49 17:49 WBC 6.91 (4.8-10.8) K/uL RBC 3.16 L (4.2-5.4) M/uL Hgb 8.3 L (12.0-16.0) g/dL Hct 26.2 L (37-47) % MCV 82.9 (80-100) fL MCH 26.3 (25-34) pg MCHC 31.7 L (32-36) g/dL RDW Std Deviation 53.1 H (36.4-46.3) fL RDW Coeff of Nba 17.7 H (11.5-14.5) % Plt Count 290 (130-400) K/uL MPV 9.8 (7.4-10.4) fL PT 50.8 H (9.0-12.0) Seconds INR 5.6 H* (0.9-1.1) APTT 73.8 H* (21.0-31.0) Seconds PTT Ratio 2.7 Sodium 138 (136-145) mmol/L Potassium 5.2 H (3.5-5.1) mmol/L Chloride 109 H (98-107) mmol/L Carbon Dioxide 24 (21-32) mmol/L Anion Gap 6.0 (3-11) BUN 70 H (7-18) mg/dl Creatinine 2.74 H (0.6-1.2) mg/dl Est Cr Clr Drug Dosing 13.6 ml/min Est GFR ( Amer) 17.5 Est GFR (Non-Af Amer) 15.1 BUN/Creatinine Ratio 25.7 H (10-20) Glucose 112 H (70-99) mg/dl Calcium 8.4 L (8.5-10.1) mg/dl Total Bilirubin 0.3 (0.2-1) mg/dl AST 29 (15-37) U/L ALT 47 (12-78) U/L Alkaline Phosphatase 82 (45-117) U/L Total Protein 5.4 L (6.4-8.2) gm/dl Albumin 2.3 L (3.4-5.0) gm/dl Globulin 3.1 (2.5-4.0) gm/dl Albumin/Globulin Ratio 0.7 L (0.9-2) POC Stool Occult Blood (Negative) Blood Type Antibody Screen Crossmatch 09/25/18 09/25/18 Range/Units 17:50 18:45 WBC (4.8-10.8) K/uL RBC (4.2-5.4) M/uL Hgb (12.0-16.0) g/dL Hct (37-47) % MCV (80-100) fL MCH (25-34) pg MCHC (32-36) g/dL RDW Std Deviation (36.4-46.3) fL RDW Coeff of Nba (11.5-14.5) % Plt Count (130-400) K/uL MPV (7.4-10.4) fL PT (9.0-12.0) Seconds INR (0.9-1.1) APTT (21.0-31.0) Seconds PTT Ratio Sodium (136-145) mmol/L Potassium (3.5-5.1) mmol/L Chloride (98-107) mmol/L Carbon Dioxide (21-32) mmol/L Anion Gap (3-11) BUN (7-18) mg/dl Creatinine (0.6-1.2) mg/dl Est Cr Clr Drug Dosing ml/min Est GFR ( Amer) Est GFR (Non-Af Amer) BUN/Creatinine Ratio (10-20) Glucose (70-99) mg/dl Calcium (8.5-10.1) mg/dl Total Bilirubin (0.2-1) mg/dl AST (15-37) U/L ALT (12-78) U/L Alkaline Phosphatase (45-117) U/L Total Protein (6.4-8.2) gm/dl Albumin (3.4-5.0) gm/dl Globulin (2.5-4.0) gm/dl Albumin/Globulin Ratio (0.9-2) POC Stool Occult Blood Positive A (Negative) Blood Type A Positive Antibody Screen NEGATIVE Crossmatch See Detail Blood Pressure Blood Pressure Findings: Elevated blood pressure Blood Pressure Disposition: further management by hospitalist MDM Narrative There is no leukocytosis. Patient is anemic with a hemoglobin of 8.3. She has been running low as of late though. No concerning coagulopathy. INR is quite elevated at 5.6, the cause for this is unclear as the patient is no longer using Coumadin. Renal panel testing shows a higher creatinine, this is baseline for the patient. No liver enzyme elevation. Blood type was A positive. On exam, the patient did have some blood on her depends, there was no active bleeding on my exam. Stool was brown in color. The patient is not hypoxic, she is not hypotensive. She presents with 2 days of bright red blood per rectum, likely from hemorrhoidal bleeding. She is on Pradaxa. She also is quite coagulopathic with an INR above 5, the cause for this is unclear. With the coagulopathy, the Pradaxa use, the anemia and the blood noted rectally over the last few days, I did think a hospital stay was warranted. Patient received 10 mg of IV vitamin K to help correct her higher INR value. I spoke to the patient and her daughter, I spoke with case assembler. The on-call hospitalist was consulted. Impression & Plan Rectal bleeding, Anemia, Coagulopathy Discharge Plan Visit Data *Final* Discharge Date/Time: 09/25/18 21:09 Chief Complaint: Rectal Bleed Stated Complaint: BLEEDING FROM RECTUM ED Provider: Jamal Evans Discharge Problem: Rectal bleeding, Anemia, Coagulopathy Patient Disposition: Admitted As Inpatient Discharge Instructions Interventions: ED Discharge Assessment Last Done: 09/25/18 21:09 Discharge Problem: Anemia Qualifiers: Anemia type: unspecified type Qualified Code(s): D64.9 - Anemia, unspecified The [email or web address]'s documentation has been prepared under my direction and personally reviewed by me in its entirety. I confirm that the note above accurately reflects all work, treatment, procedures, and medical decision making performed by me.
[2018-09-26] MEDS ORDERED: FUROSEMIDE 40 MG/4 ML VIAL IV SCH
[2018-09-26] MEDS ORDERED: SODIUM POLYSTYRENE SULFONATE 15G/60ML SUSP PO ONE
[2018-09-26] MEDS ORDERED: IDARUCIZUMAB IV ONE (00:15)
[2018-09-26] MEDS ORDERED: HydrALAZINE HCL 20 MG/ML VIAL IV ONE (01:06)
[2018-09-26] MEDS: DEXTROSE 50% 50 ML SYRINGE IV PRN ×2 (01:18→04:50)
--- NOTE | 2018-09-26 03:12 | History and Physical Report ---
DATE OF ADMISSION: 09/25/2018 CHIEF COMPLAINT: Rectal bleed. HISTORY OF PRESENT ILLNESS: This 88-year-old female with past medical history significant for type 2 diabetes, AFib, severe mitral regurgitation, severe tricuspid regurgitation, hypertension, chronic kidney disease stage IV, anemia of chronic kidney disease , presents with rectal bleed. The patient is from [facility]. She is currently staying with her daughter since last 2 months. She was seen in the hospital in July with rapid AFib and acute respiratory failure secondary to acute systolic and diastolic CHF. She was improved and also at that time she was treated for pneumonia. She was discharged on Coumadin, amiodarone and Bumex every other day. As per daughter, the Coumadin was stopped over a month ago because it was difficult to control her INR as they were fluctuating and she was kept on Eliquis for 1 week, but after that her it security analyst in [place] recommended Pradaxa, which she is on.Since last Monday she noticed some blood per rectum. Yesterday, it got a little more worse. She had some drops of blood dropping from her rectum. It happened today too and it was not stopping, so that she came to the ER. Hemoglobin stable at 8.3. Hemoccult was positive. Her INR was 5.6 and APTT was 73.8 and PT was 15.8. She was given IV vitamin K in the ER. Currently resting comfortably. Denies any abdominal pain. Denies any chest pain, no shortness of breath, no cough, no nausea, no vomiting, no headache, no blurred vision, no earache, no runny nose, no sore throat, no difficulty swallowing. Appetite is good. She ambulates with the help of cane at home. Normal bladder movements. No burning micturition, no blood in the urine. She has some swelling in the legs, no rash. Currently, she is resting comfortably and hemodynamically stable. ALLERGIES: No known drug allergies. PAST MEDICAL HISTORY: As mentioned above. PAST SURGICAL HISTORY: History of hysterectomy. FAMILY HISTORY: Father had emphysema. Mother had stroke. SOCIAL HISTORY: Currently lives with her daughter. No smoking history. No alcohol history. No drug use. REVIEW OF SYSTEMS: As per HPI. Rest of the systems negative. PHYSICAL EXAMINATION: GENERAL: The patient is old and frail, not in acute distress. VITAL SIGNS: Temperature 36.7, pulse 58, respiratory rate 18, blood pressure 181/72, oxygen 98% on room air. HEENT: No pallor, no icterus. Pupils equal, round, and reactive to light. NECK: No JVD, no neck masses, no carotid bruits. CARDIOVASCULAR: S1, S2 heard, regular rate and rhythm, diastolic murmur in the mitral area. RESPIRATORY SYSTEM: Clear to auscultation bilaterally. No wheezing, no crackles. ABDOMEN: Soft, bowel sounds present, nontender. No distention. CENTRAL NERVOUS SYSTEM: Cranial nerves II-XII grossly intact. Nonfocal. EXTREMITIES: Mild pedal edema present, no erythema seen. LABORATORIES: WBC 6.9, hemoglobin 8.3, hematocrit 26.2, platelets 290. PT 50.8, INR 5.6, APTT 73.8, PTT ratio 2.7. Sodium 138, potassium 5.2, chloride 109, bicarbonate 24, BUN 70, creatinine 2.7, serum glucose 112, calcium 8.4, total bilirubin 0.3, AST 22, ALT 47, alkaline phosphatase 82, total protein 5.4, albumin 2.3, globulin 3.1. Point of care stool occult blood positive. ASSESSMENT AND PLAN: This is an 88-year-old female who presents with rectal bleed. 1. Rectal bleed: The patient is currently on Pradaxa for atrial fibrillation. The patient also has chronic kidney disease stage IV. Hemoccult positive, but hemoglobin is close to her baseline of 8.6-9, hemoglobin is 8.3. We will follow hemoglobin and hematocrit q.6 hours. INR is 5.6, although she stopped Coumadin about a month ago. IV vitamin K was given in the Emergency Room. I talked to Dr. Torres and recommended repeating the PT, INR, APTT and if it is still elevated, plan to give antidote to Pradaxa as its levels may be high because of CKD . We will follow hemoglobin and hematocrit q.6 hours and transfuse hemoglobin if it drops less than 8 .. Currently on IV Pepcid b.i.d. Consult gastrointestinal in the morning. Daughter does not want any procedure unless necessary. Monitor in the telemetry. 2. Atrial fibrillation: No longer on amiodarone at this time. The patient is on Toprol-XL. Holding Pradaxa as above and consult Cardiology for further recommendation regarding the anticoagulation. 3. elevated INR and APTT. Etiology unclear. Consulting heme/onco. received vitamin K. Will follow repeat levels. 4. Chronic systolic and diastolic congestive heart failure, ejection fraction of 30%-35%, severe tricuspid regurgitation and severe mitral regurgitation: On Bumex every other day, which we will continue. We will follow daily weights and intakes and outputs and watch for volume overload. The patient on gentle fluids as the patient is going to be n.p.o. Stop the fluids if the patient for any volume overload. 5. Chronic kidney disease stage IV: Baseline creatinine around 2.6-2.7, presented with creatinine of 2.7. Follow the laboratories. 6. Hyperkalemia: Potassium of 5.2. We will give Kayexalate. However, we will hold the losartan, may consider consulting nephrology while in the hospital. 7. Hypertension: On clonidine, diuretics, metoprolol. Holding the losartan. Elevated. Hydralazine po prn. We will follow the blood pressure. 8. Diabetes: Holding the glimepiride and Januvia and place her on insulin sliding scale. Follow hemoglobin A1c levels. 9. Deep venous thrombosis prophylaxis, sequential compression devices. DISPOSITION: Close monitoring in the telemetry floor. CODE STATUS: Level 1 full code only if there is a chance of recovery. Physical therapy and occupational therapy prior to discharge. Social Service to help with discharge planning. Addendum: Hb dropped to 7.5. Got one unit of prbc. Hypoglycemia . Shaky and Blood sugars was 70. Got dextrose. Changed fluids to D5NS@40ml/hr. MTDD
[2018-09-26] MEDS ORDERED: D5W AND NSS 1,000 ML IV SCH (05:15)
[2018-09-26] MEDS ORDERED: HydrALAZINE 10 MG TAB PO PRN (05:18)
[2018-09-26 05:50] LABS: Basophils # (auto) 0.03 K/uL (0-0.2); Basophils % (auto) 0.3 %; Eosinophils # (auto) 0.15 K/uL (0-0.5); Eosinophils % (auto) 1.3 %; Hematocrit (blood only) 33.6 % (37-47); Hemoglobin 10.7 g/dL (12.0-16.0); Immature Granulocytes # (auto) 0.04 K/uL (0.00-0.02); Immature Granulocytes % (auto) 0.3 %; Lymphocytes # (auto) 1.38 K/uL (1.2-3.4); Lymphocytes % (auto) 11.8 %; Mean Corpuscular Hgb Conc 31.8 g/dL (32-36); Mean Corpuscular Volume 84.4 fL (80-100); Mean Platelet Volume 10.2 fL (7.4-10.4); Monocytes % (auto) 8.5 %; Neutrophils # (auto) 9.12 K/uL (1.4-6.5); Neutrophils % (auto) 77.8 %; Platelet Count 286 K/uL (130-400); RDW Coefficient of Variation 17.1 % (11.5-14.5); RDW Standard Deviation 52.5 fL (36.4-46.3); Red Blood Count 3.98 M/uL (4.2-5.4); White Blood Count 11.72 K/uL (4.8-10.8)
[2018-09-26 06:00] LABS: INR 1.1 (0.9-1.1); Partial Thromboplastin Time 27.9 Seconds (21.0-31.0); Prothrombin Time 11.1 Seconds (9.0-12.0)
[2018-09-26 06:03] LABS: Estimated Average Glucose 148 mg/dl; Hemoglobin A1C 6.8 % (4.5-5.6)
[2018-09-26 06:19] LABS: BUN Creatinine Ratio 23.9 (10-20); Calcium 8.2 mg/dl (8.5-10.1); Creatinine Clr Calc Pharmacy 14.3 ml/min; Est GFR (African American) 18.8; Est GFR (Non-African American) 16.2; Magnesium 2.2 mg/dl (1.8-2.4); Potassium 4.5 mmol/L (3.5-5.1)
[2018-09-26] MEDS ORDERED: LOSARTAN POTASSIUM 50 MG TAB PO SCH (07:30)
[2018-09-26] MEDS ORDERED: LORATADINE 10 MG TAB PO SCH (07:30)
[2018-09-26] MEDS ORDERED: CHOLECALCIFEROL 1,000 UNITS TAB PO SCH (07:30)
[2018-09-26] MEDS ORDERED: DOXAZosin MESYLATE 4 MG TAB PO SCH (07:30)
[2018-09-26] MEDS ORDERED: METOPROLOL SUCC 25MG EXT REL TAB PO SCH (07:30)
[2018-09-26] MEDS: INSULIN ASPART 100 UNITS/ML 3 ML PEN SC SCH ×2 (08:02→12:16)
[2018-09-26] MEDS: FAMOTIDINE 20 MG in SYRINGE 3 ML IV SCH (08:41)
--- NOTE | 2018-09-26 08:55 | Gastrointestinal Consultation ---
Date of Consultation September 26, 2018 Assessment & Plan (1) Rectal bleeding: Bleeding likely secondary to coagulopathy. This has been corrected and the patient has had no further bleeding since admission. Recent colonoscopy in the past 2 years showed only hemorrhoids. Patient and family decline further endoscopic evaluation unless bleeding recurs. Would like a hemorrhoid cream. Recommend a once daily fiber supplement, such as Metamucil. Would monitor blood counts and transfuse further, if needed. Please call with questions. Supervising Physician Co-Signing Physician Notes Patient was seen and examined with Norma Zaidi PA-C whose note reflects our findings and plan. History of Present Illness Reason for Consultation: Rectal bleed Requesting Physician: Inocente Partida MD Attending Physician: Inocente Partida MD History of Present Illness 88 year old female with a hx of CKD-IV, HTN, COPD, DM, and recent diagnosis of Afib - initially placed on coumadin, then eliquis, and now pradaxa. She is from [place] and visiting family in the area. Admitted with rectal bleeding, which started Monday. BMs are 2-3 times daily - patient reports toilet water is red with BMs and there are "drips" of blood following a BM. Rectal exam in ED notes small hemorrhoids with no active bleeding, and brown colored stool. Denies any abdominal pain or upper GI symptoms. Daughter with her reports last colonoscopy was about 2 years ago in [place], and only hemorrhoids were found. No family hx of colon polyps, colon cancer or IBD. On admission, Hgb was 8.3 (her baseline per daughter). INR was 5.6. BUN was 70 with a creat of 2.74. Hgb fell to 7.5 and she was given 1 unit of pRBCs. This morning her hgb is 10.7. Coagulopathy has been corrected, and INR is 1.1 today. She had one BM yesterday and one thus far today. No blood noted in either BM. Allergies Allergy/AdvReac Type Severity Reaction Status Date / Time No Known Allergies Allergy Verified 09/25/18 17:34 Home Medications Home Medications Medication Instructions Recorded Confirmed Type Januvia 25 mg PO QDD 08/04/18 09/25/18 History bumetanide 1 mg PO Q2D 08/04/18 09/25/18 History cholecalciferol (vitamin D3) 5,000 unit PO QDB 08/04/18 09/25/18 History [Vitamin D3] clonidine HCl 0.3 mg PO BIDM 08/04/18 09/25/18 History doxazosin 4 mg PO QDB 08/04/18 09/25/18 History Vitafusion 1 tab PO QDD 09/25/18 09/25/18 History Vitafusion 2 tab PO QDB 09/25/18 09/25/18 History glimepiride 2 mg PO QDB 09/25/18 09/25/18 History loratadine [Claritin] 10 mg PO QDB 09/25/18 09/25/18 History losartan 50 mg PO QDB 09/25/18 09/25/18 History simvastatin 10 mg PO QDD 09/25/18 09/25/18 History hydrocortisone [Proctosol HC] 1 applic EXT BID PRN 30 Days #1 09/26/18 Rx tube metoprolol succinate 37.5 mg PO QDB 30 Days #45 tab 09/26/18 Rx Patient History Medical History Chronic kidney disease (Chronic) History of hysterectomy (Chronic) Lower extremity edema (Chronic) HTN (hypertension) (Chronic) COPD (chronic obstructive pulmonary disease) (Chronic) Diabetes (Chronic) Family History Father Emphysema lung Mother Stroke Social History Preferred Language: Czech Communication Ability: Effective Sales Account Associate Required: No Beliefs That Will Affect Care: None marital status: / Current Living Situation: Family current occupational status: retired Feels Safe at Home: Yes Safety Concerns: Feels Safe At This Time Smoking Status: Never smoker Hx Alcohol Use: No Hx Substance Use: No Review of Systems Constitutional: no fever, no chills, no fatigue and no weight loss Eyes: no eye pain and no worsening vision Ear, Nose, Mouth, Throat: no ear pain, no hearing loss, no nasal congestion and no sore throat Respiratory: + dyspnea on exertion; no cough, no chest congestion and no wheezing Cardiovascular: + dyspnea on exertion; no chest pain Gastrointestinal: as per Subjective / HPI Genitourinary: no dysuria and no urinary incontinence Musculoskeletal: no joint pain Integumentary: no rash and no pruritus Neurologic: no tingling, no numbness and no dizziness Psychiatric: no suicidal ideation and no confusion Endocrine: no cold intolerance and no heat intolerance Allergy / Immunological: no problem reported Physical Exam Constitutional: WD/WN, vitals as above healthy appearing; no acute distress Eyes: + anicteric sclerae ENMT: external ear and nose normal, oropharynx normal Neck: normal visual inspection Respiratory: normal respiratory effort, lungs clear to auscultation Cardiovascular: Heart Sounds: no murmur irregular rhythm Gastrointestinal (Abdomen): Inspection/Auscultation: + hyperactive bowel sounds; abdomen not distended Percussion/Palpation: abdomen soft; abdomen nontender Musculoskeletal: Head/Neck/Chest: normocephalic and head atraumatic Skin: no rashes, warm and dry Neurologic: moves all extremities; no focal motor deficits Psychiatric: Orientation: alert and oriented x 3 Results & Data Vital Signs (Past 12 Hours) Vital Signs Temp Pulse Pulse Resp BP BP Pulse Ox 09/26/18 06:53 36.7 C 83 20 185/81 H 100 09/26/18 04:55 36.5 C 90 22 188/84 H 92 09/26/18 04:08 36.7 C 79 18 188/78 H 92 09/26/18 03:58 36.6 C 79 18 192/85 H 91 09/26/18 03:08 36.5 C 87 22 193/89 H 92 09/26/18 02:08 36.5 C 72 20 185/75 H 95 09/26/18 01:38 36.6 C 76 16 182/76 H 97 09/26/18 01:23 36.6 C 70 16 175/81 H 96 09/26/18 01:07 36.5 C 67 16 191/75 H 96 09/25/18 23:33 36.6 C 59 L 16 165/62 H 99 09/25/18 22:56 60 09/25/18 21:33 09/25/18 21:20 36.6 C 77 78 20 171/66 H 98 Pulse Ox 09/26/18 06:53 09/26/18 04:55 09/26/18 04:08 09/26/18 03:58 09/26/18 03:08 09/26/18 02:08 09/26/18 01:38 09/26/18 01:23 09/26/18 01:07 09/25/18 23:33 09/25/18 22:56 09/25/18 21:33 98 09/25/18 21:20 Laboratory Results - last 24 hr 09/25/18 09/25/18 09/25/18 17:49 17:49 17:49 WBC 6.91 RBC 3.16 L Hgb 8.3 L Hct 26.2 L MCV 82.9 MCH 26.3 MCHC 31.7 L RDW Std Deviation 53.1 H RDW Coeff of Nba 17.7 H Plt Count 290 MPV 9.8 Immature Gran % (Auto) Neut % (Auto) Lymph % (Auto) [place] % (Auto) Eos % (Auto) Baso % (Auto) Immature Gran # (Auto) Neut # (Auto) Lymph # (Auto) [place] # (Auto) Eos # (Auto) Baso # (Auto) PT 50.8 H INR 5.6 H* APTT 73.8 H* PTT Ratio 2.7 Sodium 138 Potassium 5.2 H Chloride 109 H Carbon Dioxide 24 Anion Gap 6.0 BUN 70 H Creatinine 2.74 H Est Cr Clr Drug Dosing 13.6 Est GFR ( Amer) 17.5 Est GFR (Non-Af Amer) 15.1 BUN/Creatinine Ratio 25.7 H Glucose 112 H POC Glucose Estimat Average Glucose Hemoglobin A1c Calcium 8.4 L Magnesium Total Bilirubin 0.3 AST 29 ALT 47 Alkaline Phosphatase 82 Total Protein 5.4 L Albumin 2.3 L Globulin 3.1 Albumin/Globulin Ratio 0.7 L POC Stool Occult Blood Blood Type Antibody Screen Crossmatch 09/25/18 09/25/18 09/25/18 17:50 18:45 20:35 WBC RBC Hgb Hct MCV MCH MCHC RDW Std Deviation RDW Coeff of Nba Plt Count MPV Immature Gran % (Auto) Neut % (Auto) Lymph % (Auto) [place] % (Auto) Eos % (Auto) Baso % (Auto) Immature Gran # (Auto) Neut # (Auto) Lymph # (Auto) [place] # (Auto) Eos # (Auto) Baso # (Auto) PT 48.1 H INR 5.3 H APTT 72.3 H* PTT Ratio 2.7 Sodium Potassium Chloride Carbon Dioxide Anion Gap BUN Creatinine Est Cr Clr Drug Dosing Est GFR ( Amer) Est GFR (Non-Af Amer) BUN/Creatinine Ratio Glucose POC Glucose Estimat Average Glucose Hemoglobin A1c Calcium Magnesium Total Bilirubin AST ALT Alkaline Phosphatase Total Protein Albumin Globulin Albumin/Globulin Ratio POC Stool Occult Blood Positive A Blood Type A Positive Antibody Screen NEGATIVE Crossmatch See Detail 09/25/18 09/25/18 09/26/18 21:46 22:53 01:15 WBC RBC Hgb 7.5 L Hct 23.6 L MCV MCH MCHC RDW Std Deviation RDW Coeff of Nba Plt Count MPV Immature Gran % (Auto) Neut % (Auto) Lymph % (Auto) [place] % (Auto) Eos % (Auto) Baso % (Auto) Immature Gran # (Auto) Neut # (Auto) Lymph # (Auto) [place] # (Auto) Eos # (Auto) Baso # (Auto) PT INR APTT PTT Ratio Sodium Potassium Chloride Carbon Dioxide Anion Gap BUN Creatinine Est Cr Clr Drug Dosing Est GFR ( Amer) Est GFR (Non-Af Amer) BUN/Creatinine Ratio Glucose POC Glucose 84 69 L* Estimat Average Glucose Hemoglobin A1c Calcium Magnesium Total Bilirubin AST ALT Alkaline Phosphatase Total Protein Albumin Globulin Albumin/Globulin Ratio POC Stool Occult Blood Blood Type Antibody Screen Crossmatch 09/26/18 09/26/18 09/26/18 01:32 04:42 05:05 WBC RBC Hgb Hct MCV MCH MCHC RDW Std Deviation RDW Coeff of Nba Plt Count MPV Immature Gran % (Auto) Neut % (Auto) Lymph % (Auto) [place] % (Auto) Eos % (Auto) Baso % (Auto) Immature Gran # (Auto) Neut # (Auto) Lymph # (Auto) [place] # (Auto) Eos # (Auto) Baso # (Auto) PT INR APTT PTT Ratio Sodium Potassium Chloride Carbon Dioxide Anion Gap BUN Creatinine Est Cr Clr Drug Dosing Est GFR ( Amer) Est GFR (Non-Af Amer) BUN/Creatinine Ratio Glucose POC Glucose 145 H 70 138 H Estimat Average Glucose Hemoglobin A1c Calcium Magnesium Total Bilirubin AST ALT Alkaline Phosphatase Total Protein Albumin Globulin Albumin/Globulin Ratio POC Stool Occult Blood Blood Type Antibody Screen Crossmatch 09/26/18 09/26/18 09/26/18 05:36 05:36 05:36 WBC 11.72 H RBC 3.98 L Hgb 10.7 L D Hct 33.6 L MCV 84.4 MCH 26.9 MCHC 31.8 L RDW Std Deviation 52.5 H RDW Coeff of Nba 17.1 H Plt Count 286 MPV 10.2 Immature Gran % (Auto) 0.3 Neut % (Auto) 77.8 Lymph % (Auto) 11.8 [place] % (Auto) 8.5 Eos % (Auto) 1.3 Baso % (Auto) 0.3 Immature Gran # (Auto) 0.04 H Neut # (Auto) 9.12 H Lymph # (Auto) 1.38 [place] # (Auto) 1.00 H Eos # (Auto) 0.15 Baso # (Auto) 0.03 PT 11.1 INR 1.1 APTT 27.9 PTT Ratio 1.0 Sodium 138 Potassium 4.5 Chloride 107 Carbon Dioxide 22 Anion Gap 9.0 BUN 62 H Creatinine 2.58 H Est Cr Clr Drug Dosing 14.3 Est GFR ( Amer) 18.8 Est GFR (Non-Af Amer) 16.2 BUN/Creatinine Ratio 23.9 H Glucose 115 H POC Glucose Estimat Average Glucose Hemoglobin A1c Calcium 8.2 L Magnesium 2.2 Total Bilirubin AST ALT Alkaline Phosphatase Total Protein Albumin Globulin Albumin/Globulin Ratio POC Stool Occult Blood Blood Type Antibody Screen Crossmatch 09/26/18 09/26/18 05:36 07:35 WBC RBC Hgb Hct MCV MCH MCHC RDW Std Deviation RDW Coeff of Nba Plt Count MPV Immature Gran % (Auto) Neut % (Auto) Lymph % (Auto) [place] % (Auto) Eos % (Auto) Baso % (Auto) Immature Gran # (Auto) Neut # (Auto) Lymph # (Auto) [place] # (Auto) Eos # (Auto) Baso # (Auto) PT INR APTT PTT Ratio Sodium Potassium Chloride Carbon Dioxide Anion Gap BUN Creatinine Est Cr Clr Drug Dosing Est GFR ( Amer) Est GFR (Non-Af Amer) BUN/Creatinine Ratio Glucose POC Glucose 129 H Estimat Average Glucose 148 Hemoglobin A1c 6.8 H Calcium Magnesium Total Bilirubin AST ALT Alkaline Phosphatase Total Protein Albumin Globulin Albumin/Globulin Ratio POC Stool Occult Blood Blood Type Antibody Screen Crossmatch
[2018-09-26] MEDS ORDERED: HYDROCORTISONE HC 2.5% CRM 30GM TUBE EXT PRN (09:18)
[2018-09-26 11:04] LABS: Hematocrit (blood only) 32.1 % (37-47); Hemoglobin 10.5 g/dL (12.0-16.0)
[2018-09-26] MEDS ORDERED: METOPROLOL SUCC 25MG EXT REL TAB PO ONE (11:30)
--- NOTE | 2018-09-26 12:40 | Cardiology Consultation ---
Date of Consultation September 26, 2018 Assessment & Plan (1) Paroxysmal atrial fibrillation: Patient recently diagnosed with atrial fibrillation in July 2018, paroxysmal. No observed recurrence per patient at risk by past echocardiogram and underlying medical problems for such. Current management as outlined above is been fraught with difficulty including labile anticoagulation now with medication induced coagulopathy. Discussed all in detail with patient and daughter and both do not desire resumption of anticoagulation at this point time. Both are aware of the potential increase risk of stroke. I am in agreement at least initially given coagulopathy. Possible resumption of warfarin may be able to be entertained in the future with patient off amiodarone Interim would increase metoprolol succinate to 37.5 mg/day continue all other antihypertensives for underlying hypertensive heart disease As patient appears to be transitioned to the area would recommend follow-up with cardiology locally 3 to 4 weeks (2) Coagulopathy: As above (3) Chronic kidney disease: As above. Would not consider reinstitution of DOAC and specifically Pradaxa (4) LBBB (left bundle branch block): History of Present Illness Reason for Consultation: Rectal bleeding, chronic anticoagulation for paroxysmal atrial fibrillation Requesting Physician: Dr Partida Attending Physician: Inocente Partida MD History of Present Illness of atrial fibrillationPatient is a complex 88-year-old female with much of her care obtained in [place] area where she originally has resided. She is recently located to the [facility] and for time being anticipates remaining here. Her past medical history is notable for long-standing hypertension, moderate left dysfunction by past echocardiogram with mixed mitral and tricuspid insufficiency, stage IV renal insufficiency, chronic anemia, type 2 diabetes mellitus. She was hospitalized in mid July with pneumonia and transient atrial fibrillation during hospital stay. Patient at that time was placed on amiodarone and warfarin for management. Patient and daughter note however post hospital discharge she had marked difficulties with labile INRs and medications were adjusted specifically amiodarone was discontinued and patient transiently placed on Eliquis. She reported to her city administrator in [place] but she did not feel well on the Eliquis and he transitioned her to Pradaxa despite renal dysfunction Patient presents now with rectal bleeding from hemorrhoidal tissue clinical evidence of coagulopathy on presentation. She denies any cardiac complaints. Notes no chest pains no tachypalpitations syncope or near syncope. Appetite's been generally stable. Overall was not feeling poorly but was aware of willi bleeding in the rectal area and was referred to the emergency room for evaluation. This morning patient has no complaints of both she and daughter state they do not wish to resume anticoagulation. She currently denies fevers chills unexplained infections. Notes no abdominal pain or discomfort. Notes no syncope or near syncope. Notes no acute neurologic complaints. Allergies Allergy/AdvReac Type Severity Reaction Status Date / Time No Known Allergies Allergy Verified 09/25/18 17:34 Home Medications Home Medications Medication Instructions Recorded Confirmed Type Januvia 25 mg PO QDD 08/04/18 09/25/18 History bumetanide 1 mg PO Q2D 08/04/18 09/25/18 History cholecalciferol (vitamin D3) 5,000 unit PO QDB 08/04/18 09/25/18 History [Vitamin D3] clonidine HCl 0.3 mg PO BIDM 08/04/18 09/25/18 History doxazosin 4 mg PO QDB 08/04/18 09/25/18 History Vitafusion 1 tab PO QDD 09/25/18 09/25/18 History Vitafusion 2 tab PO QDB 09/25/18 09/25/18 History dabigatran etexilate [Pradaxa] 75 mg PO BIDM 09/25/18 09/25/18 History glimepiride 2 mg PO QDB 09/25/18 09/25/18 History loratadine [Claritin] 10 mg PO QDB 09/25/18 09/25/18 History losartan 50 mg PO QDB 09/25/18 09/25/18 History metoprolol succinate 25 mg PO QDB 09/25/18 09/25/18 History simvastatin 10 mg PO QDD 09/25/18 09/25/18 History Patient History Medical History Chronic kidney disease (Chronic) History of hysterectomy (Chronic) Lower extremity edema (Chronic) HTN (hypertension) (Chronic) COPD (chronic obstructive pulmonary disease) (Chronic) Diabetes (Chronic) Family History Father Emphysema lung Mother Stroke Social History Preferred Language: Chinese Communication Ability: Effective Dining Room Coordinator Required: No Beliefs That Will Affect Care: None marital status: / Current Living Situation: Family current occupational status: retired Feels Safe at Home: Yes Safety Concerns: Feels Safe At This Time Smoking Status: Never smoker Hx Alcohol Use: No Hx Substance Use: No Review of Systems Review of Systems: All systems reviewed & are unremarkable except as noted in HPI & below Physical Exam Constitutional: Elderly female ,pleasant and in no acute distress Eyes: PERRL, conjunctivae normal, anicteric sclerae ENMT: external ear and nose normal, oropharynx normal Neck: trachea midline, no thyromegaly Respiratory: normal respiratory effort, lungs clear to auscultation Cardiovascular: Rate/Rhythm: regular rate and regular rhythm Heart Sounds: normal S1 and normal S2; no gallop and no murmur Palpation: normal PMI Vessels: normal carotid upstroke and radial pulses present; no JVD and no carotid bruit Extremities: no edema Gastrointestinal (Abdomen): normal bowel sounds, soft, nontender, no hepatosplenomegaly Musculoskeletal: no cyanosis or clubbing, extremities motor strength 5/5 Skin: no rashes, warm and dry Neurologic: PERRL, EOMI, accommodation nl, no face palsy, no dysarthria Psychiatric: A+Ox3, euthymic affect Results & Data Vital Signs (Past 12 Hours) Vital Signs Temp Pulse Pulse Resp BP BP Pulse Ox 09/26/18 11:02 36.7 C 77 18 172/73 H 97 09/26/18 08:00 83 09/26/18 06:53 36.7 C 83 20 185/81 H 100 09/26/18 04:55 36.5 C 90 22 188/84 H 92 09/26/18 04:08 36.7 C 79 18 188/78 H 92 09/26/18 03:58 36.6 C 79 18 192/85 H 91 09/26/18 03:08 36.5 C 87 22 193/89 H 92 09/26/18 02:08 36.5 C 72 20 185/75 H 95 09/26/18 01:38 36.6 C 76 16 182/76 H 97 09/26/18 01:23 36.6 C 70 16 175/81 H 96 09/26/18 01:07 36.5 C 67 16 191/75 H 96 Laboratory Results Laboratory Results - last 24 hr 09/25/18 09/25/18 09/25/18 17:49 17:49 17:49 WBC 6.91 RBC 3.16 L Hgb 8.3 L Hct 26.2 L MCV 82.9 MCH 26.3 MCHC 31.7 L RDW Std Deviation 53.1 H RDW Coeff of Nba 17.7 H Plt Count 290 MPV 9.8 Immature Gran % (Auto) Neut % (Auto) Lymph % (Auto) [place] % (Auto) Eos % (Auto) Baso % (Auto) Immature Gran # (Auto) Neut # (Auto) Lymph # (Auto) [place] # (Auto) Eos # (Auto) Baso # (Auto) PT 50.8 H INR 5.6 H* APTT 73.8 H* PTT Ratio 2.7 Sodium 138 Potassium 5.2 H Chloride 109 H Carbon Dioxide 24 Anion Gap 6.0 BUN 70 H Creatinine 2.74 H Est Cr Clr Drug Dosing 13.6 Est GFR ( Amer) 17.5 Est GFR (Non-Af Amer) 15.1 BUN/Creatinine Ratio 25.7 H Glucose 112 H POC Glucose Estimat Average Glucose Hemoglobin A1c Calcium 8.4 L Magnesium Total Bilirubin 0.3 AST 29 ALT 47 Alkaline Phosphatase 82 Total Protein 5.4 L Albumin 2.3 L Globulin 3.1 Albumin/Globulin Ratio 0.7 L POC Stool Occult Blood Blood Type Antibody Screen Crossmatch 09/25/18 09/25/18 09/25/18 17:50 18:45 20:35 WBC RBC Hgb Hct MCV MCH MCHC RDW Std Deviation RDW Coeff of Nba Plt Count MPV Immature Gran % (Auto) Neut % (Auto) Lymph % (Auto) [place] % (Auto) Eos % (Auto) Baso % (Auto) Immature Gran # (Auto) Neut # (Auto) Lymph # (Auto) [place] # (Auto) Eos # (Auto) Baso # (Auto) PT 48.1 H INR 5.3 H APTT 72.3 H* PTT Ratio 2.7 Sodium Potassium Chloride Carbon Dioxide Anion Gap BUN Creatinine Est Cr Clr Drug Dosing Est GFR ( Amer) Est GFR (Non-Af Amer) BUN/Creatinine Ratio Glucose POC Glucose Estimat Average Glucose Hemoglobin A1c Calcium Magnesium Total Bilirubin AST ALT Alkaline Phosphatase Total Protein Albumin Globulin Albumin/Globulin Ratio POC Stool Occult Blood Positive A Blood Type A Positive Antibody Screen NEGATIVE Crossmatch See Detail 09/25/18 09/25/18 09/26/18 21:46 22:53 01:15 WBC RBC Hgb 7.5 L Hct 23.6 L MCV MCH MCHC RDW Std Deviation RDW Coeff of Nba Plt Count MPV Immature Gran % (Auto) Neut % (Auto) Lymph % (Auto) [place] % (Auto) Eos % (Auto) Baso % (Auto) Immature Gran # (Auto) Neut # (Auto) Lymph # (Auto) [place] # (Auto) Eos # (Auto) Baso # (Auto) PT INR APTT PTT Ratio Sodium Potassium Chloride Carbon Dioxide Anion Gap BUN Creatinine Est Cr Clr Drug Dosing Est GFR ( Amer) Est GFR (Non-Af Amer) BUN/Creatinine Ratio Glucose POC Glucose 84 69 L* Estimat Average Glucose Hemoglobin A1c Calcium Magnesium Total Bilirubin AST ALT Alkaline Phosphatase Total Protein Albumin Globulin Albumin/Globulin Ratio POC Stool Occult Blood Blood Type Antibody Screen Crossmatch 09/26/18 09/26/18 09/26/18 01:32 04:42 05:05 WBC RBC Hgb Hct MCV MCH MCHC RDW Std Deviation RDW Coeff of Nba Plt Count MPV Immature Gran % (Auto) Neut % (Auto) Lymph % (Auto) [place] % (Auto) Eos % (Auto) Baso % (Auto) Immature Gran # (Auto) Neut # (Auto) Lymph # (Auto) [place] # (Auto) Eos # (Auto) Baso # (Auto) PT INR APTT PTT Ratio Sodium Potassium Chloride Carbon Dioxide Anion Gap BUN Creatinine Est Cr Clr Drug Dosing Est GFR ( Amer) Est GFR (Non-Af Amer) BUN/Creatinine Ratio Glucose POC Glucose 145 H 70 138 H Estimat Average Glucose Hemoglobin A1c Calcium Magnesium Total Bilirubin AST ALT Alkaline Phosphatase Total Protein Albumin Globulin Albumin/Globulin Ratio POC Stool Occult Blood Blood Type Antibody Screen Crossmatch 09/26/18 09/26/18 09/26/18 05:36 05:36 05:36 WBC 11.72 H RBC 3.98 L Hgb 10.7 L D Hct 33.6 L MCV 84.4 MCH 26.9 MCHC 31.8 L RDW Std Deviation 52.5 H RDW Coeff of Nba 17.1 H Plt Count 286 MPV 10.2 Immature Gran % (Auto) 0.3 Neut % (Auto) 77.8 Lymph % (Auto) 11.8 [place] % (Auto) 8.5 Eos % (Auto) 1.3 Baso % (Auto) 0.3 Immature Gran # (Auto) 0.04 H Neut # (Auto) 9.12 H Lymph # (Auto) 1.38 [place] # (Auto) 1.00 H Eos # (Auto) 0.15 Baso # (Auto) 0.03 PT 11.1 INR 1.1 APTT 27.9 PTT Ratio 1.0 Sodium 138 Potassium 4.5 Chloride 107 Carbon Dioxide 22 Anion Gap 9.0 BUN 62 H Creatinine 2.58 H Est Cr Clr Drug Dosing 14.3 Est GFR ( Amer) 18.8 Est GFR (Non-Af Amer) 16.2 BUN/Creatinine Ratio 23.9 H Glucose 115 H POC Glucose Estimat Average Glucose Hemoglobin A1c Calcium 8.2 L Magnesium 2.2 Total Bilirubin AST ALT Alkaline Phosphatase Total Protein Albumin Globulin Albumin/Globulin Ratio POC Stool Occult Blood Blood Type Antibody Screen Crossmatch 09/26/18 09/26/18 09/26/18 05:36 07:35 10:38 WBC RBC Hgb 10.5 L Hct 32.1 L MCV MCH MCHC RDW Std Deviation RDW Coeff of Nba Plt Count MPV Immature Gran % (Auto) Neut % (Auto) Lymph % (Auto) [place] % (Auto) Eos % (Auto) Baso % (Auto) Immature Gran # (Auto) Neut # (Auto) Lymph # (Auto) [place] # (Auto) Eos # (Auto) Baso # (Auto) PT INR APTT PTT Ratio Sodium Potassium Chloride Carbon Dioxide Anion Gap BUN Creatinine Est Cr Clr Drug Dosing Est GFR ( Amer) Est GFR (Non-Af Amer) BUN/Creatinine Ratio Glucose POC Glucose 129 H Estimat Average Glucose 148 Hemoglobin A1c 6.8 H Calcium Magnesium Total Bilirubin AST ALT Alkaline Phosphatase Total Protein Albumin Globulin Albumin/Globulin Ratio POC Stool Occult Blood Blood Type Antibody Screen Crossmatch 09/26/18 11:26 WBC RBC Hgb Hct MCV MCH MCHC RDW Std Deviation RDW Coeff of Nba Plt Count MPV Immature Gran % (Auto) Neut % (Auto) Lymph % (Auto) [place] % (Auto) Eos % (Auto) Baso % (Auto) Immature Gran # (Auto) Neut # (Auto) Lymph # (Auto) [place] # (Auto) Eos # (Auto) Baso # (Auto) PT INR APTT PTT Ratio Sodium Potassium Chloride Carbon Dioxide Anion Gap BUN Creatinine Est Cr Clr Drug Dosing Est GFR ( Amer) Est GFR (Non-Af Amer) BUN/Creatinine Ratio Glucose POC Glucose 171 H Estimat Average Glucose Hemoglobin A1c Calcium Magnesium Total Bilirubin AST ALT Alkaline Phosphatase Total Protein Albumin Globulin Albumin/Globulin Ratio POC Stool Occult Blood Blood Type Antibody Screen Crossmatch
--- NOTE | 2018-09-26 14:53 | Discharge Summary ---
Date of Service September 26, 2018 Admission HPI Per Admitting Provider CHIEF COMPLAINT: Rectal bleed. HISTORY OF PRESENT ILLNESS: This 88-year-old female with past medical history significant for type 2 diabetes, AFib, severe mitral regurgitation, severe tricuspid regurgitation, hypertension, chronic kidney disease stage IV, anemia of chronic kidney disease , presents with rectal bleed. The patient is from [facility]. She is currently staying with her daughter since last 2 months. She was seen in the hospital in July with rapid AFib and acute respiratory failure secondary to acute systolic and diastolic CHF. She was improved and also at that time she was treated for pneumonia. She was discharged on Coumadin, amiodarone and Bumex every other day. As per daughter, the Coumadin was stopped over a month ago because it was difficult to control her INR as they were fluctuating and she was kept on Eliquis for 1 week, but after that her road hogger operator in [place] recommended Pradaxa, which she is on.Since last Monday she noticed some blood per rectum. Yesterday, it got a little more worse. She had some drops of blood dropping from her rectum. It happened today too and it was not stopping, so that she came to the ER. Hemoglobin stable at 8.3. Hemoccult was positive. Her INR was 5.6 and APTT was 73.8 and PT was 15.8. She was given IV vitamin K in the ER. Currently resting comfortably. Denies any abdominal pain. Denies any chest pain, no shortness of breath, no cough, no nausea, no vomiting, no headache, no blurred vision, no earache, no runny nose, no sore throat, no difficulty swallowing. Appetite is good. She ambulates with the help of cane at home. Normal bladder movements. No burning micturition, no blood in the urine. She has some swelling in the legs, no rash. Currently, she is resting comfortably and hemodynamically stable. ALLERGIES: No known drug allergies. PAST MEDICAL HISTORY: As mentioned above. PAST SURGICAL HISTORY: History of hysterectomy. FAMILY HISTORY: Father had emphysema. Mother had stroke. SOCIAL HISTORY: Currently lives with her daughter. No smoking history. No alcohol history. No drug use. REVIEW OF SYSTEMS: As per HPI. Rest of the systems negative. Admission Exam Per Admitting Provider PHYSICAL EXAMINATION: GENERAL: The patient is old and frail, not in acute distress. VITAL SIGNS: Temperature 36.7, pulse 58, respiratory rate 18, blood pressure 181/72, oxygen 98% on room air. HEENT: No pallor, no icterus. Pupils equal, round, and reactive to light. NECK: No JVD, no neck masses, no carotid bruits. CARDIOVASCULAR: S1, S2 heard, regular rate and rhythm, diastolic murmur in the mitral area. RESPIRATORY SYSTEM: Clear to auscultation bilaterally. No wheezing, no crackles. ABDOMEN: Soft, bowel sounds present, nontender. No distention. CENTRAL NERVOUS SYSTEM: Cranial nerves II-XII grossly intact. Nonfocal. EXTREMITIES: Mild pedal edema present, no erythema seen. Principal Diagnosis RECTAL BLEEDING, ANEMIA, IN THE SETTING OF SUPRATHERAPEUTIC INR, ON PRADAXA FOR ATRIAL FIBRILLATION, CKD STAGE IV Discharge Exam General- oriented x 3, not in distress, speaks in sentences with no effort or accessory muscle use Head- atraumatic Eyes- PERRL, EOMI, anicteric ENT- oropharynx clear Neck- supple, no JVD, no adenopathy, no thyromegaly; carotids +2/2, no bruits appreciated Lungs- clear to auscultation bilaterally, no rales/wheezes Heart- normal rate, regular rhythm; no murmur, no gallop, no rub appreciated Abdomen- normal bowel sounds, nondistended, soft, nontender, no masses or hepatosplenomegaly Extremities- no pretibial edema, no calf tenderness; peripheral pulses intact Neuro- alert, oriented x 3; CN 2-12 grossly intact; motor 5/5 bilaterally;sensation 100% on all extremities; no other gross focal neurologic deficits Skin- warm & dry Discharge Data Allergies Allergy/AdvReac Type Severity Reaction Status Date / Time No Known Allergies Allergy Verified 09/25/18 17:34 Consultations 09/25/18 20:27 ED Decision to Admit Stat 09/25/18 21:33 Consult Case Management - Discharge Planning Routine 09/26/18 08:00 Consult Cardiology Routine Consult Gastroenterology Routine Consult Hematology Routine Hospital Course (1) Rectal bleeding: (1) Rectal bleeding: ASSESSMENT AND PLAN: This is an 88-year-old female who presents with rectal bleed. 1. Rectal bleed In the setting of Pradaxa use for atrial fibrillation, INR 5 Chronic hemorrhoids Resolved in the hospital GI consulted Patient's family declined colonoscopy at this time Recommend Proctazone, Metamucil daily Hemoglobin 7.5 on admission, status post 2 units of packed RBCs given Hemoglobin then increased to 10 Repeat CBC on follow-up with primary care physician INR 5.6 on admission, likely secondary to Pradaxa use, in the setting of CKD stage IV Field Observer Dr. Torres consulted over the phone, recommend vitamin K and Idarucizumab (antidote for Pradaxa) INR improved to 1.1 repeat INR level on follow-up with primary care physician 2. Atrial fibrillation: No longer on amiodarone at this time. The patient is on Toprol-XL. -Dr. Ballard from cardiology service consulted, recommendation: At this time anticoagulation declined by patient and her daughter, also not recommended by Dr. Ballard "Possible resumption of warfarin may be able to be entertained in the future with patient off amiodarone Interim would increase metoprolol succinate to 37.5 mg/day continue all other antihypertensives for underlying hypertensive heart disease As patient appears to be transitioned to the area would recommend follow-up with cardiology locally 3 to 4 weeks" 3. elevated INR and APTT. Likely secondary to Pradaxa, in the setting of CKD stage IV 4. Chronic systolic and diastolic congestive heart failure, ejection fraction of 30%-35%, severe tricuspid regurgitation and severe mitral regurgitation -Euvolemic, continue Bumex 5. Chronic kidney disease stage IV: Stable 6. Hyperkalemia: Potassium of 5.2. Given Kayexalate, improved to 4.5 repeat BMP on follow-up with primary care physician 7. Hypertension: Not at goal while admitted Metoprolol XL increased to 37.5 mg p.o. daily Monitor blood pressure Continue usual blood pressure medications 8. Diabetes: A1c 6.8 continue usual glimepiride and Januvia Disposition Discharge to home with home services Follow-up with primary care physician as outlined in discharge instructions Follow-up with [facility] cardiology clinic in 3 to 4 weeks Discussed plan of care with patient and her daughter in detail and at length, all questions answered They are understanding, comfortable, and agreeable with the plan of care Total Time Total Time Spent Total Time Spent (In Minutes): 50 minutes Discharge Plan Discharge Items Patient Disposition: Home - Self-Care Reason For Visit: RECTAL BLEED Discharge Diagnosis: RECTAL BLEEDING WITH ANEMIA, ELEVATED INR LEVEL Discharge Goals: Diagnostic testing and Therapeutic intervention Activity: As commented below Activity Comment: RESUME ACTIVITY GRADUALLY TOLERATED Lifting: Wait until after follow-up appointment Exercise/Sports: Wait until after follow-up appointment Driving/Machine Use Comment: NO DRIVING Non-emergency contact: Primary Care Provider and Service Counselor Call non-emergency contact if: you have any medication questions and you have a fever Follow-up/Referrals: Michael Sandra, DO [Primary Care Provider] - Diet: Heart Healthy Add Provider Instructions: DO NOT TAKE ASPIRIN, COUMADIN, OR ANY BLOOD THINNERS. TAKE METAMUCIL DAILY. ENSURE ADEQUATE DAILY FLUIID INTAKE. PLEASE FOLLOW UP WITH PRIMARY CARE PHYSICIAN DR. GABINO HOUSTON ([facility]) ON FRIDAY SEPTEMBER 28, 2018 AT 12:45PM. CALL PRIMARY CARE PHYSICIAN OR RETURN TO THE ER IMMEDIATELY IF WITH WORSENING OF SYMPTOMS, WEAKNESS, BLACK OR BLOODY STOOLS, ABDOMINAL PAIN, SIGNS OF BLEEDING. Prescriptions: New hydrocortisone [Proctosol HC] 2.5 % Cream With Perineal Applicator 1 applic EXT BID PRN (Reason: hemorrhoids) 30 Days Qty: 1 RF: 2 metoprolol succinate 25 mg Tablet Extended Release 24 Hr 37.5 mg PO QDB 30 Days Qty: 45 RF: 2 Continued clonidine HCl 0.3 mg tablet 0.3 mg PO BIDM RF: 0 doxazosin 4 mg tablet 4 mg PO QDB RF: 0 bumetanide 1 mg tablet 1 mg PO Q2D RF: 0 Januvia 25 mg tablet 25 mg PO QDD RF: 0 cholecalciferol (vitamin D3) [Vitamin D3] 5,000 unit Tablet 5,000 unit PO QDB RF: 0 losartan 50 mg Tablet 50 mg PO QDB RF: 0 simvastatin 10 mg Tablet 10 mg PO QDD RF: 0 glimepiride 2 mg Tablet 2 mg PO QDB RF: 0 loratadine [Claritin] 10 mg Tablet 10 mg PO QDB RF: 0 Vitafusion 2 tab PO QDB RF: 0 Vitafusion 1 tab PO QDD RF: 0 Discontinued Pradaxa 75 mg Capsule 75 mg PO BIDM RF: 0 Stand-Alone Forms: [facility] Discharge Orders: Discharge Order (Routine); Ordered 09/26/18 Ordered By: Inocente Partida Admission Data Admit Date/Time: 09/25/18 20:29 Attending Provider: Inocente Partida Admit Provider: Daniel Martinez Primary Care Provider: Michael Sandra Other Providers: Paco Archer ; Andrea Parsons ; Pedrito Barahona ; Garrison Ballard ; Leonel Rivera ; Michael Vega ; Rosas Mai ; Zakiya Gibson ; Jeanne Arango ; Shelley Castaneda ; Tao Ortez ; Shila Zaidi ; Marcelo Montanez ; Jerry Schmitt ; Philip Morocho ; Aby Chun ; Girish Ramirez ; Shad Kumar. ; Eusebia Centeno ; Leslye Gillespie ; Gabbi Plunkett ; Donna Bolivar ; Sam Herzog ; Aime Diehl ; Tiarra Diehl Service: Telemetry Other Interventions: Discharge Summary Assessment (RN) Last Done: 09/26/18 15:16 DC Date/Time DO NOT enter until pt leaves facility: 09/26/18 15:54
[2018-09-26 15:31] LABS: INR 5.6 (0.9-1.1)
[2018-09-26] MEDS ORDERED: SIMVASTATIN 10 MG TAB PO SCH (16:30)
--- NOTE | 2018-09-26 20:42 | Hospitalist Progress Note ---
Date of Service September 26, 2018 Assessment & Plan (1) Rectal bleeding: ASSESSMENT AND PLAN: This is an 88-year-old female who presents with rectal bleed. 1. Rectal bleed In the setting of Pradaxa use for atrial fibrillation, INR 5 Chronic hemorrhoids Resolved in the hospital GI consulted Patient's family declined colonoscopy at this time Recommend Proctazone, Metamucil daily Hemoglobin 7.5 on admission, status post 2 units of packed RBCs given Hemoglobin then increased to 10 Repeat CBC on follow-up with primary care physician INR 5.6 on admission, likely secondary to Pradaxa use incentive CKD stage IV Plasterer Tender Dr. Torres consulted over the phone, recommend vitamin K and Idarucizumab (antidote for Pradaxa) INR improved to 1.1 repeat INR level on follow-up with primary care physician 2. Atrial fibrillation: No longer on amiodarone at this time. The patient is on Toprol-XL. -Dr. Ballard from cardiology service consulted, recommendation: At this time anticoagulation declined by patient and her daughter, also not recommended by Dr. Ballard "Possible resumption of warfarin may be able to be entertained in the future with patient off amiodarone Interim would increase metoprolol succinate to 37.5 mg/day continue all other antihypertensives for underlying hypertensive heart disease As patient appears to be transitioned to the area would recommend follow-up with cardiology locally 3 to 4 weeks" 3. elevated INR and APTT. Likely secondary to Pradaxa miscellaneous continue stage IV 4. Chronic systolic and diastolic congestive heart failure, ejection fraction of 30%-35%, severe tricuspid regurgitation and severe mitral regurgitation -Euvolemic, continue Bumex 5. Chronic kidney disease stage IV: Stable 6. Hyperkalemia: Potassium of 5.2. Given Kayexalate, improved to 4.5 repeat BMP on follow-up with primary care physician 7. Hypertension: Not at goal while admitted Metoprolol XL increased to 37.5 mg p.o. daily Monitor blood pressure Continue usual blood pressure medications 8. Diabetes: A1c 6.8 continue usual glimepiride and Januvia Disposition Discharge to home with home services Follow-up with primary care physician as outlined in discharge instructions Follow-up with [facility] cardiology clinic in 3 to 4 weeks Discussed plan of care with patient and her daughter in detail and at length, all questions answered They are understanding, comfortable, and agreeable with the plan of care Subjective Follow-up for rectal bleeding in the setting of elevated INR Seen resting in bed, comfortable, no distress Patient's daughter at the bedside Denies recurrence of hematochezia or melena while admitted Denies pain with bowel movement, no abdominal pain No headache, dizziness, chest pain, shortness of breath, palpitations Walking in the room with no problems Patient's daughter states patient is ready and would like to be discharged today Review of Systems Review of Systems: All systems reviewed & are unremarkable except as noted in HPI & below Physical Exam Physical Exam: General- oriented x 3, not in distress, speaks in sentences with no effort or accessory muscle use Head- atraumatic Eyes- PERRL, EOMI, anicteric ENT- oropharynx clear Neck- supple, no JVD, no adenopathy, no thyromegaly; carotids +2/2, no bruits appreciated Lungs- clear to auscultation bilaterally, no rales/wheezes Heart- normal rate, regular rhythm; no murmur, no gallop, no rub appreciated Abdomen- normal bowel sounds, nondistended, soft, nontender, no masses or hepatosplenomegaly Extremities- no pretibial edema, no calf tenderness; peripheral pulses intact Neuro- alert, oriented x 3; CN 2-12 grossly intact; motor 5/5 bilaterally;sensation 100% on all extremities; no other gross focal neurologic deficits Skin- warm & dry Results & Data Vital Signs (Past 12 Hours) Vital Signs Temp Pulse Resp BP Pulse Ox 09/26/18 15:16 36.7 C 77 18 160/78 H 97 09/26/18 13:57 160/78 H 09/26/18 11:02 36.7 C 77 18 172/73 H 97 Laboratory Results Laboratory Results - last 24 hr 09/25/18 09/25/18 09/25/18 17:49 18:45 20:35 WBC RBC Hgb Hct MCV MCH MCHC RDW Std Deviation RDW Coeff of Nba Plt Count MPV Immature Gran % (Auto) Neut % (Auto) Lymph % (Auto) [place] % (Auto) Eos % (Auto) Baso % (Auto) Immature Gran # (Auto) Neut # (Auto) Lymph # (Auto) [place] # (Auto) Eos # (Auto) Baso # (Auto) PT 48.1 H INR 5.6 H* 5.3 H APTT 72.3 H* PTT Ratio 2.7 Sodium Potassium Chloride Carbon Dioxide Anion Gap BUN Creatinine Est Cr Clr Drug Dosing Est GFR ( Amer) Est GFR (Non-Af Amer) BUN/Creatinine Ratio Glucose POC Glucose Estimat Average Glucose Hemoglobin A1c Calcium Magnesium Blood Type A Positive Antibody Screen NEGATIVE Crossmatch See Detail 09/25/18 09/25/18 09/26/18 21:46 22:53 01:15 WBC RBC Hgb 7.5 L Hct 23.6 L MCV MCH MCHC RDW Std Deviation RDW Coeff of Nba Plt Count MPV Immature Gran % (Auto) Neut % (Auto) Lymph % (Auto) [place] % (Auto) Eos % (Auto) Baso % (Auto) Immature Gran # (Auto) Neut # (Auto) Lymph # (Auto) [place] # (Auto) Eos # (Auto) Baso # (Auto) PT INR APTT PTT Ratio Sodium Potassium Chloride Carbon Dioxide Anion Gap BUN Creatinine Est Cr Clr Drug Dosing Est GFR ( Amer) Est GFR (Non-Af Amer) BUN/Creatinine Ratio Glucose POC Glucose 84 69 L* Estimat Average Glucose Hemoglobin A1c Calcium Magnesium Blood Type Antibody Screen Crossmatch 09/26/18 09/26/18 09/26/18 01:32 04:42 05:05 WBC RBC Hgb Hct MCV MCH MCHC RDW Std Deviation RDW Coeff of Nba Plt Count MPV Immature Gran % (Auto) Neut % (Auto) Lymph % (Auto) [place] % (Auto) Eos % (Auto) Baso % (Auto) Immature Gran # (Auto) Neut # (Auto) Lymph # (Auto) [place] # (Auto) Eos # (Auto) Baso # (Auto) PT INR APTT PTT Ratio Sodium Potassium Chloride Carbon Dioxide Anion Gap BUN Creatinine Est Cr Clr Drug Dosing Est GFR ( Amer) Est GFR (Non-Af Amer) BUN/Creatinine Ratio Glucose POC Glucose 145 H 70 138 H Estimat Average Glucose Hemoglobin A1c Calcium Magnesium Blood Type Antibody Screen Crossmatch 09/26/18 09/26/18 09/26/18 05:36 05:36 05:36 WBC 11.72 H RBC 3.98 L Hgb 10.7 L D Hct 33.6 L MCV 84.4 MCH 26.9 MCHC 31.8 L RDW Std Deviation 52.5 H RDW Coeff of Nba 17.1 H Plt Count 286 MPV 10.2 Immature Gran % (Auto) 0.3 Neut % (Auto) 77.8 Lymph % (Auto) 11.8 [place] % (Auto) 8.5 Eos % (Auto) 1.3 Baso % (Auto) 0.3 Immature Gran # (Auto) 0.04 H Neut # (Auto) 9.12 H Lymph # (Auto) 1.38 [place] # (Auto) 1.00 H Eos # (Auto) 0.15 Baso # (Auto) 0.03 PT 11.1 INR 1.1 APTT 27.9 PTT Ratio 1.0 Sodium 138 Potassium 4.5 Chloride 107 Carbon Dioxide 22 Anion Gap 9.0 BUN 62 H Creatinine 2.58 H Est Cr Clr Drug Dosing 14.3 Est GFR ( Amer) 18.8 Est GFR (Non-Af Amer) 16.2 BUN/Creatinine Ratio 23.9 H Glucose 115 H POC Glucose Estimat Average Glucose Hemoglobin A1c Calcium 8.2 L Magnesium 2.2 Blood Type Antibody Screen Crossmatch 09/26/18 09/26/18 09/26/18 05:36 07:35 10:38 WBC RBC Hgb 10.5 L Hct 32.1 L MCV MCH MCHC RDW Std Deviation RDW Coeff of Nba Plt Count MPV Immature Gran % (Auto) Neut % (Auto) Lymph % (Auto) [place] % (Auto) Eos % (Auto) Baso % (Auto) Immature Gran # (Auto) Neut # (Auto) Lymph # (Auto) [place] # (Auto) Eos # (Auto) Baso # (Auto) PT INR APTT PTT Ratio Sodium Potassium Chloride Carbon Dioxide Anion Gap BUN Creatinine Est Cr Clr Drug Dosing Est GFR ( Amer) Est GFR (Non-Af Amer) BUN/Creatinine Ratio Glucose POC Glucose 129 H Estimat Average Glucose 148 Hemoglobin A1c 6.8 H Calcium Magnesium Blood Type Antibody Screen Crossmatch 09/26/18 11:26 WBC RBC Hgb Hct MCV MCH MCHC RDW Std Deviation RDW Coeff of Nba Plt Count MPV Immature Gran % (Auto) Neut % (Auto) Lymph % (Auto) [place] % (Auto) Eos % (Auto) Baso % (Auto) Immature Gran # (Auto) Neut # (Auto) Lymph # (Auto) [place] # (Auto) Eos # (Auto) Baso # (Auto) PT INR APTT PTT Ratio Sodium Potassium Chloride Carbon Dioxide Anion Gap BUN Creatinine Est Cr Clr Drug Dosing Est GFR ( Amer) Est GFR (Non-Af Amer) BUN/Creatinine Ratio Glucose POC Glucose 171 H Estimat Average Glucose Hemoglobin A1c Calcium Magnesium Blood Type Antibody Screen Crossmatch
[2018-09-27] MEDS ORDERED: BUMETANIDE 1 MG TAB PO SCH (07:30)
== END 2018-09-26 15:54 | disposition home or self-care (01) | DRG 813 ==
LOC: ED 17:04 → SUATTDRO 20:29 → 2S 20:29